=== PATIENT | male | born 1970 | race Caucasian/White ===

== ENCOUNTER 2019-01-07 14:58 | Emergency (ER) | payer MEDICAID, SELFPAY ==
--- NOTE | 2019-01-07 15:00 | W.ED.GENAD ---
Discharge Plan Disposition Patient Disposition: HOME Condition: Stable Discharge Details Chief Complaint: DentalOral Clinical Impression: Dental infection, Dental abscess Primary Care Provider: Carlton Rosales ED Provider: Ailyn Webster Home Meds and New Rx's Prescriptions: New clindamycin HCl 150 mg capsule 450 mg PO TID 7 Days Qty: 63 RF: 0 Continued gemfibrozil 600 MG tablet 600 mg PO BID RF: 0 metronidazole 500 MG tablet 500 mg PO QID Qty: 40 RF: 0 Xarelto 10 mg Tablet 10 mg PO DAILY RF: 0 Discharge Instructions Instructions: Dental Abscess (ED) Additional Instructions: Take the antibiotics until finished. Take Tylenol as needed and directed for pain. Follow-up with a dentist for reevaluation. Return to the emergency department if you develop any worsening or new concerning symptoms. Discharge Data Discharge Date/Time-TO BE ENTERED AT DEPARTURE: 01/07/19 16:04 Discharge Physician: Ailyn Webster Medical Decision Making 48-year-old male with a history of hypertension and DVT on Xarelto presents with right lower tooth pain with concern for abscess for the past 5 days. Denies fever. Patient appears nontoxic. Afebrile. Speaking in full sentences. No trismus, drooling, submandibular swelling. There are dental caries and poor dentition throughout. There is right lower jaw pain and swelling. No obvious discrete abscess noted but there may be purulent discharge underneath. 2 cc of lidocaine with epinephrine injected in area of edema right lower jaw. There was approximately 3cc of serosanguineous drainage removed with 18-gauge needle and right lower jaw. Area was flushed and patient gargled with sterile water. Bleeding well controlled. Patient observed for 30 minutes and no further bleeding. A dose of clindamycin was given here as well as a prescription. Patient was advised to follow-up with a dentist for reevaluation and to return here anytime if worse. HPI General Mode of arrival: ambulatory. Date/Time Provider Initiated Documentation: 01/07/19 14:59. Limitations to Documentation: no limitations. Information obtained by: patient. HPI Narrative: Pt is a 48yo M who presents with right lower tooth pain for the past 6 days. Patient states the area is swollen and painful and is concerned about an abscess. He denies any fever. Patient is on Xarelto for history of multiple DVTs. He denies any chest pain or shortness of breath. Related Data Home Medications Medication Instructions Recorded Confirmed gemfibrozil 600 mg PO BID 06/25/15 01/07/19 metronidazole 500 mg PO QID #40 tab 10/24/16 01/07/19 Xarelto 10 mg PO DAILY 01/07/19 01/07/19 clindamycin HCl 450 mg PO TID 7 Days #63 cap 01/07/19 Previous Rx's Medication Instructions Recorded metronidazole 500 mg PO QID #40 tab 10/24/16 clindamycin HCl 450 mg PO TID 7 Days #63 cap 01/07/19 Allergies Allergy/AdvReac Type Severity Reaction Status Date / Time Penicillins AdvReac Mild Diarrhea Unverified 01/07/19 15:04 Review of Systems All systems reviewed & are unremarkable except as noted in HPI and below Constitutional Constitutional: Reports as per HPI, Denies chills and Denies fever(s) Eyes Eyes: Denies blurry vision ENT Ears, Nose, Mouth, and Throat: Denies dizziness, Denies sore throat and Denies throat swelling Cardiovascular Cardiovascular: Denies chest pain and Denies dyspnea Respiratory Respiratory: Denies cough and Denies dyspnea Gastrointestinal Gastrointestinal: Denies abdominal pain, Denies diarrhea and Denies vomiting Genitourinary Genitourinary: Denies hematuria and Denies dysuria Musculoskeletal Musculoskeletal: Denies back pain and Denies numbness Integumentary/Breasts Skin/Breast: Denies lesions and Denies rash Neurologic Neurologic: Denies dizziness, Denies focal weakness and Denies numbness Allergic/Immunologic Allergic/Immunologic: Denies throat swelling COUNTS INCLUDE 234 BEDS AT THE [facility] Medical History DVT (deep venous thrombosis) (Chronic) Hx of hyperlipidemia (Acute) Surgical History History of appendectomy (Chronic) History of eye surgery (Acute) Social History Smoking/Tobacco Use Status: Current every day Drug use: Never Do you feel safe at home: Yes Do you feel safe in your relationship?: Yes Exam Const General: cooperative, healthy appearing and no acute distress HENMT Head: normal to inspection Ears: hearing grossly normal bilaterally, external ears normal and TM's normal bilaterally General nose exam: external nose normal Face and sinus: normal facial exam Teeth image: 1. Localized edema and erythema and tenderness to palpation. No obvious fluctuant abscess noted. Throat: posterior oropharynx normal Eyes General: appearance normal, both eyes and all related structures Pupils: PERRL EOM: EOM intact bilaterally Neck Neck: normal visual inspection and No submandibular swelling Lymphatic: no lymphadenopathy noted Resp Effort & Inspection: normal respiratory effort and able to speak in complete sentences Cardio Rate: regular rate Neuro Cognition: normal cognition Speech: speech normal Motor: muscle tone normal throughout Sensory Exam: no sensory deficits noted Extrem General: full ROM Psych Appearance: grossly normal Mental Status: mental status grossly normal Speech and Movement: speech and movement normal Affect: normal affect Procedures Abscess I/D Site: Other (lower posterior tooth) Side (if applicable): Right Local Anesthetic: Lidocaine 1% and With Epi Amount of anesthesia used (mL): 2 Technique: Needle Aspiration Amount of fluid expressed (mL): 3 Irrigation: Yes Packing used?: None Complications: Bleeding (minor, stopped with pressure)
[2019-01-07 15:02] VITALS: BP 164/102; PULSE 86; RESP 18; TEMP 36.4; O2SAT 97
[2019-01-07] MEDS: Acetaminophen 500 MG TAB (16:00)
[2019-01-07] MEDS: Clindamycin 150 MG CAP 450 MG PO (16:00)
== END 2019-01-07 16:04 | disposition home or self-care (01) ==
PROVIDERS: Emergency Provider Physician Assistant; PCP General Practice
DX: K04.7 Periapical abscess without sinus (principal); I10 Essential (primary) hypertension; Z79.01 Long term (current) use of anticoagulants
CPT/HCPCS: 10060; 99283

== ENCOUNTER 2019-04-15 10:11 | Outpatient (CLI) | payer MEDICAID, SELFPAY ==
[2019-04-15 10:52] LABS: HCT 46.2 % (40.0-50.0); Mean Corp. HGB Concentration 34.6 g/dL (32.0-36.0); Mean Corpuscular Volume 86.5 fL (80-95); Mean Platelet Volume 11.7 fL (8.0-11.0); Platelet Count 227 x1000/uL (130-400); RBC 5.34 m/cumm (4.50-6.00); RBC Distribution Width 13.3 % (11.8-14.1); White Blood Cell Count 8.55 k/cumm (4.4-10.8)
[2019-04-15 11:52] LABS: ALT 115 U/L (16-63); AST 49 U/L (15-37); BUN 10 mg/dL (7-18); CREATININE 0.71 mg/dL (0.70-1.30); Calcium 9.1 mg/dL (8.5-10.1); Calculated LDL 144 mg/dL (<100); Chloride 102 mmol/L (98-107); Cholesterol 205 mg/dL (<200); Glucose 163 mg/dL (74-106); HDL Cholesterol 20 mg/dL (40-60); Sodium 139 mmol/L (136-145); Triglyceride 209 mg/dL (<150)
[2019-04-15 12:30] LABS: Hemoglobin A1C 8.6 % (3.8-5.6)
[2019-04-16 09:39] LABS: Von Willebrand Factor Antigen 165 % (50-185)
[2019-04-19 09:38] LABS: Factor 8 Assay 178 % (50-150)
[2019-04-21 09:44] LABS: Factor V Leiden(R506Q) Mut Heterozygous (Negative)
== END 2019-04-15 10:31 ==
PROVIDERS: PCP Nurse Practitioner Family; Visit Provider Nurse Practitioner Family
DX: E11.9 Type 2 diabetes mellitus without complications (principal); Z86.718 Personal history of other venous thrombosis and embolism; E78.5 Hyperlipidemia, unspecified
CPT/HCPCS: 36415; 80048; 80061; 81241; 85027; 85245; 85246; 85397; 82043; 82570; 83036; 84450; 84460; 85240

== ENCOUNTER 2019-06-03 12:10 | Outpatient (REF) | payer MEDICAID, SELFPAY ==
[2019-06-03 19:44] LABS: PROTEIN 125.3 mg/dL
[2019-06-03 19:47] LABS: COMMENT (LAB VIEW ONLY) 146.09 mg/dL; Prot/Crea Ur Ratio 0.85
[2019-06-03 20:00] LABS: Bilirubin Negative (Negative); Blood Negative (Negative); Clarity Clear (Clear); Glucose 500 mg/dL (Negative); Ketones Negative (Negative); Leukocyte Esterase Negative (Negative); Nitrite Negative (Negative); Specific Gravity >= 1.030 (1.005-1.025); Urobilinogen 0.2 EU/dL (Up TO 0.2)
[2019-06-03 20:27] LABS: Bacteria Negative HPF (Negative); C & S Indicated? No; Crystals Negative HPF (Negative); Epithelial Cells Negative HPF (Negative); Mucus Negative (Negative); RBC Negative HPF (0-2); WBC Negative HPF (0-5)
== END 2019-06-03 12:30 ==
LOC: NCHCN 12:10
PROVIDERS: PCP Nurse Practitioner Family; Visit Provider Nurse Practitioner Family
DX: E11.9 Type 2 diabetes mellitus without complications (principal); E78.5 Hyperlipidemia, unspecified
CPT/HCPCS: 81003; 81015; 82565; 84156

== ENCOUNTER 2020-02-21 03:35 | Outpatient (CLI) | payer MEDICAID, SELFPAY ==
[2020-02-22 16:50] LABS: COVID-19 RT-PCR UVMMC Result Negative (Negative)
== END 2020-02-21 03:55 ==
PROVIDERS: PCP Nurse Practitioner Family; Visit Provider Family Medicine
DX: Z11.59 Encounter for screening for other viral diseases (principal); Z01.811 Encounter for preprocedural respiratory examination
CPT/HCPCS: U0003

== ENCOUNTER 2020-02-24 04:04 | Outpatient (CLI) | payer MEDICAID, SELFPAY ==
[2020-02-24] MEDS: Albuterol HFA 18 GM 200 PUFF INH IH (13:58)
[2020-02-24] MEDS: Inhaler, Assist Device 1 EACH MC (13:58)
--- NOTE | 2020-02-24 18:00 | W.PFT ---
Date of service: 02/24/20 Time of Service: 01:07 Pulmonary Function Test Result Interpretation Spirometry: Borderline Mild obstructive airways disease with no bronchodilator response, May be a normal variant Lung Volumes: No restriction Diffusion Capacity: Normal Airway Pressure: Normal Impression Overall, likely, normal pulmonary function study, There may be borderline mild obstruction, however this is likely a normal variant, and not an abnormal finding. If underlying asthma is suspected, proceeding with methacholine challenge testing may prove to be useful Clinical Correlation therefore is recommended.
--- NOTE | 2020-02-28 08:21 | W.PFT ---
Date of service: 02/24/20 Time of Service: 01:07 Pulmonary Function Test Result Interpretation Spirometry: No evidence of obstructive airways disease, no bronchodilator response Lung Volumes: No evidence of restriction Diffusion Capacity: Normal Airway Pressure: Normal Impression Normal pulmonary function test Clinical Correlation therefore is recommended.
== END 2020-02-24 04:24 ==
PROVIDERS: PCP Nurse Practitioner Family; Visit Provider Nurse Practitioner Family
DX: Z02.79 Encounter for issue of other medical certificate (principal); Z13.83 Encounter for screening for respiratory disorder NEC; Z72.0 Tobacco use
CPT/HCPCS: 94060; 94726; 94729

== ENCOUNTER 2020-04-20 16:30 | Outpatient (REF) | payer MEDICAID, SELFPAY ==
[2020-04-22 14:15] LABS: COVID-19 RT-PCR UVMMC Result Negative (Negative)
== END 2020-04-20 16:31 | disposition home or self-care (01) ==
LOC: NCHCN 16:30
PROVIDERS: PCP Family Medicine; Visit Provider Family Medicine
DX: Z20.822 Contact with and (suspected) exposure to COVID-19 (principal); J02.9 Acute pharyngitis, unspecified
CPT/HCPCS: U0003

== ENCOUNTER 2020-05-11 17:36 | Outpatient (REF) | payer MEDICAID, SELFPAY ==
[2020-05-11 21:29] LABS: ALT 106 U/L (16-63); AST 44 U/L (15-37); Anion Gap 10.8 mmol/L (3-11); BUN 13 mg/dL (7-18); CO2 26.2 mmol/L (21.0-32.0); CREATININE 0.9 mg/dL (0.70-1.30); Calcium 9.3 mg/dL (8.5-10.1); Chloride 101 mmol/L (98-107); Cholesterol 200 mg/dL (<200); Glucose 148 mg/dL (74-106); HDL Cholesterol 19 mg/dL (40-60); Sodium 138 mmol/L (136-145); Triglyceride 417 mg/dL (<150)
[2020-05-11 22:07] LABS: LDL CHOLESTEROL 113 mg/dL (<100)
== END 2020-05-11 17:37 | disposition home or self-care (01) ==
LOC: NCHCN 17:36
PROVIDERS: PCP Family Medicine; Visit Provider Nurse Practitioner Family
DX: E78.5 Hyperlipidemia, unspecified (principal)
CPT/HCPCS: 80048; 80061; 83721; 84450; 84460

== ENCOUNTER 2020-08-01 02:32 | Outpatient (CLI) | payer MEDICAID, SELFPAY ==
--- NOTE | 2020-08-01 | DI.US_ITS ---
Exam(s) US SOFT TISS ABD WALL/LOW BACK EXAM: US SOFT TISS ABD WALL/LOW BACK CLINICAL HISTORY: LUMP LOWER RT BACK, R22.9. TECHNIQUE: Ultrasound was performed using standard protocol. COMPARISON: No exams were available for comparison FINDINGS: Sonographic assessment utilizing grayscale and color Doppler imaging was performed and targeted to th e area of clinical concern. There is a 4.4 x 1.6 x 5.6 cm subcutaneous mass in the right lower back corresponding to the palpable abnormality. No internal blood flow is seen. No cystic component is identified. It is isoechoic t o the surrounding fat. This likely reflects a lipoma. If there is continued clinical concern, an MR I may be obtained for further evaluation. IMPRESSION: DATA REPOSITORY:
== END 2020-08-01 02:52 ==
PROVIDERS: PCP Family Medicine; Visit Provider Nurse Practitioner Family
DX: R22.2 Localized swelling, mass and lump, trunk (principal)
CPT/HCPCS: 76705

== ENCOUNTER 2021-09-27 18:35 | Outpatient (REF) | payer MEDICAID, SELFPAY ==
[2021-09-27 19:20] LABS: HCT 40.2 % (40.0-50.0); HGB 13.8 g/dL (13.5-17.5); MCH 29.6 pg (27.0-33.0); MCHC 34.3 % (32.0-36.0); MCV 86 fL (80-95); MPV 12.6 fL (8.0-11.0); Platelet Count 235 10^3/uL (130-400); RBC 4.66 10^6/uL (4.36-5.78); RDW 12.1 % (11.8-14.1); RDW-SD 38.1 fL; WBC 7.75 10^3/uL (4.4-10.8)
[2021-09-27 19:41] LABS: Iron 63 ug/dL (65-175); Total Iron Binding Capacity 342 ug/dL (250-450); Transferrin Sat 18 % (20-55)
[2021-09-27 19:43] LABS: ALT 170 U/L (16-63); AST 107 U/L (15-37); Albumin 4.2 g/dL (3.4-5.0); Alkaline Phosphatase 80 U/L (46-116); Anion Gap 10.3 mmol/L (3-11); BUN 18 mg/dL (7-18); Bilirubin, Total 0.4 mg/dL (0.2-1.0); CO2 25.7 mmol/L (21.0-32.0); CREATININE 1.2 mg/dL (0.70-1.30); Calcium 8.9 mg/dL (8.5-10.1); Chloride 100 mmol/L (98-107); Glucose 177 mg/dL (74-106); Potassium 3.7 mmol/L (3.5-5.1); Sodium 136 mmol/L (136-145); Total Protein 7.1 g/dL (6.4-8.2)
[2021-10-01 14:33] LABS: HCV RNA Qualitative Undetected (Undetected)
== END 2021-09-27 18:36 | disposition home or self-care (01) ==
LOC: NCHCN 18:35
PROVIDERS: PCP Family Medicine; Visit Provider Nurse Practitioner Family
DX: E11.9 Type 2 diabetes mellitus without complications (principal); R74.8 Abnormal levels of other serum enzymes
CPT/HCPCS: 80053; 85027; 87522; 83540; 83550

== ENCOUNTER 2021-10-06 12:12 | Emergency (ER) | payer MEDICAID, SELFPAY ==
[2021-10-06 12:19] VITALS: BP 142/89; PULSE 88; RESP 18; TEMP 36.6; O2SAT 96
--- NOTE | 2021-10-06 12:26 | W.ED.GENAD ---
Discharge Plan Disposition Patient Disposition: HOME Condition: Stable Discharge Details Clinical Impression: Biceps tendon tear Primary Care Provider: Sarahy Major ED Provider: Yuniel Lobo Home Meds and New Rx's Prescriptions: New oxycodone-acetaminophen [Percocet] 5-325 mg tablet 1 tab PO Q8H PRNQty: 8 0RF Continued gemfibrozil 600 MG tablet 600 mg PO BID Xarelto 10 mg Tablet 10 mg PO DAILY metformin 500 mg tablet Label Comments: TAKE TWO TABLETS BY MOUTH TWICE A DAY gemfibrozil 600 mg tablet Label Comments: TAKE ONE TABLET BY MOUTH TWICE A DAY Discharge Instructions Instructions: Tendon Rupture (ED) Additional Instructions: It would appear as though you have a biceps tendon tear. Please wear sling until reevaluation with orthopedics, be sure to do passive range of motion of your shoulder to avoid a frozen shoulder. Cool compresses every 2 hours for 20 minutes. Oxycodone as directed, this medication may cause drowsiness and constipation. You may want to consider taking [id number] stool softener while on this medication. I personally spoke with Dr. Arriaga who will have his office reach out to you on Friday to have a follow-up appointment on Friday to discuss your treatment options. Watch for new or worsening symptoms and return to the ER for any concerns. Referrals: Jimmy Arriaga MD [ [facility] STAFF PHYSICIAN] - Medical Decision Making This is a 50-year-old gentleman, [id number], coming in concern for a left arm injury that he sustained just prior to arrival when lifting an 80-100 pound bag of garbage. He states that he heard a pop and felt sudden pain. Examination is most consistent with a left distal biceps tendon tear. Patient did drive himself to the ER and therefore we will offer IM Toradol. Will place into a sling. Case discussed with orthopedics, Dr. Arriaga. He is in agreement with the treatment here in the ER and he will have his office call the patient on Friday to set up outpatient follow-up on Friday to discuss treatment options. I did relay this conversation with the patient. I will also provide a short-term analgesia prescription. Standard discharge and return precautions were provided. Patient understands, is agreeable to this plan, and has no additional questions or concerns upon discharge. This documentation was generated using Dragon dictation system, please disregard any oddities of phrase or misspellings. Medical Records Medical records reviewed: Yes I reviewed the patient's medical records. HPI General Mode of arrival: ambulatory. Date/Time Provider Initiated Documentation: 10/06/21 12:25. Limitations to Documentation: no limitations. Information obtained by: patient. History of Present Illness 50 year old M presents to the emergency department with the chief complaint of L bicep injury, described as severe, with intensity rated at 8. Quality is described as aching, and is localized to the left and upper extremity. Patient reports no radiation. Patient started experiencing this hour(s) (1) and it has been constant. Immobilization improves symptom(s), Movement worsens symptoms . Patient notes no other symptoms.. Patient did receive the following treatments prior to arrival, none Related Data Home Medications Medication Instructions Recorded Confirmed gemfibrozil 600 mg tablet 600 mg PO BID 06/25/15 10/06/21 rivaroxaban 10 mg tablet (Xarelto) 10 mg PO DAILY 01/07/19 10/06/21 gemfibrozil 600 mg tablet mg 10/06/21 10/06/21 metformin 500 mg tablet tab 10/06/21 10/06/21 oxycodone-acetaminophen 5 mg-325 1 tab PO Q8H PRN #8 tabs 10/06/21 mg tablet (Percocet) Previous Rx's Medication Instructions Recorded oxycodone-acetaminophen 5 mg-325 1 tab PO Q8H PRN #8 tabs 10/06/21 mg tablet (Percocet) Allergies Allergy/AdvReac Type Severity Reaction Status Date / Time Penicillins AdvReac Mild Diarrhea Unverified 01/07/19 15:04 General Stated Complaint: Orthopedic MONICA: 3 Review of Systems Constitutional Constitutional: Reports weakness Musculoskeletal Musculoskeletal: Denies arthralgias, Denies numbness, Reports stiffness and Reports tingling Integumentary/Breasts Skin/Breast: Denies erythema Neurologic Neurologic: Denies numbness, Reports tingling and Reports weakness PFSH All Active Problems (Updated 10/06/21 @ 12:53 by JOSE MANUEL Choudhury) Biceps tendon tear (Acute) Medical History (Updated 10/06/21 @ 12:53 by JOSE MANUEL Choudhury) DVT (deep venous thrombosis) Hx of hyperlipidemia Surgical History History of appendectomy History of eye surgery Social History Smoking/Tobacco Use Status: Current every day Smoking risk assessment performed?: Yes Drug use: Never Do you feel safe at home: Yes Do you feel safe in your relationship?: Yes Exam Const General: cooperative, healthy appearing, comfortable and no acute distress Orientation: alert and awake [facility] Head: normal to inspection, normocephalic and atraumatic Eyes Conjunctivae: conjunctivae normal Neck Neck: normal visual inspection, full ROM, trachea midline and supple Resp Effort & Inspection: normal respiratory effort and able to speak in complete sentences Cardio Rate: regular rate Rhythm: regular rhythm Skin General skin exam: no rashes or lesions noted Neuro General: patient alert, patient awake, moves all extremities and no focal motor deficits Cognition: normal cognition Speech: speech normal Gait: normal gait Sensory Exam: no sensory deficits noted Extrem General: capillary refill normal Other: Left arm shoulder, forearm, hand, wrist all unremarkable. Normal capillary refill and radial pulse. Left antecubital region lateral aspect with diffuse discomfort and just proximal to this area there appears to be a deformity consistent with a distal bicep tendon tear. There is limited flexion and extension of the elbow secondary to discomfort. There is no erythema, warmth, ecchymosis. Psych Appearance: grossly normal Mental Status: mental status grossly normal Course Vital Signs Vital signs: Vital Signs Temperature 36.6 C 10/06/21 12:19 Pulse 88 10/06/21 12:19 Respiratory Rate 18 10/06/21 12:19 Blood Pressure 142/89 H 10/06/21 12:19 Pulse Oximetry 96 10/06/21 12:19 Temperature 36.6 C 10/06/21 12:19 Temperature Source Tympanic 10/06/21 12:19 Pulse 88 10/06/21 12:19 Respiratory Rate 18 10/06/21 12:19 Blood Pressure 142/89 H 10/06/21 12:19 Pulse Oximetry 96 10/06/21 12:19 Oxygen Delivery Method Room Air 10/06/21 12:19 Oxygen Flow Rate 0 10/06/21 12:19 Pain Level 10 10/06/21 12:19
--- NOTE | 2021-10-06 12:53 | NUR.NOTE ---
Orthopaedics to contact patient on Friday for f/u left bicep tendon tear p/Yuniel Aguirre
[2021-10-06] MEDS: Ketorolac 60 MG/2 ML VIAL IM (12:58)
== END 2021-10-06 13:10 | disposition home or self-care (01) ==
PROVIDERS: Emergency Provider Physician Assistant; PCP Family Medicine
DX: S46.212A Strain of muscle, fascia and tendon of other parts of biceps, left arm, initial encounter (principal); X50.0XXA Overexertion from strenuous movement or load, initial encounter
CPT/HCPCS: 96372; 99284; 99283; J1885

== ENCOUNTER → 2021-10-09 01:06 | Outpatient (CLI) | payer MEDICAID, SELFPAY ==
--- NOTE | 2021-10-09 06:30 | DI.MRI_ITS ---
Exam(s) MR UPPER JOINT LT WO EXAM: MR UPPER JOINT LT WO CLINICAL HISTORY: Distal biceps rupture,TRAUMATIC, S46.212A TECHNIQUE: Multiplanar multisequence MRI of the area of concern around the elbow was performed COMPARISON: None FINDINGS: MARROW:No evidence of fracture nor osteochondral defects. No significant osseous lesions. No abnorm al intraosseous signal at the level of the epicondyles. Radial head and neck are intact. Tip of the coronoid process is intact. No loose intra-articular bodies evident. ARTICULATION: Minimal amount of increased joint fluid. No large joint effusion or loose intra-articu lar bodies. No osteochondral defects at the level the capitellum and trochlea. OLECRANON BURSA: No abnormal swelling nor fluid collection. LIGAMENTS: No evidence of tear of the medial collateral ligament. Radial collateral ligament also in tact. EPICONDYLES: No evidence of epicondylitis. No significant tears of the common flexor and extensor te ndons. CUBITAL FOSSA: No significant findings. No osteophytic impingement. TENDONS: Brachialis: Mild increased signal at the musculotendinous junction. No high-grade tear. Biceps brachii: There is a high-grade tear biceps tendon with retraction of the musculotendinous junc tion. Triceps: Intact. IMPRESSION: 1. Main finding here is a full-thickness tear of the biceps tendon with retraction of the musculotend inous junction. There is no abnormal intraosseous signal at the level the radial tuberosity. 2. Mild increased signal in the brachialis muscle-tendon origin region but no high-grade tear. Raquel ps intact. 3. No evidence of epicondylitis nor collateral ligament tears. DATA REPOSITORY:
== END ==
PROVIDERS: PCP Family Medicine; Visit Provider Student in an Organized Health Care Education/Training Program
DX: S46.212A Strain of muscle, fascia and tendon of other parts of biceps, left arm, initial encounter (principal); X58.XXXA Exposure to other specified factors, initial encounter
CPT/HCPCS: 73221

== ENCOUNTER 2021-10-09 14:37 | Outpatient (CLI) | payer MEDICAID, SELFPAY ==
[2021-10-09 14:51] LABS: Source Nasal/Nares
[2021-10-09 23:58] LABS: COVID-19 PCR Negative (Negative)
== END 2021-10-09 14:38 | disposition home or self-care (01) ==
LOC: LBO 14:37
PROVIDERS: PCP Nurse Practitioner Family; Referring Provider Nurse Practitioner Family; Visit Provider Student in an Organized Health Care Education/Training Program
DX: Z20.822 Contact with and (suspected) exposure to COVID-19 (principal); Z01.818 Encounter for other preprocedural examination
CPT/HCPCS: 87635

== ENCOUNTER 2021-10-11 11:26 | Day surgery (SDC) | payer MEDICAID, SELFPAY ==
[2021-10-11] VITALS (9 sets, daily range): BP systolic 79–121; BP diastolic 47–85; PULSE 62–75; RESP 14–23; TEMP 36.4–36.7; O2SAT 95–98; BMI 32.8
[2021-10-11] MEDS: Lactated Ringers 1,000 ML 30 ML IV (12:04)
--- NOTE | 2021-10-11 12:11 | ANES.PREOP_ITS ---
General Info Date of Service Date Performed: 10/11/21 Height: 5 ft 8 in Weight: 98.1 kg Body Mass Index (BMI): 32.8 Surgical Procedure: Operation Date: 10/11/21 13:55 Proposed Procedure Side Surgeon p Distal Bicep Tendon Repair Left Jimmy Arriaga MD Meds Allergies and Home Medications Allergies Allergy/AdvReac Type Severity Reaction Status Date / Time Penicillins AdvReac Mild Diarrhea Unverified 10/11/21 11:51 Home Medication Medication Instructions Recorded gemfibrozil 600 mg tablet 600 mg PO BID 06/25/15 rivaroxaban 10 mg tablet (Xarelto) 10 mg PO DAILY 01/07/19 metformin 500 mg tablet 500 tab 10/06/21 lisinopril 5 mg tablet 5 mg PO DAILY 10/09/21 Current Visit Medications: Current Medications Generic Name Dose Route Start Last Admin Trade Name Freq PRN Reason Stop Dose Admin Ringer's Solution 1,000 mls @ 30 mls/hr 10/11/21 06:00 10/11/21 12:04 IV 11/09/21 23:59 30 mls/hr INFUSION JARRETT Administration Cefazolin Sodium/Dextrose 2 gm in 50 mls @ 100 mls/hr 10/11/21 06:00 Ancef Duplex IVPB 10/11/21 16:00 PREOP JARRETT IV Miscellaneous Supplies 1 each 10/11/21 06:00 Iv Access IV 11/09/21 23:59 DIRECTED JARRETT Oxycodone HCl 5 - 10 mg 10/11/21 07:24 Oxycodone 5 Mg Tab PO Q4H PRN PRN Sodium Chloride 0 ml 10/11/21 06:00 Normal Saline Flush 10 Ml Syr IV 11/09/21 23:59 PRN PRN Sodium Chloride 0 ml 10/11/21 06:00 Normal Saline 10 Ml Vial IJ 11/09/21 23:59 DIRECTED PRN Sterile Water 0 ml 10/11/21 06:00 Water,Injection,Sterile 10 Ml Vial IJ 11/09/21 23:59 DIRECTED PRN PFSH Active Problems Active Problems: Problem Status Onset Code Traumatic rupture of left distal biceps tendon 10/06/21 S46.212A Medical History Medical History DVT (deep venous thrombosis) Factor V Leiden Hx of hyperlipidemia Surgical History Surgical History History of appendectomy History of eye surgery Tobacco Smoking/Tobacco Use Status: Current every day (Quit end of April) Substance Use Substance use: Never Vital Signs and Lab Results Vital Signs Most Recent Vital Signs in EMR: Most Recent Vital Signs Temp Pulse Resp BP Pulse Ox 36.7 C 62 17 121/85 98 10/11/21 11:45 10/11/21 11:45 10/11/21 11:45 10/11/21 11:45 10/11/21 11:45 Lab Results Blood Type / Crossmatch: No Data to Display Complete Blood Count: White Blood Count 7.75 10^3/uL (4.4-10.8) 09/27/21 15:40 Red Blood Count 4.66 10^6/uL (4.36-5.78) 09/27/21 15:40 Hemoglobin 13.8 g/dL (13.5-17.5) 09/27/21 15:40 Hematocrit 40.2 % (40.0-50.0) 09/27/21 15:40 Platelet Count 235 10^3/uL (130-400) 09/27/21 15:40 Complete Metabolic Panel: Sodium Level 136 mmol/L (136-145) 09/27/21 15:40 Potassium Level 3.7 mmol/L (3.5-5.1) 09/27/21 15:40 Chloride Level 100 mmol/L (98-107) 09/27/21 15:40 Carbon Dioxide Level 25.7 mmol/L (21.0-32.0) 09/27/21 15:40 Blood Urea Nitrogen 18 mg/dL (7-18) 09/27/21 15:40 Creatinine 1.2 mg/dL (0.70-1.30) 09/27/21 15:40 Estimated GFR/1.73 m2 >= 60.00 (mL/min/1.73m2) 09/27/21 15:40 Calcium Level 8.9 mg/dL (8.5-10.1) 09/27/21 15:40 Albumin 4.2 g/dL (3.4-5.0) 09/27/21 15:40 Glucose Level 177 mg/dL (74-106) H 09/27/21 15:40 Liver Function Panel: Alanine Aminotransferase (ALT/SGPT) 170 U/L (16-63) H 09/27/21 15:40 Aspartate Amino Transf (AST/SGOT) 107 U/L (15-37) H 09/27/21 15 :40 Coagulation Panel: No Data to Display Cardiac Panel: No Data to Display Arterial Blood Gas: No Data to Display Venous Blood Gas: No Data to Display Pancreas Panel: No Data to Display Thyroid Panel: No Data to Display Infectious Disease: Coronavirus (COVID-19)(PCR) Negative (Negative) 10/09/21 14:20 Coronavirus 2019 Source Nasal/Nares 10/09/21 14:20 Hepatitis C RNA Quantitative Not Applicable 09/27/21 15:40 Blood Cultures: No Data to Display Toxicology Panel: No Data to Display Imaging and Studies Imaging and Studies Study information below may be from another EMR and interpreted by another provider. Please see original notes in EMR for more complete details. Pulmonary Function Summary: Impression Normal pulmonary function test Clinical Correlation therefore is recommended. 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 Anesthesia Assessment and Plan Anesthesia History Personal History: No History of Anesthesia Complications Family History: No Family History of Anesthesia Complications Exercise Tolerance Exercise Tolerance: Metabolic Equivalents>4 Pertinent Negatives Pertinent Negatives: No Symptoms of GERD, No Major Cardiovascular Symptoms or Complaints, No Major Pulmonary Symptoms or Complaints and No History of CVA/TIA Cardiac & Pulmonary Exam Cardiac Exam: Normal S1/S2 Heart Sounds Pulmonary Exam: Clear Bilateral Breath Sounds Cardiac and Pulmonary Comment:: Factor V Leiden, chronic anticoagulation, hx of DVTs, no Hx of PE Xarelto held 10/10, and 10/11 Implantable Cardiac Device Does patient have a Pacemaker or an ICD?: No Airway Exam Known Difficult Airway: No Mallampati Class: 2 Mouth Opening: Normal (> 3cm) Thyromental Distance: Greater than 3 cm Facial Hair: Full Dennis Neck Range of Motion: Full ROM Neck Circumference: Normal Teeth Condition: Generalized Poor Dentition (Patient states none loose) ASA Classification ASA Score: ASA 2 Emergency Case?: No NPO Status NPO Status: NPO Clears >2 hours, Solids >8 hours Anesthesia Plan Resuscitation Status: Full Code Anesthesia Technique: General Anesthesia Airway Planned: Endotracheal Tube Pain Management: Surgeon and patient request nerve block Monitors Used: Standard Monitors Preoperative Comments:: Diabetic, oral agent only Gluc check 128
--- NOTE | 2021-10-11 12:45 | DI.RAD_ITS ---
Exam(s) XR ELBOW LT LIMITED EXAM: XR ELBOW LT LIMITED CLINICAL HISTORY: (1) Traumatic rupture of left distal biceps tendon. TECHNIQUE: 2D and realtime digital imaging was performed. COMPARISON: No exams were available for comparison FINDINGS: Fluoroscopy was provided in the OR for Dr. Arriaga. Hardcopy images show a metallic anchor and bony lashell cency at the radial tubercle related to biceps tendon repair. Please see procedure note for details. Fluoro time: 0.1seconds RADIATION DOSE DELIVERED: farzana Bosch=0.33 mGy
[2021-10-11] MEDS: ceFAZolin 2 GM/50 ML BAG IVPB (13:43)
--- NOTE | 2021-10-11 13:55 | W.ANESNERVE ---
Nerve Block Single Injection Procedure Date and Time Date Performed: 10/11/21 Procedure Start: 13:16 Location Where Procedure Performed Procedure Location: Day Surgery Unit Reason Performed: Postoperative Analgesia Requesting Provider: Jimmy Arriaga Timeout Performed Timeout Performed: Yes Monitoring Used ECG, Blood Pressure, SpO2 and See EMR for corresponding vital signs Sterility Sterility: Hand Hygiene, Surgical Cap, Surgical Mask, Sterile Gloves and Chlorhexidine Sedation Given During Procedure Sedation Given (Indicate Dose Given): Versed IV Dose:: 2mg and Precedex IV Dose:: 12mcg Patient Mental Status Patient Mental Status: Sedate with meaningful communication Nerve Block 1st Nerve Block: Laterality: Left Block Type: Supraclavicular Needle / Catheter Used: 100mm SonoPlex II Local Anesthetic Bolus (Indicate Dose Given): Lidocaine used for local infiltration of skin and Bupivacaine 0.5% Dose:: 15cc Additives (Indicate Dose Given): Precedex Dose:: 75mcg Ultrasound: Sterile probe cover and gel used Ultrasound Image Saved?: Yes Nerve Stimulator: Not Used Paresthesia: None Procedure Tolerated: No Complications Procedure Outcome: Successful Performed By: Diandra Buchanan Supervised By: Jannette Hwang
--- NOTE | 2021-10-11 14:00 | W.PM.OP ---
Operative Note Operative Note DATE OF PROCEDURE: 10/11/21 PRE-OP DIAGNOSIS: Left distal biceps tendon rupture POST-OP DIAGNOSIS: same PROCEDURE: Left distal biceps tendon repair, CPT #09875 SURGEON: Jimmy Arriaga SUPERVISOR CAR [employer] YARD: Delmi Wells ANESTHESIA TYPE: Local By Surgeon, General LMA/ETT and Primary Nerve Block Refer to Anesthesia Record ESTIMATED BLOOD LOSS: 10 TOURNIQUET TIME: 0 COMPLICATIONS: None Patient was transported to: PACU Patient's condition: stable Implants: Arthrex distal biceps button Indications: Please see complete medical record for details. Findings: Completely torn and retracted distal biceps tendon. Excellent hemostasis. Procedure Description: In the operating room, general anesthesia was induced. The patient was positioned supine on the operating room table. All bony prominences were well-padded. Preoperative antibiotics were administered. The left elbow was prepped and draped in the usual sterile fashion. The correct patient, procedure, and side of the procedure were all verified prior to incision. The radial tuberosity was localized fluoroscopically with the forearm fully supinated. The usual transverse incision was pretty injected with 0.25% bupivacaine containing epinephrine. Skin was incised taking care to mobilize and retract superficial neurovascular structures. Blunt dissection was used to localize the radial tuberosity. Retractors were placed on the ulnar margin with limited retraction radially. Minimal tendon and soft tissue remnant was cleared off the radial tuberosity. The incision was packed with a moist lap while the biceps tendon was retrieved. Gentle elbow flexion allowed it digital retrieval of the retracted biceps tendon. The end was trimmed and below the tightest of frayed corners. The FiberWire fiber loop was used to prepare the distal end prior to passing the tails through the distal biceps cortical button and then back through the prepared tendon using the tapered free needle for the modified tension slide technique. The tendon had significant tension and steady traction was maintained to more readily achieved reduction to the radial tuberosity and gentle flexion. The tendon was allowed to retract proximally and attention turned back to the radial tuberosity. While maintaining full supination the radial tuberosity was confirmed fluoroscopically and then the bicortical spade tipped drill was placed taking care to minimally penetrate the far cortex aiming slightly posterior proximal and ulnar to avoid the PIN. The tendon measured 8 mm so an 8 mm low-profile reamer was used over the drill creating a unicortical socket. The reamings and wound were copiously irrigated. Retractors were placed ulnarly and minimally radially. The button was passed into the socket and just through the far cortex, released from the decommissioning well site manager, and flipped using the biceps tendon sutures. With the elbow in gentle flexion and under direct visualization the biceps tendon was then walked into the socket. A [place] was used to help the corners pass around the ends of the bone socket. The elbow was taken through range of motion with good tendon socket fixation and no gapping. Final tightening and tension was applied to the free suture ends and knots were secured over the tendon. A single and was passed through the tendon and the knots tied again adding added fixation. The repair was inspected and demonstrated excellent anatomy and fixation strength. C-arm fluoroscopy confirmed appropriate cortical button placement. The wound was irrigated copiously with normal saline. Hemostasis was excellent. Subcutaneous tissue was carefully reapproximated using 2-0 Monocryl. Skin was closed using 3-0 Monocryl buried in rapid fashion. Skin glue applied over the incision followed by Mepilex bandage. The radial pulse was 2+. There were no signs of blood clot. The extremity was wrapped from hand through arm and gentle compression with Chirag bandages. The arm was placed into a sling immobilizer and about 90 degrees of flexion. The patient awoke from anesthesia without complication and was transferred to the recovery room in a stable condition.
[2021-10-11] MEDS: Bupivacaine 0.25% Pres-Free W/EPI 30 ML VIAL (15:10)
--- NOTE | 2021-10-11 15:45 | W.PM.DSUDISC ---
Discharge Plan Disposition Patient Disposition: HOME Condition: Stable Discharge Details Reason For Visit: Left biceps surgery Attending Provider: Jimmy Arriaga Primary Care Provider: Meghana Murphy Home Meds and New Rx's Prescriptions: New oxycodone 5 mg tablet 5 - 10 mg PO Q4H MDD 30 mg PRN (Reason: moderate to severe pain) Qty: 18 0RF Continued lisinopril 5 mg tablet 5 mg PO DAILY gemfibrozil 600 MG tablet 600 mg PO BID Xarelto 10 mg Tablet 10 mg PO DAILY metformin 500 mg tablet 500 tab Label Comments: TAKE TWO TABLETS BY MOUTH TWICE A DAY Discharge Instructions Additional Instructions: Surgery: Left distal biceps tendon repair Activity: Non-weightbearing left upper extremity. Recommend ice and elevation to minimize swelling and discomfort. Keep your elbow bent about 90 degrees through the weekend. Use the sling when out of the house and as needed to protect the elbow. You may gently do some gentle extension, flexion, and supination, pronation when you feel comfortable. You may use your fingers and hand lightly. Do not lift any weight. A physical therapy prescription will be provided separately in the office at follow-up. Prescriptions: Resume home Xarelto medication tomorrow morning to prevent a blood clot Oxycodone 5 mg take 1-2 every 4-6 hours as needed for severe pain You may use [id number] Tylenol (acetaminophen) as needed for mild to moderate pain. These pain medications may be taken all at once or in different combinations as needed. Also, recommend Colace (docusate) as a stool softener as surgery and pain medicine cause constipation. You may try [id number] diphenhydramine (Benadryl) 25-50 mg nightly as a sleep aid Dressings: You may loosen, adjust, and/or remove Chirag bandages for comfort and swelling. Keep the Band-Aid underneath in place until follow-up. You may shower after 5 days. If the Mepilex Band-Aid absorbs water, please change it for a clean and dry Band-Aid. Follow-up: 10-[address] Arriaga Let us know right away if you develop any redness, drainage, fevers, chest pain, or trouble breathing. Do not drink alcohol or drive for at least 24 hours after anesthesia. Please call the office during business hours with any questions or concerns. Discharge Orders Discharge Orders: Discharge Order (Routine); Ordered 10/11/21 Ordered By: Jimmy Arriaga DS: Diagnosis Discharge Diagnosis (1) Traumatic rupture of left distal biceps tendon: Status: Acute
--- NOTE | 2021-10-11 17:21 | W.ANESPOSTOP ---
Postoperative Evaluation Date, Time and Location Date Performed: 10/11/21 Time Performed: 16:04 Patient Location: PACU Vital Signs Most Recent Imported Vital Signs: Most Recent Vital Signs Temp Pulse Resp BP Pulse Ox 36.4 C L 73 18 103/84 96 10/11/21 16:43 10/11/21 16:43 10/11/21 16:43 10/11/21 16:43 10/11/21 16:43 Pain Score Most Recent Pain Score: Most Recent Pain Score Pain Level 0 10/11/21 16:43 Assessment Mental Status: Awake (Alert & Oriented to Patient Baseline) Airway and Respiratory Function: Patent airway with normal (patient baseline) respiratory exam Cardiovascular Function: Hemodynamically Stable Hydration Status: Adequately Hydrated Nausea & Vomiting: No Nausea or Vomiting Pain: Pt. Denies Any Pain Peripheral Nerve Block: Regional nerve block not resolved at time of post operative discharge
== END 2021-10-11 17:13 | disposition home or self-care (01) ==
PROVIDERS: PCP Nurse Practitioner Family; Visit Provider Student in an Organized Health Care Education/Training Program
PROC: (CPT 24341; principal; 2021-10-11 13:45)
DX: S46.212A Strain of muscle, fascia and tendon of other parts of biceps, left arm, initial encounter (principal); X50.0XXA Overexertion from strenuous movement or load, initial encounter; F17.210 Nicotine dependence, cigarettes, uncomplicated; D68.51 Activated protein C resistance
CPT/HCPCS: 24342; 76942; 73070; J0690; J1100; J1885; J2250; J2405; J2704

== ENCOUNTER 2022-01-01 15:00 | Outpatient (CLI) | payer MEDICAID, SELFPAY ==
--- NOTE | 2022-01-01 13:30 | DI.RAD_ITS ---
Exam(s) XR ELBOW LT COMPLETE EXAM: XR ELBOW LT COMPLETE CLINICAL HISTORY: pain. TECHNIQUE: 2D digital imaging was performed. Images were obtained. AP, lateral and oblique views w ere obtained. 2D digital imaging was performed of the left elbow. Three images were obtained. AP, lateral and obl ique views were obtained. COMPARISON: XA XR ELBOW LT LIMITED from 10/11/2021 FINDINGS: BONES: There are stable post operative changes present. No fracture or dislocation. Dystrophic calci fication is seen anterior to the radius on the lateral view. There is an enthesophyte at the triceps insertion site. JOINTS: The joint spaces are well maintained. No joint effusion is present. SOFT TISSUE: Normal. IMPRESSION: Stable postoperative changes. DATA REPOSITORY: RADIATION DOSE DELIVERED:
--- NOTE | 2022-01-01 13:45 | DI.RAD_ITS ---
Exam(s) XR WRIST LT COMPLETE EXAM: XR WRIST LT COMPLETE CLINICAL HISTORY: pain. TECHNIQUE: 2D digital imaging was performed of the left wrist. Three images were obtained. PA, obl ique and lateral views were obtained. COMPARISON: None. FINDINGS: BONES: No acute fracture is present. No bony destructive lesion is seen. JOINTS: The carpal bones are normally aligned. SOFT TISSUE: Normal. IMPRESSION: Unremarkable radiographs of the left wrist. DATA REPOSITORY: RADIATION DOSE DELIVERED:
== END 2022-01-01 15:01 | disposition home or self-care (01) ==
LOC: DIORS 15:00
PROVIDERS: PCP Nurse Practitioner Family; Referring Provider Nurse Practitioner Family; Visit Provider Physician Assistant Surgical
DX: M25.532 Pain in left wrist (principal); Z98.890 Other specified postprocedural states
CPT/HCPCS: 73080; 73110

== ENCOUNTER → 2022-01-07 01:47 | Outpatient (CLI) | payer MEDICAID, SELFPAY ==
--- NOTE | 2022-01-07 08:30 | DI.MRI_ITS ---
Exam(s) MR UPPER JOINT LT WO EXAM: MR UPPER JOINT LT WO CLINICAL HISTORY: s/p biceps repair, continued elbow pain, traumatic rupture, myalgia, M79.18. TECHNIQUE: Multiplanar multisequence MRI was performed. COMPARISON: None. FINDINGS: MARROW: There is no fracture, avascular necrosis, nor bone contusion. No evidence of avascular necro sis. Mild increase intraosseous signal seen in the medial aspect of the trapezoid adjacent to it is a rticulation with the capitate. This represents some degenerative change. There is no erosion at thi s level nor elsewhere in the wrist. JOINTS: The radiocarpal joint is unremarkable. The carpal joints are unremarkable. Scapholunate dis tance is normal.No evidence of para-articular ganglion. TENDONS: Extensors: There is fluid signal consistent with tenosynovitis around the extensor tendons. However, there are no extensor tendon tear is. Flexors: Unremarkable. No tears nor tenosynovitis. No evidence of de Quervain tenosynovitis. Carpal tunnel:Unremarkable. No tendinitis, tenosynovitis nor abnormality of the median nerve therein . MUSCLES: There is increased signal seen within the pronator quadratus which is usually a normal findi ng MEDIAN NERVE: Unremarkable on this noncontrast examination. SOFT TISSUES: Unremarkable. LIGAMENTS: Unremarkable. TRIANGULAR FIBROCARTILAGE: Unremarkable. There is a small amount of fluid in the distal radioulnar mynor int. Also in the lateral aspect of the radiocarpal joint. OTHER: IMPRESSION: 1. There is teno synovitis of the extensor tendons on the dorsal aspect of the wrist. There is no ev idence of tendinitis signal nor tear signal of these tendons. No evidence of de Quervain tenosynovit is. 2. There is increased signal in the pronator quadratus muscle. This is usually a frequent normal fin ding of unclear etiology and is usually not related to disease. Less probably related to denervation due to anterior interosseous nerve entrapment. 3. Mild increased fluid noted in the distal radioulnar joint and lateral aspect of the radiocarpal mynor int. No evidence of para-articular ganglion. 4. Mild degenerative cystic foci evident in the medial aspect of the trapezoid adjacent to its articu lation with the capitate. There is no significant osseous lesion at this level and there are no eros ions. DATA REPOSITORY:
--- NOTE | 2022-01-07 08:42 | DI.MRI_ITS ---
Exam(s) MR UPPER JOINT LT WO EXAM: MR UPPER JOINT LT WO CLINICAL HISTORY: s/p biceps repair, continued wrist pain, traumatic rupture, myalgia, M79.18. TECHNIQUE: Multiplanar multisequence MRI was performed. COMPARISON: Plain films 01 January 2022 FINDINGS: Bones: There is no fracture or contusion pattern. Defect in the proximal radius at the tuberosity w ith adjacent metallic density consistent with biceps tendon repair. Biceps tendon: There has been prior biceps tendon repair. There is mild edema around the distal soheila ps tendon as well some mild thickening. Small postsurgical metallic artifacts.. There is no evidenc e of a full-thickness tendon tear. Brachialis tendon: Intact Common flexor tendons: Intact Common extensor tendons: Intact Soft tissues: Calcific density seen adjacent to proximal radius not discretely visible on MRI. IMPRESSION: Mild thickening mild edema around the distal biceps tendon but no evidence of a full thickness tear. No new abnormalities. DATA REPOSITORY:
--- NOTE | 2022-01-08 08:47 | DI.VRAD_ITS ---
PROCEDURE INFORMATION: Exam: MR Left Upper Extremity Joint Without Contrast; Wrist Exam date and time: 01/07/2022 4:18 PM Age: 51 years old Clinical indication: Left; Patient HX: Biceps tendon repair a few months ago, now wrist pain and weakness TECHNIQUE: Imaging protocol: Magnetic resonance imaging of the Left upper extremity without contrast. Exam focused on the wrist. COMPARISON: CR XR WRIST LT COMPLETE 01/01/2022 1:54 PM FINDINGS: Bones and cartilage: No fracture is identified. Minor degenerative cystic foci are present in the distal radius, multiple carpal bones and 1st metacarpal base. Largest of these is present medially in the trapezoid, where there could also be mild degenerative marrow edema. Joint spaces: The joint spaces are normally aligned. There is very small fluid in the distal radioulnar joint and radiocarpal compartment. There is mild chondromalacia and osteophyte formation involving the radiocarpal compartment. Mild osteophyte formation is also present between multiple carpal bones and at the 1st carpometacarpal joint, which also demonstrates mild chondromalacia. Scapholunate ligament: Unremarkable. No tear. Lunotriquetral ligament: Unremarkable. No tear. Triangular fibrocartilage complex: Unremarkable. No tear. Flexor compartment tendons: Unremarkable. No tear. Extensor compartment tendons: There is small fluid in the 4th extensor compartment tendon sheath, indicating mild tenosynovitis. The extensor tendons themselves appear unremarkable. Muscles: Unremarkable. No acute abnormality. Soft tissues: Unremarkable. IMPRESSION: 1. Degenerative changes as described. 2. Small fluid in the 4th extensor compartment tendon sheath, indicating mild tenosynovitis. 3. Very small fluid in the distal radioulnar joint and radiocarpal compartment, nonspecific. Dictated and Authenticated by: Alejandro Edmond MD. Ordering:JOSSELYN Marquez MD
== END ==
PROVIDERS: PCP Nurse Practitioner Family; Visit Provider Student in an Organized Health Care Education/Training Program
DX: M79.18 Myalgia, other site (principal)
CPT/HCPCS: 73221

== ENCOUNTER 2022-01-07 04:24 | Outpatient (CLI) | payer MEDICAID, SELFPAY ==
[2022-01-07 15:24] LABS: Abs Immature Grans 0.04 10^3/uL (0.0-0.06); Absolute Basophil Count 0.08 10^3/uL (0.0-0.2); Absolute Eosinophil Count 0.29 10^3/uL (0.0-0.7); Absolute Lymphocyte Count 2.55 10^3/uL (1.2-3.4); Absolute Monocyte Count 0.48 10^3/uL (0.1-0.8); Absolute Neutrophil Count 3.24 10^3/uL (1.2-6.7); Basophils % 1.2; Eosinophils % 4.3; HCT 43.1 % (40.0-50.0); HGB 15.2 g/dL (13.5-17.5); Immature Grans % 0.6; Lymphocytes % 38.2; MCH 29.2 pg (27.0-33.0); MCHC 35.3 % (32.0-36.0); MCV 83 fL (80-95); MPV 11.6 fL (8.0-11.0); Monocytes % 7.2; Neutrophils % 48.5; Platelet Count 251 10^3/uL (130-400); RDW 12.3 % (11.8-14.1); RDW-SD 37.5 fL; WBC 6.68 10^3/uL (4.4-10.8)
[2022-01-07 15:32] LABS: ESR 9 mm/hr (0-15)
[2022-01-07 15:57] LABS: C-Reactive Protein 0.19 mg/dL (0.0-0.3)
[2022-01-07 16:18] LABS: Hemoglobin A1C 8.4 % (<5.7)
== END 2022-01-07 04:25 | disposition home or self-care (01) ==
LOC: LBO 04:24
PROVIDERS: PCP Nurse Practitioner Family; Visit Provider Student in an Organized Health Care Education/Training Program
DX: S46.212A Strain of muscle, fascia and tendon of other parts of biceps, left arm, initial encounter (principal)
CPT/HCPCS: 36415; 85652; 83036; 85025; 86140

== ENCOUNTER 2022-02-12 14:21 | Outpatient (CLI) | payer MEDICAID, SELFPAY ==
--- NOTE | 2022-02-12 14:00 | DI.RAD_ITS ---
Exam(s) XR SHOULDER LT COMPLETE 2+V EXAM: XR SHOULDER LT COMPLETE 2+V CLINICAL HISTORY: left shoulder pain. TECHNIQUE: 2D digital imaging was performed. COMPARISON: No exams were available for comparison FINDINGS: Two views: There is no evidence of acute fracture nor dislocation. There is a 5 x 3 millimeter calcific density immediately above greater tuberosity indicating calcific tendinitis-bursitis. No other soft tissue calcifications evident. The subacromial space itself is not diminished. There are mild degenerative changes in the AC joint. Minimal degenerative changes in the glenohumeral joint. No osseous lesion s IMPRESSION: Calcific rotator cuff tendinitis. DATA REPOSITORY: RADIATION DOSE DELIVERED:
== END 2022-02-12 14:22 | disposition home or self-care (01) ==
LOC: DIORS 14:21
PROVIDERS: PCP Nurse Practitioner Family; Referring Provider Nurse Practitioner Family; Visit Provider Student in an Organized Health Care Education/Training Program
DX: M75.32 Calcific tendinitis of left shoulder (principal)
CPT/HCPCS: 73030

== ENCOUNTER 2022-05-21 12:30 | Outpatient (REF) | payer MEDICAID, SELFPAY ==
[2022-05-21 16:48] LABS: ALT 116 U/L (16-63); AST 47 U/L (15-37); Albumin 4.1 g/dL (3.4-5.0); Alkaline Phosphatase 87 U/L (46-116); BUN 14 mg/dL (7-18); Bilirubin, Total 0.6 mg/dL (0.2-1.0); CREATININE 0.8 mg/dL (0.70-1.30); Calcium 9.1 mg/dL (8.5-10.1); Calculated LDL 69 mg/dL (<100); Chloride 100 mmol/L (98-107); Cholesterol 166 mg/dL (<200); Estimated GFR 108.49 (mL/min/1.73m2); Glucose 260 mg/dL (74-106); HDL Cholesterol 25 mg/dL (40-60); Potassium 4.3 mmol/L (3.5-5.1); Sodium 135 mmol/L (136-145); Total Protein 7.2 g/dL (6.4-8.2); Triglyceride 363 mg/dL (<150)
== END 2022-05-21 12:31 | disposition home or self-care (01) ==
LOC: NCHCN 12:30
PROVIDERS: PCP Nurse Practitioner Family; Visit Provider Nurse Practitioner Family
DX: R74.8 Abnormal levels of other serum enzymes (principal)
CPT/HCPCS: 80053; 80061

== ENCOUNTER 2022-06-24 18:39 | Outpatient (REF) | payer MEDICAID, SELFPAY ==
[2022-06-24 21:35] LABS: Hemoglobin A1C 9.6 % (<5.7)
== END 2022-06-24 18:40 | disposition home or self-care (01) ==
LOC: NCHCN 18:39
PROVIDERS: PCP Nurse Practitioner Family; Visit Provider Nurse Practitioner Family
DX: E11.9 Type 2 diabetes mellitus without complications (principal)
CPT/HCPCS: 83036

== ENCOUNTER 2022-08-15 13:19 | Outpatient (REF) | payer MEDICAID, SELFPAY ==
[2022-08-15 14:39] LABS: Hemoglobin A1C 6.8 % (<5.7)
== END 2022-08-15 13:20 | disposition home or self-care (01) ==
LOC: NCHCN 13:19
PROVIDERS: PCP Nurse Practitioner Family; Visit Provider Nurse Practitioner Family
DX: E11.9 Type 2 diabetes mellitus without complications (principal)
CPT/HCPCS: 83036

== ENCOUNTER 2022-11-21 13:28 | Emergency (ER) | payer OTHER, MEDICAID, SELFPAY ==
[2022-11-21 13:30] VITALS: BP 131/82; PULSE 109; RESP 18; TEMP 37.2; O2SAT 98
--- NOTE | 2022-11-21 13:54 | W.ED.GENAD ---
Discharge Plan Disposition Patient Disposition: Home Condition: Stable Discharge Details Clinical Impression: MCL sprain of left knee Primary Care Provider: Meghana Murphy ED Provider: Michelle Orozco Home Meds and New Rx's Prescriptions: New tramadol 50 mg tablet 50 mg PO BID PRN (Reason: pain) Qty: 7 0RF Rx Instructions: Take one tablet twice daily as needed for pain. No Action cetirizine 10 mg tablet 10 mg PO DAILY PRN Ozempic 0.25 mg or 0.5 mg (2 mg/3 mL) pen injector 0.5 mg subcut QWEEK metformin 1,000 mg tablet 1,000 mg PO BID lisinopril 5 mg tablet 5 mg PO DAILY gemfibrozil 600 MG tablet 600 mg PO BID Xarelto 10 mg Tablet 10 mg PO DAILY Discharge Instructions Instructions: Knee Sprain (ED) Additional Instructions: X-Rays are within normal limits, I am concerned about a possible ACL or MCL tear. I did speak with Dr. Arriaga who is research nurse practitioner for orthopedics at this time. He was able to view your XRays. They will call you for an appointment and most likely order a outpatient MRI. Wear the knee brace as needed for comfort, advance range of motion and toe touch weight bearing as tolerated. Rest, Ice, Compression, elevation. Take the Tramadol as needed for moderate to severe pain, do not drive or operate heavy machinery while taking this medication. Please take Tylenol or Ibuprofen with food every 4-6 hours as needed for pain and swelling. Stand Alone Forms: Work Release Referrals: Jimmy Arriaga MD [ [facility] STAFF PHYSICIAN] - 1 week Medical Decision Making 52-year-old male presents to the ER with left knee pain after standing in an embankment when the edge gave way. He reports an inversion type injury of his left knee. He reports that it feels like it is going to give out upon standing, reports increased pain with weight bearing. He does have some swelling noted to the medial joint line and tenderness with palpation. Positive anterior drawer test. Does have distal dorsal pedal pulses palpable. Distal extremity is pink warm dry no obvious deformity noted denies any hip pain neck pain or back pain or any other associated symptoms. Denies hitting his head or losing consciousness. XR knee ordered, Percocet. Spoke with Dr. Arriaga who was able to view the images, I did discuss my physical findings with him, He recommends knee brace, crutches and outpatient follow up. Instructed pateint on home care and follow up instructions, he verbalized understanding. Given a work release. This text was generated using [employer]oneero[employer] system, please disregard any oddities of phrase or misspellings. HPI General Mode of arrival: wheelchair. Date/Time Provider Initiated Documentation: 11/21/22 13:47. Limitations to Documentation: no limitations. Information obtained by: patient, RN notes reviewed and old records reviewed. HPI Narrative: 52-year-old male presents to the ER with left knee pain after standing in an embankment when the edge gave way. He reports an inversion type injury of his left knee. He reports that it feels like it is going to give out upon standing, reports increased pain with weight bearing. He does have some swelling noted to the medial joint line and tenderness with palpation. Positive anterior drawer test. Does have distal dorsal pedal pulses palpable. Distal extremity is pink warm dry no obvious deformity noted denies any hip pain neck pain or back pain or any other associated symptoms. Denies hitting his head or losing consciousness. Related Data Home Medications Medication Instructions Recorded Confirmed gemfibrozil 600 mg tablet 600 mg PO BID 06/25/15 11/21/22 rivaroxaban 10 mg tablet (Xarelto) 10 mg PO DAILY 01/07/19 11/21/22 lisinopril 5 mg tablet 5 mg PO DAILY 10/09/21 11/21/22 cetirizine 10 mg tablet 10 mg PO DAILY PRN 02/12/22 11/21/22 metformin 1,000 mg tablet 1,000 mg PO BID 06/19/22 11/21/22 semaglutide 0.25 mg or 0.5 mg (2 0.5 mg subcut QWEEK 06/19/22 11/21/22 mg/3 mL) subcutaneous pen injector (Ozempic) tramadol 50 mg tablet 50 mg PO BID PRN pain #7 tabs 11/21/22 Previous Rx's Medication Instructions Recorded tramadol 50 mg tablet 50 mg PO BID PRN pain #7 tabs 11/21/22 Allergies Allergy/AdvReac Type Severity Reaction Status Date / Time Penicillins AdvReac Mild Diarrhea Unverified 11/21/22 13:32 General Stated Complaint: Orthopedic MONICA: 3 Review of Systems All systems reviewed & are unremarkable except as noted in HPI and below ENT Ears, Nose, Mouth, and Throat: Denies neck pain Musculoskeletal Musculoskeletal: Reports as per HPI, Reports abnormal gait, Denies back pain, Reports arthralgias, Reports joint swelling, Denies neck pain and Denies numbness Neurologic Neurologic: Reports abnormal gait and Denies numbness PFSH All Active Problems (Updated 11/21/22 @ 14:46 by Michelle Orozco NP) Traumatic rupture of left distal biceps tendon (Acute 10/06/21) Injury of peripheral nerve of left upper extremity (Acute) Calcific tendonitis of left shoulder (Acute) Extensor tenosynovitis of wrist (Acute) Injury of left radial nerve (Acute) MCL sprain of left knee (Acute) Medical History Amplified musculoskeletal pain, localized DVT (deep venous thrombosis) Factor V Leiden Hx of hyperlipidemia Surgical History History of appendectomy History of eye surgery Social History Smoking/Tobacco Use Status: Current every day Tobacco Type: e-cigarettes Smoking risk assessment performed?: Yes Alcohol Intake: current Alcohol Intake frequency: holidays/special occasions only Drug use: Never Substance use type: does not use Housing: house Current gender identity: male Do you feel safe at home: Yes Do you feel safe in your relationship?: Yes Exam Const General: cooperative, healthy appearing, well developed and well groomed Nutritional Appearance: average body habitus Orientation: alert, awake and oriented x3 Back/Spine/Pelvis Cervical Spine: normal cervical lordosis Thoracic/Lumbar Spine: thoracic and lumbar spine normal to inspection Pelvis: no pain with anterior-posterior compression Extrem Left lower extremity: knee Details: tenderness Location: of the medial joint line, swelling (medial joint line) and knee ligament exam abnormal Details: anterior drawer test Details: laxity noted and lower leg Details: normal to inspection Knee images: 1. Tenderness and swelling Course Vital Signs Vital signs: Vital Signs Temperature 37.2 C 11/21/22 13:30 Pulse 109 H 11/21/22 13:30 Respiratory Rate 18 11/21/22 13:30 Blood Pressure 131/82 11/21/22 13:30 Pulse Oximetry 98 11/21/22 13:30 Temperature 37.2 C 11/21/22 13:30 Temperature Source Skin 11/21/22 13:30 Pulse 109 H 11/21/22 13:30 Respiratory Rate 18 11/21/22 13:30 Respiratory Effort Normal, Non-Labored 11/21/22 13:36 Blood Pressure 131/82 11/21/22 13:30 Blood Pressure Position Sitting 11/21/22 13:30 Pulse Oximetry 98 11/21/22 13:30 Oxygen Delivery Method Room Air 11/21/22 13:30 Oxygen Flow Rate 0 11/21/22 13:30 Pain Level 9 11/21/22 13:30
--- NOTE | 2022-11-21 14:24 | DI.RAD_ITS ---
Exam(s) XR KNEE LT 3V AP,LAT,LUIS EXAM: XR KNEE LT 3V AP,LAT,LUIS CLINICAL HISTORY: Injury, Medial joint pain. TECHNIQUE: 2D digital imaging was performed. COMPARISON: No exams were available for comparison FINDINGS: 3 views No evidence of acute fracture although there does appear to be a small joint effusion. No joint spac e narrowing. No degenerative changes. Bone density normal. No osseous lesions. IMPRESSION: No acute osseous findings in the knee. Small joint effusion. DATA REPOSITORY: RADIATION DOSE DELIVERED:
[2022-11-21] MEDS: oxyCODONE 5 mg/Acetaminophen 325 mg TAB 1 TAB PO (14:29)
== END 2022-11-21 15:01 | disposition home or self-care (01) ==
PROVIDERS: Emergency Provider Registered Nurse Emergency; PCP Nurse Practitioner Family
DX: S83.412A Sprain of medial collateral ligament of left knee, initial encounter; W19.XXXA Unspecified fall, initial encounter
CPT/HCPCS: 29505; 73562; 99283; 99284

== ENCOUNTER → 2022-12-09 01:47 | Outpatient (CLI) | payer OTHER, SELFPAY ==
--- NOTE | 2022-12-09 | DI.MRI_ITS ---
Exam(s) MR LOWER JOINT LT WO EXAM: MR LOWER JOINT LT WO CLINICAL HISTORY: LT ANTERIOR CRUCIATE INSTABILITY, M23.8X9. TECHNIQUE: Multiplanar multisequence MRI was performed. COMPARISON: CR XR KNEE LT 3V AP,LAT,LUIS from 11/21/2022 FINDINGS: BONES: There is edema seen in the medial femoral condyle. No fractures identified. JOINTS: Articular cartilage is unremarkable. There is a joint effusion present. TENDONS: Extensor mechanism: Unremarkable. Medial retinaculum: Unremarkable. Lateral retinaculum: Unremarkable. Popliteus: Unremarkable. MUSCLES: There is mild edema seen in the vastus lateralis. MENISCI: The medial meniscus is unremarkable. The lateral meniscus is unremarkable. SOFT TISSUES: There is edema seen in the soft tissues laterally. LIGAMENTS: Anterior Cruciate: Unremarkable. Posterior Cruciate: Unremarkable. Medial Collateral:There is a partial tear of the medial collateral ligament at from its attachment si te onto the medial femoral condyle. Lateral Collateral: Unremarkable. OTHER: IMPRESSION: 1. MCL tear. 2. Medial femoral condylar contusion. 3. Joint effusion. 4. No evidence of a meniscal tear. DATA REPOSITORY:
== END ==
PROVIDERS: PCP Nurse Practitioner Family; Visit Provider Family Medicine
DX: M23.8X2 Other internal derangements of left knee (principal)
CPT/HCPCS: 73721

== ENCOUNTER 2023-02-07 06:17 | Day surgery (SDC) | payer MEDICAID, SELFPAY ==
[2023-02-07] VITALS (13 sets, daily range): BP systolic 107–136; BP diastolic 73–99; PULSE 70–95; RESP 15–20; TEMP 36.2–36.8; O2SAT 92–98; BMI 31.1
[2023-02-07] MEDS: Lactated Ringers 1,000 ML 30 ML IV (07:00)
--- NOTE | 2023-02-07 07:01 | W.ANESPRE ---
General Info Date of Service Date Performed: 02/07/23 Height: 5 ft 8 in Weight: 92.9 kg Body Mass Index (BMI): 31.1 Surgical Procedure: Operation Date: 02/07/23 07:40 Proposed Procedure Side Surgeon p Knee Manipulation of Knee Left Jimmy Arriaga MD Meds Allergies and Home Medications Allergies Allergy/AdvReac Type Severity Reaction Status Date / Time Penicillins AdvReac Mild Diarrhea Unverified 02/07/23 06:25 Home Medication Medication Instructions Recorded gemfibrozil 600 mg tablet 600 mg PO BID 06/25/15 rivaroxaban 10 mg tablet (Xarelto) 10 mg PO DAILY 01/07/19 lisinopril 5 mg tablet 5 mg PO DAILY 10/09/21 cetirizine 10 mg tablet 10 mg PO DAILY PRN 02/12/22 metformin 1,000 mg tablet 1,000 mg PO BID 06/19/22 semaglutide 0.25 mg or 0.5 mg (2 0.5 mg subcut QWEEK 06/19/22 mg/3 mL) subcutaneous pen injector (Ozempic) oxycodone 5 mg tablet 5 - 10 mg (1 - 2 x 5 mg) PO .q4-6h 02/07/23 PRN severe pain #18 tabs Current Visit Medications: Current Medications Generic Name Dose Route Start Last Admin Trade Name Freq PRN Reason Stop Dose Admin Ringer's Solution 1,000 mls @ 30 mls/hr 02/07/23 06:00 IV 03/08/23 23:59 INFUSION JARRETT IV Miscellaneous Supplies 1 each 02/07/23 06:00 Iv Access IV 03/08/23 23:59 DIRECTED JARRETT Sodium Chloride 0 ml 02/07/23 06:00 Normal Saline Flush 10 Ml Syr IV 03/08/23 23:59 PRN PRN Sodium Chloride 0 ml 02/07/23 06:00 Normal Saline 10 Ml Vial IJ 03/08/23 23:59 DIRECTED PRN Sterile Water 0 ml 02/07/23 06:00 Water,Injection,Sterile 10 Ml Vial IJ 03/08/23 23:59 DIRECTED PRN PFSH Active Problems Active Problems: Problem Status Onset Code Stiffness of left knee M25.662 Traumatic tear of medial collateral ligament of knee ~11/22/22 S83.419A Medical History Medical History Injury of left radial nerve Extensor tenosynovitis of wrist Calcific tendonitis of left shoulder Injury of peripheral nerve of left upper extremity Traumatic rupture of left distal biceps tendon (10/06/21) Amplified musculoskeletal pain, localized Factor V Leiden DVT (deep venous thrombosis) Hx of hyperlipidemia Medical History Comments:: Pt. will have been off Ozempic 13 days NOT rec. 14 days-reviewed and ok'd to proceed per JJ and DK Surgical History Surgical History History of eye surgery History of appendectomy Tobacco Smoking/Tobacco Use Status: Former Tobacco Use Alcohol Alcohol Intake: current Alcohol intake frequency: holidays/special occasions only Substance Use Substance use: Never Substance use type: does not use Vital Signs and Lab Results Vital Signs Most Recent Vital Signs in EMR: Most Recent Vital Signs Temp Pulse Resp BP Pulse Ox 36.8 C 85 16 130/81 97 02/07/23 06:26 02/07/23 06:26 02/07/23 06:26 02/07/23 06:26 02/07/23 06:26 Lab Results Blood Type / Crossmatch: No Data to Display Complete Blood Count: No Data to Display Complete Metabolic Panel: Hemoglobin A1c 5.9 % (4.5-5.7) H 01/29/23 15:19 Liver Function Panel: No Data to Display Coagulation Panel: No Data to Display Cardiac Panel: No Data to Display Arterial Blood Gas: No Data to Display Venous Blood Gas: No Data to Display Pancreas Panel: No Data to Display Thyroid Panel: No Data to Display Infectious Disease: No Data to Display Blood Cultures: No Data to Display Toxicology Panel: No Data to Display Imaging and Studies Imaging and Studies Study information below may be from another EMR and interpreted by another provider. Please see original notes in EMR for more complete details. Pulmonary Function Summary: Impression Normal pulmonary function test Clinical Correlation therefore is recommended. 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 Anesthesia Assessment and Plan Anesthesia History Personal History: No History of Anesthesia Complications Family History: No Family History of Anesthesia Complications Exercise Tolerance Exercise Tolerance: Metabolic Equivalents>4 Pertinent Negatives Pertinent Negatives: No Symptoms of GERD Cardiac & Pulmonary Exam Cardiac Exam: Normal S1/S2 Heart Sounds Pulmonary Exam: Clear Bilateral Breath Sounds Implantable Cardiac Device Does patient have a Pacemaker or an ICD?: No Airway Exam Known Difficult Airway: No Mallampati Class: 2 Mouth Opening: Normal (> 3cm) Thyromental Distance: Greater than 3 cm Neck Range of Motion: Full ROM Neck Circumference: Normal Teeth Condition: Generalized Poor Dentition and Loose or Chipped ASA Classification ASA Score: ASA 2 Emergency Case?: No NPO Status NPO Status: NPO Clears >2 hours, Solids >8 hours Anesthesia Plan Resuscitation Status: Full Code Anesthesia Technique: General Anesthesia Airway Planned: Natural Airway Pain Management: Surgeon and patient request nerve block Monitors Used: Standard Monitors
--- NOTE | 2023-02-07 07:17 | W.PM.DSUDISC ---
Date of service: 02/07/23 Time of Service: 08:00 Discharge Plan Disposition Patient Disposition: Home Condition: Stable Discharge Details Attending Provider: Jimmy Arriaga Primary Care Provider: Meghana Murphy Home Meds and New Rx's Prescriptions: New oxycodone 5 mg tablet 5 - 10 mg PO .q4-6h PRN (Reason: severe pain) Qty: 18 0RF Continued cetirizine 10 mg tablet 10 mg PO DAILY PRN Ozempic 0.25 mg or 0.5 mg (2 mg/3 mL) pen injector 0.5 mg subcut QWEEK metformin 1,000 mg tablet 1,000 mg PO BID lisinopril 5 mg tablet 5 mg PO DAILY gemfibrozil 600 MG tablet 600 mg PO BID Xarelto 10 mg Tablet 10 mg PO DAILY Discharge Instructions Additional Instructions: Surgery: Left knee manipulation under anesthesia; Proximal moderately high grade proximal MCL tear on 11/21/22 Activity: Encourage increasing range of motion. Perform daily active and passive knee range of motion exercises. Resume physical therapy on Friday. Prescriptions: Oxycodone 5 mg take 1-2 every 4-6 hours as needed for severe pain You may use [id number] Tylenol (acetaminophen) as needed for mild to moderate pain. These pain medications may be taken at the same time if needed. Dressings: None Follow-up: 10-[address] Arriaga You may take off the leg compression stockings this evening at home. You may also leave them on a few days longer if you have a history of leg swelling or edema. Let us know right away if you develop any redness, drainage, fevers, chest pain, or trouble breathing. Do not drink alcohol or drive for at least 24 hours after anesthesia. Please call the office during business hours with any questions or concerns. Discharge Orders Discharge Orders: Discharge Order (Routine); Ordered 02/07/23 Ordered By: Mable Taylor DS: Diagnosis Discharge Diagnosis (1) Stiffness of left knee: Status: Acute (2) Traumatic tear of medial collateral ligament of knee: Status: Acute
--- NOTE | 2023-02-07 07:27 | ROE_ITS ---
Date of service: 02/07/23 Time of Service: 07:30 Operative Note Operative Note DATE OF PROCEDURE: 02/07/23 PRE-OP DIAGNOSIS: Left knee stiffness after MCL tear PROCEDURE: Left knee manipulation under anesthesia, CPT #59440 SURGEON: Jimmy Arriaga ANESTHESIA TYPE: General LMA/ETT and Primary Nerve Block Refer to Anesthesia Record ESTIMATED BLOOD LOSS: 0 COMPLICATIONS: None Patient was transported to: same day Patient's condition: stable Indications: Please see complete medical record for details. Findings: Excellent release of adhesions, moderate Procedure Description: In the operating room, general anesthesia was induced. The patient was positioned supine on the stretcher. Preoperative antibiotics were omitted. The correct patient, procedure, and side of the procedure were all verified prior to beginning. The Left knee was examined with range of motion about 5-95 degrees, soft endp oint. Using a short fulcrum, gentle steady and alternating pressure between flexion and extension there was excellent palpable release of suprapatellar adhesions. Knee motion was nearly full. Additional gentle steady flexion was used to achieve full flexion with mild additional release of that adhesions. No medial or MCL pop or snap was appreciated. Range of motion was tested and full and equal to the contralateral side without any spurring back into extension lag or resistance to deep flexion. The MCL was tested to valgus stress in full extension and mild flexion with solid stability in extension, but mild increased laxity of a few millimeters medial joint space opening in mild flexion compared to contralateral side, consistent with the post MCL injury tear state, but solid endpoint. While the patient remained under anesthesia, flexion and extension endpoints were stretched and repeated numerous times. Peripatellar mobility was confirmed as well. Valgus MCL increased laxity in mild flexion remained only about 3-5 mm. Will reassess stability after completing knee rehabilitation, but no immediate plans for MCL repair or reconstruction. The patient awoke from anesthesia without complication and was transferred to the recovery room in a stable condition.
--- NOTE | 2023-02-07 07:59 | W.ANESNERVE ---
Nerve Block Single Injection Procedure Date and Time Date Performed: 02/07/23 Procedure Start: 07:22 Location Where Procedure Performed Procedure Location: Day Surgery Unit Reason Performed: Postoperative Analgesia Requesting Provider: Jimmy Arriaga Timeout Performed Timeout Performed: Yes Monitoring Used ECG, Blood Pressure and SpO2 Sterility Sterility: Hand Hygiene, Surgical Cap, Surgical Mask and Sterile Gloves Sedation Given During Procedure Sedation Given (Indicate Dose Given): Versed IV Dose:: 2 mg Patient Mental Status Patient Mental Status: Sedate with meaningful communication Nerve Block 1st Nerve Block: Laterality: Left Block Type: Adductor Canal Ultrasound Image Saved?: Yes Needle / Catheter Used: 100mm SonoPlex II Local Anesthetic Bolus (Indicate Dose Given): Lidocaine used for local infiltration of skin, Injected in 3-5ml increments after negative blood aspiration and Bupivacaine 0.25% Dose:: 20 ml Additives (Indicate Dose Given): None Ultrasound: Sterile probe cover and gel used Nerve Stimulator: Not Used Paresthesia: None Procedure Tolerated: No Complications and Patient tolerated well Procedure Outcome: Successful Performed By: Carlton Hendricks
[2023-02-07] MEDS: fentaNYL 100 MCG/2 ML VIAL IVP (08:00)
[2023-02-07] MEDS: Ketorolac 15 MG/ML VIAL IVP (08:03)
[2023-02-07] MEDS: ACETAMINOPHEN 1,000 MG/100 ML BTL 400 MG IVPB (08:14)
--- NOTE | 2023-02-07 08:35 | W.ANESPOSTOP ---
Postoperative Evaluation Date, Time and Location Date Performed: 02/07/23 Time Performed: 08:21 Patient Location: PACU Vital Signs Most Recent Imported Vital Signs: Most Recent Vital Signs Temp Pulse Resp BP Pulse Ox 36.7 C 76 15 125/95 H 97 02/07/23 08:21 02/07/23 08:21 02/07/23 08:21 02/07/23 08:21 02/07/23 08:21 Pain Score Most Recent Pain Score: Most Recent Pain Score Pain Level 5 02/07/23 08:21 Assessment Mental Status: Awake (Alert & Oriented to Patient Baseline) Airway and Respiratory Function: Patent airway with normal (patient baseline) respiratory exam Cardiovascular Function: Hemodynamically Stable Hydration Status: Adequately Hydrated Nausea & Vomiting: No Nausea or Vomiting Pain: Pain is tolerable per patient Peripheral Nerve Block: Regional nerve block not resolved at time of post operative discharge
== END 2023-02-07 09:30 | disposition home or self-care (01) ==
PROVIDERS: PCP Nurse Practitioner Family; Visit Provider Student in an Organized Health Care Education/Training Program
PROC: (CPT 27570; principal; 2023-02-07 07:30)
DX: M25.662 Stiffness of left knee, not elsewhere classified (principal); S83.412A Sprain of medial collateral ligament of left knee, initial encounter; X58.XXXA Exposure to other specified factors, initial encounter
CPT/HCPCS: 27570; 76942; J0131; J1885; J2250; J3010

== ENCOUNTER 2023-04-18 22:53 | Inpatient (IN) | payer MEDICAID, SELFPAY ==
[2023-04-18 22:57] VITALS: BP 117/76; PULSE 18; RESP 18; TEMP 36.4; O2SAT 98
[2023-04-19] VITALS (8 sets, daily range): BP systolic 92–110; BP diastolic 62–76; PULSE 53–78; RESP 15–18; TEMP 35.9–36.7; O2SAT 95–98
--- NOTE | 2023-04-19 | DI.CT_ITS ---
Exam(s) CT ABDOMEN PELVIS W EXAM: CT ABDOMEN PELVIS W CLINICAL HISTORY: RLQ RUQ pain TTP, vomiting. TECHNIQUE: Imaging Protocol: Axial computed tomography images with coronal and sagittal reformatted images were created and reviewed CONTRAST MATERIAL: Intravenous: Omnipaque-350 100cc Oral: None COMPARISON: CT ABD PELVIS WITH CONTRAST from 10/24/2016 FINDINGS: VISUALIZED LUNG BASES: No nodules nor pleural effusions evident. ABDOMEN: There is no ascites. LIVER: Liver is again noted be hypodense implying steatosis. There is a solitary small hypodensity t owards the inferior aspect of the right hepatic lobe measuring 4 mm. Probably a small benign cyst. No other focal hepatic lesions. GALLBLADDER/BILIARY: Multiple gallstones are again noted. The gallbladder is distended and edematous , findings consistent with acute cholecystitis. There are no calculi seen within the CBD and the CBD diameter is normal. PANCREAS: No evidence of pancreatitis nor dilatation of the pancreatic duct. No pancreatic lesions i dentified. No pancreatic calcifications. SPLEEN: Spleen is not enlarged. No obvious intrasplenic lesions. Splenic and portal veins are paten t. ADRENALS: There are no significant adrenal masses. KIDNEYS:No cysts evident. No solid renal masses. No calculi nor hydronephrosis.. ABDOMINAL AORTA: There is moderate atherosclerotic involvement of the abdominal aorta and common chema c arteries. No significant aneurysms. No critical stenosis evident. LYMPH NODES:There is no retroperitoneal nor paraaortic adenopathy. ABDOMINAL WALL: No evidence of significant anterior abdominal wall nor inguinal hernia. GI: There is no evidence of bowel obstruction, free air, nor abscess. PELVIS: GI: Appendix is not seen and may be surgically absent.There are sigmoid diverticuli but no evidence o f obvious acute diverticulitis. LYMPH NODES: There is no intrapelvic nor inguinal adenopathy. REPRODUCTIVE: Prostate size normal. Seminal vesicles unremarkable. URINARY BLADDER: No calculi nor obvious masses evident OSSEOUS: No fractures and no significant osseous lesions. Chronic disc space narrowing L5-S1 level. No listhesis. IMPRESSION: 1. Findings are consistent with cholelithiasis and acute cholecystitis. CBD is not dilated and there are no calculi evident within the nondilated CBD. No evidence of pancreatitis. 2. Hepatic steatosis again noted. There is a small 4 millimeter benign cyst in the right hepatic lob e. RADIATION DOSE DELIVERED: 957.11mGy.cm Total DLP DATA REPOSITORY: All CT scans at this facility are submitted to the National Radiology Data Registry (NRDR) Dose Index Registry (DIR) with the [employer] (A[employer]). RADIATION OPTIMIZATION: All CT scans at this facility use at least one of these dose optimization te chniques: automated exposure control; mA and/or kV adjustment per patient size (includes targeted exa ms where dose is matched to clinical indication); or iterative reconstruction.
--- NOTE | 2023-04-19 | DI.RAD_ITS ---
Exam(s) XR PORTABLE CHEST AP EXAM: XR PORTABLE CHEST AP CLINICAL HISTORY: preop screening. TECHNIQUE: 2D digital imaging was performed. COMPARISON: No exams were available for comparison FINDINGS: Single AP portable view. Heart size is upper normal. The mediastinum is not widened. There is subsegmental platelike atelectasis in both lung bases. No confluent infiltrates. No pleura l effusions. IMPRESSION: Platelike atelectasis. DATA REPOSITORY: RADIATION DOSE DELIVERED:
--- NOTE | 2023-04-19 00:13 | ED.GENADUL_ITS ---
Discharge Plan Disposition Patient Disposition: Admit to [facility] Condition: Serious Discharge Details Chief Complaint: Abd Prob Clinical Impression: Cholecystitis Admit Date/Time: 04/19/23 01:56 Admit Provider: Debby Seaz Attending Provider: Debby Saez Primary Care Provider: Meghana Murphy ED Provider: Niru Bean Discharge Data Discharge Date/Time-TO BE ENTERED AT DEPARTURE: 04/19/23 02:43 HPI General Mode of arrival: ambulatory . Date/Time Provider Initiated Documentation: 04/18/23 23:04 . Limitations to Documentation: no limitations . Information obtained by: patient . HPI Narrative: 52yo M with hx DM, FVL, presnting with right sided abdominal pain since 04/15/23. When symptoms started he also had nasuea and vomiting; has not vomited since the first day but is still nausted. Pain is moderate to sever,e, worsening, located in the RUQ, and worse after eating. No fevers, chills, rash, chest pain, shortness of breath, or other concerns. He is otherwise in his usual state of health. Related Data Home Medications Medication Instructions Recorded Confirmed gemfibrozil 600 mg tablet 600 mg PO BID 06/25/15 04/18/23 rivaroxaban 10 mg tablet (Xarelto) 10 mg PO DAILY 01/07/19 04/18/23 lisinopril 5 mg tablet 5 mg PO DAILY 10/09/21 04/18/23 cetirizine 10 mg tablet 10 mg PO DAILY PRN 02/12/22 04/18/23 metformin 1,000 mg tablet 1,000 mg PO BID 06/19/22 04/18/23 semaglutide 0.25 mg or 0.5 mg (2 0.5 mg subcut QWEEK 06/19/22 04/18/23 mg/3 mL) subcutaneous pen injector (Ozempic) oxycodone 5 mg tablet 5 - 10 mg (1 - 2 x 5 mg) PO .q4-6h 02/07/23 04/18/23 PRN severe pain #18 tabs Previous Rx's Medication Instructions Recorded oxycodone 5 mg tablet 5 - 10 mg (1 - 2 x 5 mg) PO .q4-6h 02/07/23 PRN severe pain #18 tabs Allergies Allergy/AdvReac Type Severity Reaction Status Date / Time Penicillins AdvReac Mild Diarrhea Unverified 04/18/23 23:14 General Stated Complaint: Abd Prob MONICA: 3 Review of Systems Narrative: see HPI Exam Narrative Exam Narrative: General: Alert, well appearing, well nourished, in no acute distress. Head: Normocephalic, atraumatic Neck: Trachea midline, ?Neck supple. ENT: ?MMM.? No oropharygeal lesions or exudate. Cardiac: ?RRR, no murmurs appreciated Resp: No respiratory distress. CTAB. Abd: ?Soft, non-distended, diffusely TTP worst in RUQ. + Muprhy's : ?No suprapubic tenderness. No CVA tenderness. Extremities: ?No deformities.? No peripheral edema. Neurologic: GCS 15. ? Moves all extremities freely against gravity Course Vital Signs Vital signs: Vital Signs Temperature 36.4 C L 04/18/23 22:57 Pulse 18 L 04/18/23 22:57 Respiratory Rate 18 04/18/23 22:57 Blood Pressure 117/76 04/18/23 22:57 Pulse Oximetry 98 04/18/23 22:57 Temperature 36.4 C L 04/18/23 22:57 Temperature Source Temporal Artery Scan 04/18/23 22:57 Pulse 18 L 04/18/23 22:57 Respiratory Rate 18 04/18/23 22:57 Respiratory Effort Normal 04/18/23 23:00 Blood Pressure 117/76 04/18/23 22:57 Pulse Oximetry 98 04/18/23 22:57 Oxygen Delivery Method Room Air 04/18/23 22:57 Oxygen Flow Rate 0 04/18/23 22:57 Pain Level 9 04/18/23 22:57 Medical Decision Making 52yo M prsenting with RUQ, anorexia, and nausea. Vital signs reassuring, right sided abodminal tenderness moreso in RUQ with + holder's. Zofran and morphine for symptoms. Labs reviewed as below, CBC reassuring with no leukoctyosis, CMP with slightly elevated transaminisis with normal bilirubin, CT indpetnenly reviewed, GB wall thickening on my view, discussed with [facility] radiologist and agree with radiology read below concerning for cholycystitis. Clinically not cholangitis. Discussed with Dr. Saez from surgery; plan for cholecystectomy. Accepted to her service. She is unable to log on to the EMR at this time, requests bridging orders be placed including NS @125/hr, zosyn 3.375 q 6hr, insulin sliding scale, NPO, and continuing home medications including eliquis. These orders and admit order were placed at her request. Awaiting transfer to the floor. Imaging Data Radiologic Study: Imaging: CT Scan Radiologist's impression: IMPRESSION: 1. Gallstones, gallbladder distension, minor gallbladder wall thickening and pericholecystic inflammation. Findings concerning for acute calculus cholecystitis. No biliary ductal dilatation. Followup with ultrasound or nuclear medicine HIDA scan is suggested for confirmation and additional evaluation. 2. Fatty liver. Lab Data Lab results reviewed: Yes I reviewed the patient's lab results. Labs: Laboratory Tests Range/Units 04/18/23 04/18/23 04/19/23 00:00 23:11 00:30 WBC (4.4-10.8) 10^3/uL 9.08 RBC (4.36-5.78) 10^6/uL 5.21 Hgb (13.5-17.5) g/dL 15.0 Hct (40.0-50.0) % 43.3 MCV (80-95) fL 83 MCH (27.0-33.0) pg 28.8 MCHC (32.0-36.0) % 34.6 RDW (11.8-14.1) % 12.7 Plt Count (130-400) 10^3/uL 242 MPV (8.0-11.0) fL 12.5 H Immature Gran % 0.3 Neutrophils % 47.2 Lymphocytes % 35.1 Monocytes % 8.8 Eosinophils % 7.7 Basophils % 0.9 Nucleated RBC % (0.0-0.3) % 0.0 Absolute Neutrophils (1.2-6.7) 10^3/uL 4.28 Absolute Lymphocytes (1.2-3.4) 10^3/uL 3.19 Absolute Monocytes (0.1-0.8) 10^3/uL 0.80 Absolute Eosinophils (0.0-0.7) 10^3/uL 0.70 Absolute Basophils (0.0-0.2) 10^3/uL 0.08 PT (9.1-11.1) sec 10.6 INR (0.9-1.1) 1.1 APTT (23.6-32.8) sec 29.2 Sodium (136-145) mmol/L 141 Potassium (3.5-5.1) mmol/L 3.7 Chloride (98-107) mmol/L 104 Carbon Dioxide (21.0-32.0) mmol/L 24.8 Anion Gap (3-11) mmol/L 12.2 H BUN (7-18) mg/dL 17 Creatinine (0.70-1.30) mg/dL 0.9 Est GFR (CKD-EPI 2020) (mL/min/1.73m2) 104.05 Glucose (74-106) mg/dL 176 H Calcium (8.5-10.1) mg/dL 9.0 Total Bilirubin (0.2-1.0) mg/dL 0.5 AST (15-37) U/L 38 H ALT (16-63) U/L 75 H Alkaline Phosphatase (46-116) U/L 76 Total Protein (6.4-8.2) g/dL 7.8 Albumin (3.4-5.0) g/dL 3.9 Lipase (16-77) U/L 30 Acetaminophen (10-30) ug/mL < 2 Quality:SDOH Health Related Social Needs: No Data to Display PFSH All Active Problems (Updated 04/19/23 @ 05:30 by Niru Bean MD) Cholecystitis (Acute) Stiffness of left knee (Acute) Traumatic tear of medial collateral ligament of knee (Acute ~11/22/22) Medical History (Updated 04/19/23 @ 05:30 by Niru Bean MD) Injury of left radial nerve Extensor tenosynovitis of wrist Calcific tendonitis of left shoulder Injury of peripheral nerve of left upper extremity Traumatic rupture of left distal biceps tendon (10/06/21) Amplified musculoskeletal pain, localized Factor V Leiden DVT (deep venous thrombosis) Hx of hyperlipidemia Surgical History History of eye surgery History of appendectomy Social History Smoking/Tobacco Use Status: Former Tobacco Use Quit Date: 01/24/23 Smoking risk assessment performed?: Yes Alcohol Intake: current Alcohol Intake frequency: holidays/special occasions only Drug use: Never Substance use type: does not use Housing: house Current gender identity: male Do you feel safe at home: Yes Do you feel safe in your relationship?: Yes
[2023-04-19 00:23] LABS: Abs Immature Grans 0.03 10^3/uL (0.0-0.06); Absolute Basophil Count 0.08 10^3/uL (0.0-0.2); Absolute Lymphocyte Count 3.19 10^3/uL (1.2-3.4); Absolute Neutrophil Count 4.28 10^3/uL (1.2-6.7); Basophils % 0.9; Eosinophils % 7.7; HCT 43.3 % (40.0-50.0); Immature Grans % 0.3; Lymphocytes % 35.1; MCH 28.8 pg (27.0-33.0); MCHC 34.6 % (32.0-36.0); MCV 83 fL (80-95); MPV 12.5 fL (8.0-11.0); Monocytes % 8.8; Neutrophils % 47.2; Platelet Count 242 10^3/uL (130-400); RBC 5.21 10^6/uL (4.36-5.78); RDW 12.7 % (11.8-14.1); RDW-SD 38.3 fL; WBC 9.08 10^3/uL (4.4-10.8)
[2023-04-19] MEDS: Ondansetron 4 MG/2 ML VIAL IVP (00:23)
[2023-04-19] MEDS: Ketorolac 15 MG/ML VIAL IVP (00:25)
[2023-04-19] MEDS: MORPHine 4 MG/ML SYR IVP ×3 (00:27→17:03)
[2023-04-19 00:43] LABS: ALT 75 U/L (16-63); AST 38 U/L (15-37); Albumin 3.9 g/dL (3.4-5.0); Alkaline Phosphatase 76 U/L (46-116); Anion Gap 12.2 mmol/L (3-11); BUN 17 mg/dL (7-18); Bilirubin, Total 0.5 mg/dL (0.2-1.0); CO2 24.8 mmol/L (21.0-32.0); CREATININE 0.9 mg/dL (0.70-1.30); Chloride 104 mmol/L (98-107); Estimated GFR 104.05 (mL/min/1.73m2); Glucose 176 mg/dL (74-106); Lipase 30 U/L (16-77); Potassium 3.7 mmol/L (3.5-5.1); Sodium 141 mmol/L (136-145); Total Protein 7.8 g/dL (6.4-8.2)
[2023-04-19 00:49] LABS: INR 1.1 (0.9-1.1); PTT Activated 29.2 sec (23.6-32.8); Prothrombin Time 10.6 sec (9.1-11.1)
[2023-04-19 00:50] LABS: Acetaminophen < 2 ug/mL (10-30)
[2023-04-19] MEDS: Omnipaque 350 MG/ML 100 ML BTL IJ (01:02)
[2023-04-19] MEDS: Normal Saline - Diluent 50 ML VIAL IV (01:10)
[2023-04-19] MEDS: Normal Saline Flush 10 ML SYR IVP ×5 (01:11→19:34)
--- NOTE | 2023-04-19 01:21 | DI.VRAD_ITS ---
Addendum created by Dick Cochran MD on 04/19/2023 1:26:01 AM EST: THIS REPORT CONTAINS FINDINGS THAT MAY BE CRITICAL TO PATIENT CARE. The findings were verbally communicated via telephone conference with RUDDY JHAVERI at 1:25 AM EST on 04/19/2023. The findings were acknowledged and understood. Discussion regarding what appears to be an acute calculus cholecystitis. Recommendation for surgical consultation. Initial report created on 04/19/2023 1:21:21 AM EST: PROCEDURE INFORMATION: Exam: CT Abdomen And Pelvis With Contrast Exam date and time: 04/19/2023 12:42 AM Age: 52 years old Clinical indication: Vomiting; Abdominal pain; Other: Rlq \T\ ruq pain; Additional info: Rlq \T\ ruq pain \T\ ttp, vomiting TECHNIQUE: Imaging protocol: Computed tomography of the abdomen and pelvis with contrast. Contrast material: OMNI 350; Contrast volume: 100 ml; Contrast route: INTRAVENOUS (IV); COMPARISON: CT ABD PELVIS WITH CONTRAST 10/24/2016 8:49 AM FINDINGS: Lungs: Minor posterior lung base atelectasis. Pleural spaces: No pleural effusion. Heart: Normal heart size. No pericardial effusion. No coronary artery atherosclerotic calcium. Liver: Diffuse moderate to severe fatty liver change. Gallbladder and bile ducts: Gallbladder distension. Multiple gallstones. Gallstone in the region of the gallbladder neck. Minor gallbladder wall thickening suggested at 4 mm. Minor pericholecystic fatty inflammation. These findings are concerning for acute calculus cholecystitis. There is no biliary ductal dilatation. Pancreas: The pancreas is normal in contour and attenuation. Spleen: The spleen is normal in size, contour and attenuation. Adrenal glands: The adrenal glands are normal in size and contour bilaterally. Kidneys and ureters: The kidneys bilaterally are unremarkable. Normal attenutation. No hydronephrosis. No calculi. Stomach and bowel: Gastric morphology is unremarkable. No edema. No gastric outlet obstruction. Small sliding hiatal hernia. No acute change. Small bowel loops are normal in course and caliber. There is no mucosal edema or bowel wall thickening. No obstructive features. Large bowel is normal in course and caliber. There is diverticulosis without acute diverticulitis. Appendix: No evidence of appendicitis. Intraperitoneal space: No free fluid in the abdomen or pelvis. No free air. Vasculature: Unremarkable. No abdominal aortic aneurysm. Lymph nodes: Unremarkable. No enlarged lymph nodes. Urinary bladder: Urinary bladder is unremarkable in appearance. No wall thickening. No intravesicular calculi. No intravesicular gas. Reproductive: Unremarkable as visualized. Bones/joints: Degenerative lumbar spine with severe disc space degenerative narrowing at L5-S1. No acute fracture. Soft tissues: Unremarkable. IMPRESSION: 1. Gallstones, gallbladder distension, minor gallbladder wall thickening and pericholecystic inflammation. Findings concerning for acute calculus cholecystitis. No biliary ductal dilatation. Follow-up with ultrasound or nuclear medicine HIDA scan is suggested for confirmation and additional evaluation. 2. Fatty liver. Dictated and Authenticated by: Dick Cochran MD. Ordering:IRENE Marrufo MD
[2023-04-19] MEDS: PIPERACILLIN/TAZO 3.375 GM in Normal Saline 50 ML IVPB ×4 (02:12→19:34)
--- NOTE | 2023-04-19 02:17 | NUR.NOTE ---
Prior to administration of Zosyn PTs allergies were discussed with ED MD. PTs adverse reaction to PCNs is GI upset. ED MD is OK with administration. Nursing Note:
[2023-04-19] MEDS: Normal Saline 1,000 ML 125 ML IV ×2 (03:09→20:30)
[2023-04-19] MEDS: Lisinopril 5 MG TAB PO (08:20)
[2023-04-19] MEDS: Gemfibrozil 600 MG TAB PO ×2 (08:20→19:34)
[2023-04-19] MEDS: Cetirizine 10 MG TAB PO (08:20)
[2023-04-19] MEDS: Rivaroxaban 10 MG TABLET PO (08:21)
--- NOTE | 2023-04-19 10:53 | INITIAL_ITS ---
Date of service: 04/19/23 Time of Service: 10:53 Care Management Initial Assmt Initial Assessment REASON FOR HOSPITALIZATION:: Cholecystitis PREVIOUS FUNCTIONAL STATUS/SOCIAL/FAMILY SUPPORTS:: Resides in [facility] with significant other, Maria Ines. Independent at baseline in the community. CURRENT FUNCTIONAL STATUS:: Admitted to floor to await surgical intervention. Ruddy verbalizes wanting to return home as soon as possible. CM following. ADVANCE DIRECTIVES:: None on file. Has patient been provided with info about the portal/API?: Yes Did the patient sign up for the portal?: Yes CODE STATUS:: Full Code INSURANCE COVERAGE / FINANCIAL ISSUES:: Medicaid CURRENT HOME/COMMUNITY SERVICES/EQUIPMENT:: None, currently. PRIMARY CARE PHYSICIAN:: Meghana Murphy POTENTIAL DISCHARGE NEEDS:: Follow up appointments, surgical intervention. PATIENT/FAMILY EDUCATION NEEDS:: Review discharge instructions, discuss Ask Me Three. ANTICIPATED BARRIERS TO DISCHARGE:: None identified. TRANSPORTATION:: Via private vehicle with family. PLAN:: Ruddy is admitting to [facility] to await surgical intervention, surgeon consulted hospitalist as well. Anticipate post surgically, Ruddy will return home with no additional services and transport via private vehicle with his girlfriend. PFSH All Active Problems (Updated 04/19/23 @ 14:41 by Naila Gutierrez MD) Non-insulin dependent diabetes mellitus (Acute) Chronic anticoagulation (Acute) Cholecystitis (Acute) Stiffness of left knee (Acute) Traumatic tear of medial collateral ligament of knee (Acute ~11/22/22) Medical History (Updated 04/19/23 @ 14:41 by Naila Gutierrez MD) Injury of left radial nerve Extensor tenosynovitis of wrist Calcific tendonitis of left shoulder Injury of peripheral nerve of left upper extremity Traumatic rupture of left distal biceps tendon (10/06/21) Amplified musculoskeletal pain, localized Factor V Leiden DVT (deep venous thrombosis) Hx of hyperlipidemia Surgical History History of eye surgery History of appendectomy Family History (Updated 04/19/23 @ 14:29 by Naila Gutierrez MD) Maternal Cousin Stroke Diabetes Mother Cancer small cell lung cancer Hypertension Father Cancer renal cell carcinoma Hypertension Maternal Grandfather Cancer lung cancer Paternal Grandfather Cancer lung cancer vs aguilar's lung Maternal Grandmother Diabetes Paternal Grandmother Diabetes Social History Smoking/Tobacco Use Status: Former Tobacco Use Quit Date: 01/24/23 Smoking risk assessment performed?: Yes Alcohol Intake: current Alcohol Intake frequency: holidays/special occasions only Drug use: Never Substance use type: does not use Housing: house Current gender identity: male Do you feel safe at home: Yes Do you feel safe in your relationship?: Yes SDOH(Care Management) Screening Will the Patient Participate in the Screening?: Yes Do you worry about having a steady place to live?: no Problems where you live: no known problems In the past 12 months, have you had to go without electric, gas, oil or water in your home?: no Have you or anyone in your house had to go without enough food to eat?: no Has lack of transportation kept you from medical appointments or from doing things needed for daily living?: no Has anyone in your support network made you feel unsafe for any reason?: no
--- NOTE | 2023-04-19 14:09 | MCONE_ITS ---
Date of service: 04/19/23 Time of Service: 14:09 Assessment and Plan Assessment and plan (1) Cholecystitis: Status: Acute Assessment and plan: Defer to general surgery. Agree with antibiotics. I do feel that the surgery can likely be done at our facility, whether this is done as inpatient or outpatient since the patient has never had a PE, so he is less likely to have pulmonary hypertension, and had been faithful with his anticoagulation until he got sick. Will get a CXR and an EKG for routine preop screening. Prior to surgery, I would hold xarelto x 48 hrs and bridge with therapeutic lovenox (either 90 mg SC Q12 hrs or 140 mg SC Q24 hrs). The last dose of lovenox should be 24 hrs prior to surgery. Resume xarelto as soon as safely possible after surgery (typically, when hemostasis is achieved). (2) Factor V Leiden: Assessment and plan: On xarelto. H/o 2 DVTs RLE, 1 DVT LLE, and 1 DVT RUE, all at least 10 years ago. No hx of PE. Faithful with anticoagulation until he got sick 5 days ago. Read discussion above. He will need bridging of anticoagulation due to being a high thromboembolic risk. (3) Chronic anticoagulation: Status: Acute Assessment and plan: As above (4) Non-insulin dependent diabetes mellitus: Status: Acute Assessment and plan: Agree with SSI. Resume metformin 48 hrs after receiving IV contrast. Thank you for this consult! Please, do not hesitate to contact me or the hospitalist datastage consultant with any questions. 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 His ED workup revealed cholecystitis by CT as well as fatty liver. He did receive xarelto this morning. Hospitalist consultation was requested to evaluate the safety of performing the patient's surgery here as well as for directions on what to do with anticoagulation. The patient is considering going home with outpatient follow up. He had just had a clear liquid lunch tray prior to my interview of him. He continues to have RUQ pain but is feeling better. He is on zosyn. He is familiar with enoxaparin/lovenox shots, though he didn't immediately recognize the name because he used to be on warfarin. The patient does state that he has a chronic cough productive of clear sputum and that, since the pain in the RUQ started, coughing has been painful. Review of Systems Narrative: He endorses a chronic cough productive of clear sputum. Denies fevers, runny nose, sore throat, change to sputum color. All systems reviewed & are unremarkable except as noted in HPI and below PFSH All Active Problems (Updated 04/19/23 @ 14:41 by Naila Gutierrez MD) Non-insulin dependent diabetes mellitus (Acute) Chronic anticoagulation (Acute) Cholecystitis (Acute) Stiffness of left knee (Acute) Traumatic tear of medial collateral ligament of knee (Acute ~11/22/22) Medical History (Updated 04/19/23 @ 14:41 by Naila Gutierrez MD) Injury of left radial nerve Extensor tenosynovitis of wrist Calcific tendonitis of left shoulder Injury of peripheral nerve of left upper extremity Traumatic rupture of left distal biceps tendon (10/06/21) Amplified musculoskeletal pain, localized Factor V Leiden DVT (deep venous thrombosis) Hx of hyperlipidemia Surgical History History of eye surgery History of appendectomy Family History (Updated 04/19/23 @ 14:29 by Naila Gutierrez MD) Maternal Cousin Stroke Diabetes Mother Cancer small cell lung cancer Hypertension Father Cancer renal cell carcinoma Hypertension Maternal Grandfather Cancer lung cancer Paternal Grandfather Cancer lung cancer vs aguilar's lung Maternal Grandmother Diabetes Paternal Grandmother Diabetes Social History Smoking/Tobacco Use Status: Former Tobacco Use Quit Date: 01/24/23 Smoking risk assessment performed?: Yes Alcohol Intake: current Alcohol Intake frequency: holidays/special occasions only Drug use: Never Substance use type: does not use Housing: house Current gender identity: male Do you feel safe at home: Yes Do you feel safe in your relationship?: Yes Exam Narrative Exam Narrative: General: a pleasant middle-aged obese male who is A&Ox3, uncomfortable in bed Neurological: A&Ox3, no focal deficits Psychiatric: Appropriate speech pattern and content Skin: Visible skin intact, including skin on B feet HEENT: Atraumatic, normocephalic, EOMI, MMM, clear oropharynx, no submandibular or cervical lymphadenopathy, no goiter or JVD Cardiovascular: RRR, no m/r/g Lungs: crackles of B bases which resolve with coughing Gastrointestinal: soft, tender in RUQ, rotund Genitourinary: deferred Extremities: no edema BLEs, trace pedal pulses B, no c/c. Results Last Vital Signs Temp 36.6 C 04/19/23 11:09 Pulse 62 04/19/23 11:09 Resp 15 04/19/23 11:09 BP 110/63 04/19/23 11:09 Pulse Ox 98 04/19/23 11:09 Labs 04/18/23 00:00 04/18/23 00:00 Labs: Laboratory Results - last 24 hr 04/18/23 04/18/23 04/19/23 00:00 23:11 00:30 WBC 9.08 RBC 5.21 Hgb 15.0 Hct 43.3 MCV 83 MCH 28.8 MCHC 34.6 RDW 12.7 Plt Count 242 MPV 12.5 H Immature Gran % 0.3 Neutrophils % 47.2 Lymphocytes % 35.1 Monocytes % 8.8 Eosinophils % 7.7 Basophils % 0.9 Nucleated RBC % 0.0 Absolute Neutrophils 4.28 Absolute Lymphocytes 3.19 Absolute Monocytes 0.80 Absolute Eosinophils 0.70 Absolute Basophils 0.08 PT 10.6 INR 1.1 APTT 29.2 Sodium 141 Potassium 3.7 Chloride 104 Carbon Dioxide 24.8 Anion Gap 12.2 H BUN 17 Creatinine 0.9 Est GFR (CKD-EPI 2020) 104.05 Glucose 176 H Calcium 9.0 Total Bilirubin 0.5 AST 38 H ALT 75 H Alkaline Phosphatase 76 Total Protein 7.8 Albumin 3.9 Lipase 30 Acetaminophen < 2 Imaging Imaging Studies: CT abdomen/pelvis: 1. Gallstones, gallbladder distension, minor gallbladder wall thickening and pericholecystic inflammation. Findings concerning for acute calculus cholecystitis. No biliary ductal dilatation. Follow-up with ultrasound or nuclear medicine HIDA scan is suggested for confirmation and additional evaluation. 2. Fatty liver.
--- NOTE | 2023-04-19 14:30 | RT.EKG_ITS ---
APPROVED REPORT Exam: Resting ECG Reason for Exam: preop screening Patient Location: I HR:46 bpm ECG Measurements Heart Rate 46 AXIS CA 156 P 10 QRSd 79 QRS -5 QT 389 T 61 QTc 341 Conclusion Sinus bradycardia...rate< 50 Borderline low voltage, extremity leads...all extremity leads <0.6mV Otherwise normal ECG
--- NOTE | 2023-04-19 15:52 | DI.VRAD_ITS ---
PROCEDURE INFORMATION: Exam: XR Chest Exam date and time: 04/19/2023 3:32 PM Age: 52 years old Clinical indication: Other: Pre op screening TECHNIQUE: Imaging protocol: Radiologic exam of the chest. Views: 1 view. COMPARISON: CT ABDOMEN PELVIS W 04/19/2023 12:42 AM FINDINGS: Lungs: Unremarkable. No consolidation. Pleural spaces: Unremarkable. No pleural effusion. No pneumothorax. Heart/Mediastinum: Unremarkable. No cardiomegaly. Bones/joints: Unremarkable. IMPRESSION: No evidence for acute abnormality in the chest. Dictated and Authenticated by: Claudia Fisher MD. Ordering:TANVIR Yoo MD
--- NOTE | 2023-04-19 15:52 | HPE_ITS ---
Date of service: 04/19/23 Time of Service: 10:30 Assessment and Plan Assessment and plan (1) Cholecystitis: Status: Acute Assessment and plan: The patient stated to me that he is not willing to stay in the hospital for 2 to 3 days for surgery. He stated that he thought he was having surgery today and going home today. He states that he is able to tolerate liquids as an outpatient. I advised the patient that surgery was not advised today as he has already taken Xarelto. We also recommend that he should be bridged with lovenox prior to surgery. Patient was resistant to the idea of staying in the hospital to be bridged prior to surgery. Patient was given the option of tolerating a liquid diet and scheduling elective outpatient surgery if he did not want to stay in the hospital for surgery. Will offer the patient a liquid diet and check in with the patient again. recheck patient. patient agrumentative about waiting 48 hours for surgery. I explained that we are making recommendations out to precaution to avoid complications such as PE and cardiopulmonary arrest. The severity of this complication was explained to the patient multiple times. he was given the choice to be discharged and f/u as an outpatient in the surgery office or stay in the hospital for care. he opted for staying in the hospital. - we will stop xarelto and bridge patient with lovenox - IVF abx -clear liquid diet - pain control - ck US abd. (2) Factor V Leiden: History of Present Illness History of Present Illness Chief Complaint: abdominal pain Consults Consult date: 04/19/23 Requesting physician: Naila Gutierrez Narrative: Patient is a 52-year-old male. He presents emergency department with complaints of right upper quadrant abdominal pain that started 5 days ago. He states that the pain is sharp. Pain is also associated with nausea and vomiting. Patient states that he has been tolerating liquids. He came in last night because the pain was unbearable. In the emergency department the patient had lab work which demonstrated no evidence of leukocytosis. Mildly elevated transaminases with an AST of 38, ALT 75 bilirubin total 0.5. He was hemodynamically stable and afebrile. The patient had a CT scan of the abdomen which was suspicious for acute cholecystitis. He was subsequently admitted for additional care. It is noted that in the patient's history that he has factor V Leiden dating mutation. The patient states that he has history of deep vein thrombosis in both arms and both legs. The patient states that he has not had a blood clot in over 10 years. He is maintained on Xarelto as an outpatient. He has been taking Xarelto for approximately 4 years which is managed by his primary care physician. The patient did have a dose of Xarelto this morning. The patient states that prior to that his last dose of Xarelto was on Friday. On examination the patient did have right upper quadrant tenderness to palpation. The patient was advised that due to his history of factor V Leiden mutation that he is at risk for further DVT and possible PE. The recommendation was made to wait at least 2 days for surgery and to bridge the patient with heparin. This case was also discussed with the medicine team prior to examining the patient. The patient indicated that he did not want to wait in the hospital for 2 days for surgery. Review of Systems All systems reviewed & are unremarkable except as noted in HPI and below PFSH All Active Problems (Updated 04/19/23 @ 14:41 by Naila Gutierrez MD) Non-insulin dependent diabetes mellitus (Acute) Chronic anticoagulation (Acute) Cholecystitis (Acute) Stiffness of left knee (Acute) Traumatic tear of medial collateral ligament of knee (Acute ~11/22/22) Medical History (Updated 04/19/23 @ 14:41 by Naila Gutierrez MD) Injury of left radial nerve Extensor tenosynovitis of wrist Calcific tendonitis of left shoulder Injury of peripheral nerve of left upper extremity Traumatic rupture of left distal biceps tendon (10/06/21) Amplified musculoskeletal pain, localized Factor V Leiden DVT (deep venous thrombosis) Hx of hyperlipidemia Surgical History History of eye surgery History of appendectomy Family History (Updated 04/19/23 @ 14:29 by Naila Gutierrez MD) Maternal Cousin Stroke Diabetes Mother Cancer small cell lung cancer Hypertension Father Cancer renal cell carcinoma Hypertension Maternal Grandfather Cancer lung cancer Paternal Grandfather Cancer lung cancer vs aguilar's lung Maternal Grandmother Diabetes Paternal Grandmother Diabetes Social History Smoking/Tobacco Use Status: Former Tobacco Use Quit Date: 01/24/23 Smoking risk assessment performed?: Yes Alcohol Intake: current Alcohol Intake frequency: holidays/special occasions only Drug use: Never Substance use type: does not use Housing: house Current gender identity: male Do you feel safe at home: Yes Do you feel safe in your relationship?: Yes Meds Allergies and Home Medications Allergies Allergy/AdvReac Type Severity Reaction Status Date / Time Penicillins AdvReac Mild Diarrhea Unverified 04/18/23 23:14 Home Medications Medication Instructions Recorded Confirmed Type gemfibrozil 600 mg tablet 600 mg PO BID 06/25/15 04/18/23 History rivaroxaban 10 mg tablet (Xarelto) 10 mg PO DAILY 01/07/19 04/18/23 History lisinopril 5 mg tablet 5 mg PO DAILY 10/09/21 04/18/23 History cetirizine 10 mg tablet 10 mg PO DAILY PRN 02/12/22 04/18/23 History metformin 1,000 mg tablet 1,000 mg PO BID 06/19/22 04/18/23 History semaglutide 0.25 mg or 0.5 mg (2 0.5 mg subcut QWEEK 06/19/22 04/18/23 History mg/3 mL) subcutaneous pen injector (Ozempic) oxycodone 5 mg tablet 5 - 10 mg (1 - 2 x 5 mg) PO .q4-6h 02/07/23 04/18/23 Rx PRN severe pain #18 tabs Exam Const General: no acute distress, well developed and other (Argumentative and demanding) Nutritional Appearance: average body habitus Orientation: alert, awake and oriented x3 Eyes Sclera: sclerae normal GI Inspection: normal to inspection Auscultation: hypoactive bowel sounds Other: The abdomen was rotund, there was tenderness to palpation in the right upper quadrant of the abdomen. Skin Lesions: no lesions Rashes: no rashes Other: No evidence of jaundice, no ecchymosis Results Labs 04/18/23 00:00 04/18/23 00:00 Labs: Laboratory Results - last 24 hr 04/18/23 04/18/23 04/19/23 00:00 23:11 00:30 WBC 9.08 RBC 5.21 Hgb 15.0 Hct 43.3 MCV 83 MCH 28.8 MCHC 34.6 RDW 12.7 Plt Count 242 MPV 12.5 H Immature Gran % 0.3 Neutrophils % 47.2 Lymphocytes % 35.1 Monocytes % 8.8 Eosinophils % 7.7 Basophils % 0.9 Nucleated RBC % 0.0 Absolute Neutrophils 4.28 Absolute Lymphocytes 3.19 Absolute Monocytes 0.80 Absolute Eosinophils 0.70 Absolute Basophils 0.08 PT 10.6 INR 1.1 APTT 29.2 Sodium 141 Potassium 3.7 Chloride 104 Carbon Dioxide 24.8 Anion Gap 12.2 H BUN 17 Creatinine 0.9 Est GFR (CKD-EPI 2020) 104.05 Glucose 176 H Calcium 9.0 Total Bilirubin 0.5 AST 38 H ALT 75 H Alkaline Phosphatase 76 Total Protein 7.8 Albumin 3.9 Lipase 30 Acetaminophen < 2 Last Vital Signs Temp 97.3 F L 04/19/23 15:30 Pulse 56 L 04/19/23 15:30 Resp 16 04/19/23 15:30 BP 96/65 L 04/19/23 15:30 Pulse Ox 97 04/19/23 15:30 Time Spent Time spent with Patient: >75 minutes Time was spent: preparing to see the patient(eg.review tests), obtaining and/or reviewing separately otained hiistory, ordering medications,tests, procedures, referring, communicating with other health hospice care transitions coordinator, indepentently interpreting results, counseling the patient and care coordination
[2023-04-19] MEDS: Insulin Aspart 300 UNITS/3 ML PEN SC (17:04)
--- NOTE | 2023-04-20 | DI.US_ITS ---
Exam(s) US ABDOMEN LIMITED EXAM: US ABDOMEN LIMITED CLINICAL HISTORY: ruq abdominal pain TECHNIQUE: Ultrasound abdomen performed using standard protocol. COMPARISON: US POCUS EXAM from 02/07/[address] ABDOMEN PELVIS W from 04/19/2023 FINDINGS: There is no ascites evident. LIVER: Hepatic steatosis noted. No concerning hepatic lesions evident. GALLBLADDER/BILIARY: There is cholelithiasis as well as significant gallbladder wall thickening. Pat ient was apparently not tender over this area during scanning today. The common hepatic duct isnot dilated, measuring 4-5mm at the level of divine hepatis. PANCREAS: There is no evidence of pancreatic mass nor dilatation of the pancreatic duct. RIGHT KIDNEY:No evidence of solid mass, calculus, nor hydronephrosis. No cortical cysts evident. IMPRESSION: 1. Cholelithiasis and evidence of acute cholecystitis. These findings are commensurate with what is seen on CT scan of 04/19/2023 2. CBD is not dilated. 3. Hepatic steatosis DATA REPOSITORY:
[2023-04-20] MEDS: PIPERACILLIN/TAZO 3.375 GM in Normal Saline 50 ML IVPB ×4 (02:14→19:36)
[2023-04-20] MEDS: Normal Saline 1,000 ML 125 ML IV ×3 (05:17→21:55)
[2023-04-20 06:29] VITALS: BP 101/66; PULSE 75; RESP 16; TEMP 36.7; O2SAT 96
[2023-04-20 06:52] LABS: Abs Immature Grans 0.02 10^3/uL (0.0-0.06); Absolute Basophil Count 0.07 10^3/uL (0.0-0.2); Absolute Eosinophil Count 0.53 10^3/uL (0.0-0.7); Absolute Lymphocyte Count 2.05 10^3/uL (1.2-3.4); Absolute Neutrophil Count 2.93 10^3/uL (1.2-6.7); Basophils % 1.1; Eosinophils % 8.5; HCT 38.1 % (40.0-50.0); HGB 13.3 g/dL (13.5-17.5); Immature Grans % 0.3; Lymphocytes % 33.1; MCH 29.4 pg (27.0-33.0); MCHC 34.9 % (32.0-36.0); MCV 84 fL (80-95); MPV 12.2 fL (8.0-11.0); Monocytes % 9.7; Neutrophils % 47.3; Platelet Count 217 10^3/uL (130-400); RBC 4.52 10^6/uL (4.36-5.78); RDW 12.9 % (11.8-14.1); RDW-SD 39.4 fL
[2023-04-20 07:10] LABS: ALT 63 U/L (16-63); AST 24 U/L (15-37); Albumin 3.1 g/dL (3.4-5.0); Alkaline Phosphatase 68 U/L (46-116); Anion Gap 8.9 mmol/L (3-11); BUN 12 mg/dL (7-18); Bilirubin, Total 0.7 mg/dL (0.2-1.0); CO2 24.1 mmol/L (21.0-32.0); Calcium 8.1 mg/dL (8.5-10.1); Chloride 107 mmol/L (98-107); Estimated GFR 91.69 (mL/min/1.73m2); Glucose 125 mg/dL (74-106); Potassium 4.1 mmol/L (3.5-5.1); Sodium 140 mmol/L (136-145); Total Protein 6.3 g/dL (6.4-8.2)
[2023-04-20 07:47] VITALS: BP 110/71; PULSE 68; RESP 19; TEMP 36.7; O2SAT 95
[2023-04-20] MEDS: Gemfibrozil 600 MG TAB PO ×2 (07:56→19:36)
[2023-04-20] MEDS: Normal Saline Flush 10 ML SYR IVP ×3 (07:56→19:46)
[2023-04-20] MEDS: Lisinopril 5 MG TAB PO (07:56)
[2023-04-20] MEDS: Enoxaparin 100 MG/ML SYR 90 MG SC (07:56)
[2023-04-20] MEDS: HYDROmorphone 2 MG/ML SYR 0.5 MG IVP ×2 (07:57→18:05)
--- NOTE | 2023-04-20 10:42 | PGE_ITS ---
Date of Service Date of service: 04/20/23 Time of Service: 10:00 Assessment and Plan Assessment and plan (1) Cholecystitis: Status: Acute Assessment and plan: symptoms improving -await RUQ ultrasound today - plan for lap jerald tomorrow. the risks and the benefits of the procedure were explained to the patient in greater detail. also explained the possibility of an open procedure. - last dose of lovenox received this am. (2) Non-insulin dependent diabetes mellitus: Status: Acute Assessment and plan: patient on ISS and glucose checks (3) Chronic anticoagulation: Status: Acute Assessment and plan: see above Subjective Subjective Patient reports: no new complaints and still having pain Interval history since last seen: patient states he feels better today. denies n/v Exam Resp Effort & Inspection: normal respiratory effort Auscultation: clear to auscultation bilaterally GI Inspection: normal to inspection Other: less RUQ abdominal tenderness today compared to yesterday Objective Last Vital Signs Temp 98.1 F 04/20/23 07:47 Pulse 68 04/20/23 07:47 Resp 19 04/20/23 07:47 BP 110/71 04/20/23 07:47 Pulse Ox 95 04/20/23 07:47 Laboratory Results - last 24 hr 04/20/23 06:30 WBC 6.20 RBC 4.52 Hgb 13.3 L Hct 38.1 L MCV 84 MCH 29.4 MCHC 34.9 RDW 12.9 Plt Count 217 MPV 12.2 H Immature Gran % 0.3 Neutrophils % 47.3 Lymphocytes % 33.1 Monocytes % 9.7 Eosinophils % 8.5 Basophils % 1.1 Nucleated RBC % 0.0 Absolute Neutrophils 2.93 Absolute Lymphocytes 2.05 Absolute Monocytes 0.60 Absolute Eosinophils 0.53 Absolute Basophils 0.07 Sodium 140 Potassium 4.1 Chloride 107 Carbon Dioxide 24.1 Anion Gap 8.9 BUN 12 Creatinine 1.0 Est GFR (CKD-EPI 2020) 91.69 Glucose 125 H Calcium 8.1 L Total Bilirubin 0.7 AST 24 ALT 63 Alkaline Phosphatase 68 Total Protein 6.3 L Albumin 3.1 L Time Spent with Patient Time Spent with Patient: 35-49 minutes Time was spent: preparing to see the patient(eg.review tests), obtaining and/or reviewing separately otained hiistory, ordering medications,tests, procedures, referring, communicating with other health home care and home health aides teacher, counseling the patient and care coordination
[2023-04-20 11:24] VITALS: BP 106/71; PULSE 53; RESP 18; TEMP 36.2; O2SAT 98
--- NOTE | 2023-04-20 11:50 | DI.VRAD_ITS ---
Addendum created by Amos Pizano MD on 04/20/2023 11:57:51 AM EST: THIS REPORT CONTAINS FINDINGS THAT MAY BE CRITICAL TO PATIENT CARE. The findings were verbally communicated via telephone conference with Debby Saez at 11:57 AM EST on 04/20/2023. The findings were acknowledged and understood. Initial report created on 04/20/2023 11:50:11 AM EST: PROCEDURE INFORMATION: Exam: US Abdomen, Limited; Right Upper Quadrant Exam date and time: 04/20/2023 11:31 AM Age: 52 years old Clinical indication: Abnormal findings; Abnormal radiologic finding of the abdomen; Radiologic exam and body structure: CT TECHNIQUE: Imaging protocol: Real time ultrasound of the abdomen with image documentation. Limited exam focused on the right upper quadrant. COMPARISON: US SOFT TISS ABD WALL/LOW BACK 08/01/2020 3:19 PM FINDINGS: Liver: There is a diffuse increase in hepatic parenchymal echogenicity, consistent with fatty infiltration. Hepatomegaly 20 cm Gallbladder: Gallstones in the gallbladder. Gallbladder wall 6.38 mm. The gallbladder is distended 10 cm. Pericholecystic fluid Biliary ducts: Common bile duct 4.2 mm Pancreas: Visualized pancreas is unremarkable. Right kidney: Right kidney 12.7 cm.. No hydronephrosis Portal venous: Hepatopetal flow in the portal vein IMPRESSION: Gallbladder wall 6.38 mm. Gallstones in the gallbladder. Findings may reflect acute cholecystitis Dictated and Authenticated by: Amos Pizano MD. Ordering:JONNY Guardado MD
--- NOTE | 2023-04-20 14:11 | PHA.REVIEW2 ---
Pharmacy Admission Review Admission Clinical Review Admission Pharmacy Review: Non-insulin dependent diabetes mellitus (Acute) Chronic anticoagulation (Acute) Cholecystitis (Acute) Penicillins Adverse Reaction (Mild, Unverified 04/18/23 23:14) Diarrhea Resuscitation Status Full Code Height 5 ft 8 in Weight 90.356 kg Pharmacy Admission Review Renal Dosing Renal Dosing: BUN 12 mg/dL (7-18) 04/20/23 06:30 Creatinine 1.0 mg/dL (0.70-1.30) 04/20/23 06:30 Medications needing adjustments: Reviewed (crcl = 96, no adjustments needed) Anticoagulation Anticoagulation: Hgb 13.3 g/dL (13.5-17.5) L 04/20/23 06:30 Hct 38.1 % (40.0-50.0) L 04/20/23 06:30 Plt Count 217 10^3/uL (130-400) 04/20/23 06:30 INR 1.1 (0.9-1.1) 04/19/23 00:30 Creatinine 1.0 mg/dL (0.70-1.30) 04/20/23 06:30 DVT Prophylaxis: Reviewed Medications: Enoxaparin (enoxaparin 90 mg x 1 dose given 04/20/23 at 0756) Therapeutic Anticoagulation: Reviewed Medications: Rivaroxaban (takes xarelto 10 mg daily for h/o DVT's, last dose 04/19/23 at 0820) Opiate Usage Evaluate Pain Scale/Pains Meds: Reviewed (hydromorphone 0.5 mg IV q4h prn ordered, has only used 1 dose) Scheduled Bowel Reg ordered if on Opiates?: No Relevant Labs Relevant Labs: Sodium 140 mmol/L (136-145) 04/20/23 06:30 Potassium 4.1 mmol/L (3.5-5.1) 04/20/23 06:30 Chloride 107 mmol/L (98-107) 04/20/23 06:30 Electrolytes, C-Reactive P, ESR: Reviewed DM Control DM Control: Reviewed Insulin Dosing, Diabetic Medication: takes metformin, ozempic at home (both held). covered w/insulin aspart sliding scale w/meals while here (not on insulin at home) Cardiac Review BP, HR, EF%: Reviewed QTc Review QTc: Not Reviewed (no EKG to review) IV to PO Switch IV Medications: Reviewed (IV abx necessary for now, change to PO when pt advances diet/tolerating PO) Home Meds Home Med List reviewed: Reviewed Relevent Home Meds Not ordered & why?: metformin/ozempic held - covered w/ss insulin, xarelto on hold (surgery tomorrow) Current Meds Current Medication Order Review: Reviewed Pharmacy Antibiotic Review Pharmacy Antibiotic Activity: Reviewed, no change Comments: zosyn 3.375 q6h for cholecystitis. lap jerald tomorrow
--- NOTE | 2023-04-20 15:14 | ANES.PREOP_ITS ---
General Info Date of Service Date Performed: 04/20/23 Height: 5 ft 8 in Weight: 90.356 kg Body Mass Index (BMI): 30.2 Meds Allergies and Home Medications Allergies Allergy/AdvReac Type Severity Reaction Status Date / Time Penicillins AdvReac Mild Diarrhea Unverified 04/18/23 23:14 Home Medication Medication Instructions Recorded gemfibrozil 600 mg tablet 600 mg PO BID 06/25/15 rivaroxaban 10 mg tablet (Xarelto) 10 mg PO DAILY 01/07/19 lisinopril 5 mg tablet 5 mg PO DAILY 10/09/21 cetirizine 10 mg tablet 10 mg PO DAILY PRN 02/12/22 metformin 1,000 mg tablet 1,000 mg PO BID 06/19/22 semaglutide 0.25 mg or 0.5 mg (2 0.5 mg subcut QWEEK 06/19/22 mg/3 mL) subcutaneous pen injector (Ozempic) oxycodone 5 mg tablet 5 - 10 mg (1 - 2 x 5 mg) PO .q4-6h 02/07/23 PRN severe pain #18 tabs Current Visit Medications: Current Medications Generic Name Dose Route Start Last Admin Trade Name Freq PRN Reason Stop Dose Admin Cetirizine HCl 10 mg 04/19/23 10:15 Cetirizine 10 Mg Tab PO DAILY PRN PRN Dextrose 0 gm 04/19/23 01:54 Glucose Oral Gel 15 Gm/37.5 Gm Tube PO DIRECTED PRN Dextrose/Water 0 gm 04/19/23 01:54 Dextrose 50%-Water 25 Gm/50 Ml Syr IVP DIRECTED PRN Gemfibrozil 600 mg 04/19/23 08:30 04/20/23 07:56 Gemfibrozil 600 Mg Tab PO 600 mg BID JARRETT Administration Hydromorphone HCl 0.5 mg 04/19/23 17:39 04/20/23 07:57 Hydromorphone 2 Mg/Ml Syr IVP 0.5 mg Q4H PRN PRN Administration Sodium Chloride 1,000 mls @ 125 mls/hr 04/19/23 02:00 04/20/23 11:46 Saline 1000ml Bag IV 125 mls/hr INFUSION JARRETT Administration Piperacillin Sod/Tazobactam 50 mls @ 100 mls/hr 04/19/23 08:00 04/20/23 14:09 Sod 3.375 gm/ Sodium Chloride IVPB 100 mls/hr Q6H JARRETT Administration Sodium Chloride 500 mls @ 0 mls/hr 04/19/23 10:30 Saline 500ml Bag IV DIRECTED PRN As Directed IV Miscellaneous Supplies 1 each 04/19/23 10:30 Iv Access IV DIRECTED JARRETT Insulin Aspart 0 units 04/19/23 22:00 04/20/23 11:28 Insulin Aspart 300 Units/3 Ml Pen SC Not Given 0800,1200,1700,2200 [facility] Protocol Lisinopril 5 mg 04/19/23 08:30 04/20/23 07:56 Lisinopril 5 Mg Tab PO 5 mg DAILY JARRETT Administration Sodium Chloride 0 ml 04/19/23 01:10 04/20/23 11:46 Normal Saline Flush 10 Ml Syr IVP 10 ml PRN PRN Administration Sodium Chloride 0 ml 04/19/23 08:30 04/20/23 07:56 Normal Saline Flush 10 Ml Syr IVP 10 ml BID JARRETT Administration Sodium Chloride 0 ml 04/19/23 01:54 Normal Saline 10 Ml Vial IJ DIRECTED PRN PFSH Active Problems Active Problems: Problem Status Onset Code Non-insulin dependent diabetes mellitus Chronic anticoagulation Z79.01 Cholecystitis K81.9 Stiffness of left knee M25.662 Traumatic tear of medial collateral ligament of knee ~11/22/22 S83.419A Medical History Medical History (Updated 04/19/23 @ 14:41 by Naila Gutierrez MD) Injury of left radial nerve Extensor tenosynovitis of wrist Calcific tendonitis of left shoulder Injury of peripheral nerve of left upper extremity Traumatic rupture of left distal biceps tendon (10/06/21) Amplified musculoskeletal pain, localized Factor V Leiden DVT (deep venous thrombosis) Hx of hyperlipidemia Medical History Comments:: Pt. will have been off Ozempic 13 days NOT rec. 14 days-reviewed and ok'd to proceed per JJ and DK Surgical History Surgical History History of eye surgery History of appendectomy Tobacco Smoking/Tobacco Use Status: Former Tobacco Use Alcohol Alcohol Intake: current Alcohol intake frequency: holidays/special occasions only Substance Use Substance use: Never Substance use type: does not use Vital Signs and Lab Results Vital Signs Most Recent Vital Signs in EMR: Most Recent Vital Signs Temp Pulse Resp BP Pulse Ox 36.2 C L 53 L 18 106/71 98 04/20/23 11:24 04/20/23 11:24 04/20/23 11:24 04/20/23 11:24 04/20/23 11:24 Point of Care Results Point of Care Results: Finger Stick Blood Glucose 96 04/20/23 11:28 Lab Results 04/20/23 06:30 04/20/23 06:30 Blood Type / Crossmatch: 2 No Data to Display Complete Blood Count: 2 White Blood Count 6.20 10^3/uL (4.4-10.8) 04/20/23 06:30 Red Blood Count 4.52 10^6/uL (4.36-5.78) 04/20/23 06:30 Hemoglobin 13.3 g/dL (13.5-17.5) L 04/20/23 06:30 Hematocrit 38.1 % (40.0-50.0) L 04/20/23 06:30 Platelet Count 217 10^3/uL (130-400) 04/20/23 06:30 Complete Metabolic Panel: 2 Sodium 140 mmol/L (136-145) 04/20/23 06:30 Potassium 4.1 mmol/L (3.5-5.1) 04/20/23 06:30 Chloride 107 mmol/L (98-107) 04/20/23 06:30 Carbon Dioxide 24.1 mmol/L (21.0-32.0) 04/20/23 06:30 BUN 12 mg/dL (7-18) 04/20/23 06:30 Creatinine 1.0 mg/dL (0.70-1.30) 04/20/23 06:30 Est GFR (CKD-EPI 2020) 91.69 (mL/min/1.73m2) 04/20/23 06:30 Calcium 8.1 mg/dL (8.5-10.1) L 04/20/23 06:30 Albumin 3.1 g/dL (3.4-5.0) L 04/20/23 06:30 Glucose 125 mg/dL (74-106) H 04/20/23 06:30 Liver Function Panel: 2 Alanine Aminotransferase (ALT/SGPT) 63 U/L (16-63) 04/20/23 06: 30 Aspartate Amino Transf (AST/SGOT) 24 U/L (15-37) 04/20/23 06:30 Coagulation Panel: 2 INR International Normalized Ratio 1.1 (0.9-1.1) 04/19/23 00:3 0 Prothrombin Time 10.6 sec (9.1-11.1) 04/19/23 00:30 Activated Partial Thromboplast Time 29.2 sec (23.6-32.8) 00:30 Cardiac Panel: 2 No Data to Display Arterial Blood Gas: 2 No Data to Display Venous Blood Gas: 2 No Data to Display Pancreas Panel: 2 Lipase 30 U/L (16-77) 04/18/23 00:00 Thyroid Panel: 2 No Data to Display Infectious Disease: 2 No Data to Display Blood Cultures: 2 No Data to Display Toxicology Panel: 2 No Data to Display Imaging and Studies Imaging and Studies Study information below may be from another EMR and interpreted by another provider. Please see original notes in EMR for more complete details. Pulmonary Function Summary: Impression Normal pulmonary function test Clinical Correlation therefore is recommended. 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 Anesthesia Assessment and Plan Anesthesia History Personal History: No History of Anesthesia Complications Family History: No Family History of Anesthesia Complications Exercise Tolerance Exercise Tolerance: Metabolic Equivalents>4 Pertinent Negatives Pertinent Negatives: No Symptoms of GERD Cardiac & Pulmonary Exam Cardiac Exam: Normal S1/S2 Heart Sounds Pulmonary Exam: Clear Bilateral Breath Sounds Implantable Cardiac Device Does patient have a Pacemaker or an ICD?: No Airway Exam Known Difficult Airway: No Mallampati Class: 2 Mouth Opening: Normal (> 3cm) Thyromental Distance: Greater than 3 cm Neck Range of Motion: Full ROM Neck Circumference: Normal Teeth Condition: Generalized Poor Dentition and Loose or Chipped ASA Classification ASA Score: ASA 3 Emergency Case?: No NPO Status NPO Status: NPO Clears >2 hours, Solids >8 hours (? Full Stomach status d/t Ozempic inj on 04/19.) Anesthesia Plan Resuscitation Status: Full Code Anesthesia Technique: General Anesthesia Airway Planned: Endotracheal Tube Monitors Used: Standard Monitors Preoperative Comments:: factor V Leiden dating mutation, has been taking Xarelto for approximately 4 years. Pt also reports a weekly dose of Ozempic (inj) give yesterday 04/19.
[2023-04-20 15:16] VITALS: BMI 30.2
[2023-04-20 16:03] VITALS: BP 124/86; PULSE 56; RESP 18; TEMP 36.2; O2SAT 97
[2023-04-20 20:41] VITALS: BP 121/81; PULSE 64; RESP 18; TEMP 36.3; O2SAT 96
[2023-04-21] MEDS: PIPERACILLIN/TAZO 3.375 GM in Normal Saline 50 ML IVPB ×4 (02:25→20:49)
[2023-04-21 04:24] VITALS: BP 126/78; PULSE 73; RESP 18; TEMP 36.7; O2SAT 95
[2023-04-21] MEDS: Normal Saline 1,000 ML 125 ML IV ×3 (05:46→20:49)
[2023-04-21] MEDS: Normal Saline Flush 10 ML SYR IVP ×4 (07:13→20:50)
[2023-04-21] MEDS: Lisinopril 5 MG TAB PO (07:23)
[2023-04-21] MEDS: Gemfibrozil 600 MG TAB PO ×2 (07:23→20:49)
[2023-04-21 07:26] VITALS: BP 125/81; PULSE 79; RESP 18; TEMP 36.3; O2SAT 97
--- NOTE | 2023-04-21 11:10 | PGE_ITS ---
Date of Service Date of service: 04/21/23 Time of Service: 10:00 Assessment and Plan Assessment and plan (1) Cholecystitis: Status: Acute Assessment and plan: plan to proceed with OR today - on abx - last does lovenox 24 hrs ago Subjective Subjective Patient reports: no new complaints, feels better and tolerating liquids well; denies nausea or vomiting Interval history since last seen: reviewed surgery again with the patient. reveiwed risks and benefits. patient had and opportunity to ask questions. questions answered Exam Resp Effort & Inspection: normal respiratory effort Auscultation: clear to auscultation bilaterally GI Inspection: normal to inspection Palpation: soft Other: decreased RUQ tenderness Objective Last Vital Signs Temp 97.3 F L 04/21/23 07:26 Pulse 79 04/21/23 07:26 Resp 18 04/21/23 07:26 BP 125/81 04/21/23 07:26 Pulse Ox 97 04/21/23 07:26 Time Spent with Patient Time Spent with Patient: 25-34 minutes Time was spent: preparing to see the patient(eg.review tests), obtaining and/or reviewing separately otained hiistory, referring, communicating with other health child adolescent care and counseling the patient
[2023-04-21 11:26] VITALS: BP 141/92; PULSE 53; RESP 18; TEMP 36.4; O2SAT 98
[2023-04-21] MEDS: Indocyanine green 25 MG VIAL 5 MG IVP (11:35)
--- NOTE | 2023-04-21 13:35 | CMPROGNOTE_ITS ---
Date of service: 04/21/23 Care Management Progress Note Progress Note Text Progress Note Text: S/O: Ruddy was lying in bed when meeting the CM, engaging in conversation. His soon to be Maria Ines was present in the room as well. Ruddy expressed his frustration of coming into [facility] Friday, being told he would have an in an out procedure Friday evening, to then being told it wouldn't be until Friday. Ruddy said he has not been able to eat or drink since arriving and is very much looki ng forward to having the procedure and being able to go home. Ruddy also expressed how with Maria Ines being his partner, she should be able to come after normal visiting hours, CM discussed [facility] policy. CM will continue to follow. A: Ruddy is a 52 year old male admitted to [facility] 04/19/23 for cholecystitis. P: Ruddy will discharge home once medically cleared. He will transport home via private vehicle. He will follow up with his [facility]CP and [facility]. CM will continue to follow. SDOH(Care Management) Screening Will the Patient Participate in the Screening?: Yes Do you worry about having a steady place to live?: no Problems where you live: no known problems In the past 12 months, have you had to go without electric, gas, oil or water in your home?: no Have you or anyone in your house had to go without enough food to eat?: no Has lack of transportation kept you from medical appointments or from doing things needed for daily living?: no Has anyone in your support network made you feel unsafe for any reason?: no
[2023-04-21 15:19] VITALS: BP 146/93; PULSE 59; RESP 18; TEMP 36.6; O2SAT 98
[2023-04-21] MEDS: HYDROmorphone 2 MG/ML SYR 0.5 MG IVP (18:00)
[2023-04-21 19:46] VITALS: BP 134/83; PULSE 65; RESP 17; TEMP 36.6; O2SAT 96
[2023-04-22] VITALS (18 sets, daily range): BP systolic 111–135; BP diastolic 63–82; PULSE 53–88; RESP 15–25; TEMP 35.6–37; O2SAT 93–96
[2023-04-22] MEDS: PIPERACILLIN/TAZO 3.375 GM in Normal Saline 50 ML IVPB ×4 (02:05→20:27)
[2023-04-22] MEDS: Normal Saline 1,000 ML 125 ML IV ×2 (04:42→13:16)
[2023-04-22] MEDS: Normal Saline Flush 10 ML SYR IVP ×2 (08:17→20:27)
[2023-04-22] MEDS: Lactated Ringers 1,000 ML 30 ML IV (09:00)
--- NOTE | 2023-04-22 09:06 | W.PM.PROGNOT ---
Date of Service Date of service: 04/22/23 Time of Service: 09:06 Assessment and Plan Assessment and plan (1) Cholecystitis: Status: Acute Assessment and plan: proceed with lap jerald this am Subjective Subjective Patient reports: no new complaints and pain is less Exam Resp Effort & Inspection: normal respiratory effort Auscultation: clear to auscultation bilaterally Cardio Rate: regular rate Rhythm: regular rhythm GI Inspection: normal to inspection Other: ruq tenderness to palpation Objective Last Vital Signs Temp 98.2 F 04/22/23 07:39 Pulse 53 L 04/22/23 07:39 Resp 18 04/22/23 07:39 BP 130/79 04/22/23 07:39 Pulse Ox 95 04/22/23 07:39 Time Spent with Patient Time Spent with Patient: <25 minutes Time was spent: preparing to see the patient(eg.review tests), obtaining and/or reviewing separately otained hiistory and ordering medications,tests, procedures
--- NOTE | 2023-04-22 09:10 | PDOC.CMPRO ---
Date of service: 04/22/23 Care Management Progress Note Progress Note Text Progress Note Text: S/O: Ruddy was sitting up in bed eating when meeting with CM. Patient had just taken pain medications but was saying was not in the kind of pain he was in before surgery. CM let PT know that his visiting past visiting hours would need to be cleared through nursing supervisor grading. Ruddy hopes to discharge tomorrow since he has been here since Friday. CM will continue to follow. A: Ruddy is a 52 year old male admitted to [facility] 04/19/23 for cholecystitis. P: Ruddy will discharge home once medically cleared. He will transport home via private vehicle. He will follow up with his PCP and [facility] emergency department plan of care. CM will continue to follow. SDOH(Care Management) Screening Will the Patient Participate in the Screening?: Yes Do you worry about having a steady place to live?: no Problems where you live: no known problems In the past 12 months, have you had to go without electric, gas, oil or water in your home?: no Have you or anyone in your house had to go without enough food to eat?: no Has lack of transportation kept you from medical appointments or from doing things needed for daily living?: no Has anyone in your support network made you feel unsafe for any reason?: no
[2023-04-22] MEDS: Bupivacaine 0.25% Pres-Free 30 ML VIAL (10:56)
--- NOTE | 2023-04-22 11:10 | ROE_ITS ---
Date of service: 04/22/23 Time of Service: 11:10 Operative Note Operative Note DATE OF PROCEDURE: 04/22/23 PRE-OP DIAGNOSIS: Acute cholecystitis PROCEDURE: Laparoscopic cholecystectomy with needle decompression of the gallbladder SURGEON: Debby Saez ANESTHESIA TYPE: Local By Surgeon and MAC Refer to Anesthesia Record ESTIMATED BLOOD LOSS: 25 PATHOLOGY: other (Gallbladder) COMPLICATIONS: None Patient was transported to: PACU Patient's condition: stable Indications: This patient is a 52-year-old male who presented to the emergency department with signs and symptoms of acute cholecystitis. After complete history and physical examination was performed it was also discovered that the patient had factor V Leiden mutation. He received Xarelto and was bridged with Lovenox. Last dose of Xarelto was 48 hours prior to the procedure. The patient then proceeded with laparoscopic cholecystectomy 4. days after hospital admission. The risk and benefits of the procedure were explained to the patient. Risk including but not limited to bleeding, infection, damage to any surrounding nerves arteries veins bowel, risk of additional DVT and PE. The patient indicated that he understood the risk informed consent was obtained and placed on chart. Findings: Acutely inflamed and distended gallbladder. Gallbladder required needle decompression. Procedure Description: The patient was brought to the operating room where he was placed on the operating table in supine position. After adequate general endotracheal anesthesia was administered by the department of anesthesia preoperative antibiotics were administered, the abdomen was prepped and draped in standard sterile fashion and a timeout was performed to confirm the site of surgery. Using a #15 blade scalpel and infraumbilical incision was made. Mini laparotomy technique was used to gain entry into the peritoneal cavity. The abdomen was insufflated to a pressure of 12 to 15 mmHg. Upon primary survey of the abdomen there is no apparent injury from trocar insertion. The gallbladder was visualized in the right upper quadrant of the abdomen. It was erythematous and distended. Under direct visualization a 12 mm trocar was placed in the subxiphoid region. A 5 mm trocar was placed in the anterior axillary line. An additional 5 mm trocar was placed in the midclavicular line. The patient was then repositioned in reverse Trendelenburg with the right side up. Blunt graspers were introduced. Omental attachments were taken off the surface of the gallbladder. The gallbladder was then needle decompressed. Approximately 50 cc of thick green bile was drained from the gallbladder. The fundus of the gallbladder was grasped and retracted cephalad. [place] dissector was then used to take off peritoneal attachments and omental attachments to the gallbladder. Another blunt grasper was introduced and used to retract the infundibulum of the gallbladder laterally and down. [place] dissector was used to skeletonize the cystic duct. The patient was previously administered indocyanine green dye. The infrared camera was used to check the biliary anatomy. Dissection of the cystic duct was confirmed. It was clear that cystic duct was going into the infundibulum of the gallbladder. The cystic duct was further skeletonized. Cystic artery was skeletonized. The Calot's triangle was reviewed. 3 endoclips were placed on the cystic duct proximally and 1 Endo Clip placed distally. Cystic duct was divided using EndoShears. 3 endoclips were placed on the cystic artery proximally and 1 Endo Clip was placed distally. The cystic artery was divided using EndoShears. The gallbladder was then further skeletonized down to its base and the gallbladder gallbladder fossa. This was done using [place] dissector. Next Bovie electrocautery was used to dissect the gallbladder off of its base within the liver bed. Careful hemostasis was achieved throughout this dissection. Hemostasis was checked and achieved. The gallbladder was then placed in the Endo Catch bag. Upon attempting to retrieve the gallbladder through the subxiphoid incision the gallbladder was noted to have large stones. Skin incision was lengthened in the fascia was incised. Even with doing this the gallbladder bag ripped. The gallbladder was retrieved through the incision. There was some spillage of bile. The gallbladder was retrieved and passed off of the operative field. The subxiphoid trocar site was copiously irrigated with saline solution. The intra-abdominal cavity where there had been some spillage of bile but also copiously irrigated with saline solution. Attention was turned to the gallbladder fossa. the gallbladder fossa was irrigated with saline solution. Excess irrigation was suctioned. The gallbladder fossa was checked. There was no evidence of any bleeding from the liver bed. The clips on the cystic duct remnant and the cystic artery remnant were checked. There was no oozing of bile or any bleeding. The patient was then returned to neutral position and excess irrigation was suction. All trocars were removed under direct visualization. There was no bleeding from the trocar sites. The abdomen was then completely desufflated. The fascia of the trocar sites greater than 5 mm were reapproximated using 0 Vicryl suture with [id number] stitches. Once again the skin and subcutaneous tissue of the subxiphoid trocar site was copiously irrigated with saline solution. The skin and subcutaneous tissue of the incisions sites were anesthetized with local anesthetic. Skin edges were reapproximated using 4-0 Vicryl with a running subcuticular stitch. Skin edges were reapproximated using Dermabond. The abdomen was then cleaned and dried. Sterile dressings were applied. Patient tolerated procedure well and was taken to postanesthesia care unit in good con dition. At the end of the case the needle sponge and instrument counts were all correct.
--- NOTE | 2023-04-22 12:12 | W.ANESPOSTOP ---
Postoperative Evaluation Date, Time and Location Date Performed: 04/22/23 Time Performed: 12:12 Patient Location: PACU Vital Signs Most Recent Imported Vital Signs: Most Recent Vital Signs Temp Pulse Resp BP Pulse Ox 36.6 C 76 16 111/64 96 04/22/23 11:47 04/22/23 12:00 04/22/23 12:00 04/22/23 12:00 04/22/23 12:00 Pain Score Most Recent Pain Score: Most Recent Pain Score Pain Level 8 04/22/23 12:00 Assessment Mental Status: Awake (Alert & Oriented to Patient Baseline) Airway and Respiratory Function: Patent airway with normal (patient baseline) respiratory exam Cardiovascular Function: Hemodynamically Stable Hydration Status: Adequately Hydrated Nausea & Vomiting: No Nausea or Vomiting Pain: Pain is Moderate or Severe Postoperative Pain Management: Pain being addressed with medication Peripheral Nerve Block: Patient did not receive a nerve block
[2023-04-22] MEDS: HYDROmorphone 2 MG/ML SYR IVP (12:13)
[2023-04-22] MEDS: Normal Saline 10 ML VIAL IJ (12:13)
[2023-04-22] MEDS: HYDROmorphone 2 MG/ML SYR 0.5 MG IVP ×2 (13:16→17:01)
[2023-04-22] MEDS: oxyCODONE 5 MG TAB PO ×4 (13:25→23:29)
--- NOTE | 2023-04-22 16:11 | W.PM.PROGNOT ---
Date of Service Date of service: 04/22/23 Time of Service: 16:11 Assessment and Plan Assessment and plan (1) Cholecystitis: Status: Acute Assessment and plan: s/p lap jerald - start xarelto in am - d/c ivf - will s/o to oncoming surgeon Subjective Subjective Interval history since last seen: patient seen and examined after surgery. explained intraoperative findings. patient pain controlled. tolerating diet. explained postop instructions. Exam GI Inspection: normal to inspection Other: incisions are clean dry and intact Objective Last Vital Signs Temp 98.4 F 04/22/23 16:00 Pulse 83 04/22/23 16:00 Resp 18 04/22/23 16:00 BP 130/73 04/22/23 16:00 Pulse Ox 93 04/22/23 16:00 Time Spent with Patient Time Spent with Patient: <25 minutes Time was spent: preparing to see the patient(eg.review tests) and referring, communicating with other health palliative care specialist
[2023-04-22] MEDS: Insulin Aspart 300 UNITS/3 ML PEN SC ×2 (17:02→20:43)
[2023-04-22] MEDS: Gemfibrozil 600 MG TAB PO (20:26)
[2023-04-23] MEDS: PIPERACILLIN/TAZO 3.375 GM in Normal Saline 50 ML IVPB ×2 (02:36→08:12)
[2023-04-23 03:45] VITALS: BP 119/77; PULSE 63; RESP 19; TEMP 36.2; O2SAT 96
[2023-04-23] MEDS: oxyCODONE 5 MG TAB PO ×3 (04:30→12:18)
[2023-04-23 07:40] VITALS: BP 119/85; PULSE 65; RESP 18; TEMP 36.7; O2SAT 95
[2023-04-23] MEDS: Insulin Aspart 300 UNITS/3 ML PEN SC ×2 (08:12→12:11)
[2023-04-23] MEDS: Normal Saline Flush 10 ML SYR IVP (08:13)
[2023-04-23] MEDS: Rivaroxaban 10 MG TABLET PO (08:13)
[2023-04-23] MEDS: Gemfibrozil 600 MG TAB PO (08:13)
[2023-04-23] MEDS: Lisinopril 5 MG TAB PO (08:14)
--- NOTE | 2023-04-23 11:14 | CMPROGNOTE_ITS ---
Date of service: 04/23/23 Care Management Progress Note Progress Note Text Progress Note Text: S/O: Ruddy was sitting up on a bench. His girlfriend and children were in the room as well. He said he was not expecting to be in pain the way he has been, but is remains eager to go home. He has has tolerated three solid meals. He is awaiting discharge from the surgeon. A: Ruddy is a 52 year old male admitted to [facility] 04/19/23 for cholecystitis. P: Ruddy will discharge home once medically cleared. He will transport home via private vehicle. He will follow up with his PCP and discr plan of care. CM will continue to follow. SDOH(Care Management) Screening Will the Patient Participate in the Screening?: Yes Do you worry about having a steady place to live?: no Problems where you live: no known problems In the past 12 months, have you had to go without electric, gas, oil or water in your home?: no Have you or anyone in your house had to go without enough food to eat?: no Has lack of transportation kept you from medical appointments or from doing things needed for daily living?: no Has anyone in your support network made you feel unsafe for any reason?: no
--- NOTE | 2023-04-23 12:30 | W.PM.DS.N ---
Date of service: 04/23/23 Time of Service: 12:30 DS: Diagnosis Discharge Diagnosis (1) Cholecystitis: Status: Acute Asessment and Plan: Postop day 1 from laparoscopic cholecystectomy. Hemodynamically stable and doing well. Abdominal exam benign. Back on blood thinners. Overall plan: Discharge home Discharge Plan Disposition Patient Disposition: Home Condition: Good Discharge Details Reason For Visit: cholecystitis Admit Date/Time: 04/19/23 01:56 Admit Provider: Debby Saez Attending Provider: Debby Saez Primary Care Provider: Meghana Murphy Hospital Course Hospital Course: 52 yo man with a history of factor V Leiden disease and on Xarelto presented to the ER with abdominal pain and was found to have acute cholecystitis. He was admitted, placed on antibiotics and bridged in order for his anticoagulation to wear off. He then underwent laparoscopic cholecystectomy and on postoperative day 1 his blood thinners were restarted and he was doing well and discharged home. Home Meds and New Rx's Prescriptions: No Action cetirizine 10 mg tablet 10 mg PO DAILY PRN Ozempic 0.25 mg or 0.5 mg (2 mg/3 mL) pen injector 0.5 mg subcut QWEEK metformin 1,000 mg tablet 1,000 mg PO BID lisinopril 5 mg tablet 5 mg PO DAILY gemfibrozil 600 MG tablet 600 mg PO BID Xarelto 10 mg Tablet 10 mg PO DAILY oxycodone 5 mg tablet 5 - 10 mg PO .q4-6h PRN (Reason: severe pain) Qty: 18 0RF Discharge Instructions Additional Instructions: Incisions: Keep clean and dry but they do not need to be covered. It is okay to shower but no tub bathing for 1 week. You can peel the glue off after 1 week. Activity: As tolerated. There are no restrictions. Return to work, as tolerated in the next few days. If you need a work note call the surgery office. Diet: Regular diet as tolerated Medications: Resume all of your usual/regular home medications Follow-up: Follow-up is optional. If you are having any issues or concerns call the surgery office immediately. If you want to have a routine follow-up that is perfectly fine and you can call and schedule an. If everything is otherwise going well, you do not need to follow-up. Pain control: Take Tylenol, 1000 mg, every 6 hours on a schedule for the next 3 days. You can use ibuprofen in addition to Tylenol if more pain medication is needed. Overall: Symptoms should not be worsening. If you have any difficulty breathing or you have return of symptoms of brought you to the hospital or your pain is otherwise worsening each day and you should call the doctor's office or come into the hospital to be checked out. Activity:: Activity as Tolerated Equipment/Supplies:: No Equipment Needed Diet:: As Tolerated Discharge Orders Discharge Orders: Discharge Order (Routine); Ordered 04/23/23 Ordered By: Devon Chairez DS: Summary Time Spent with Patient providing and/or coordinating discharge services: Less than 30 minutes Status at Discharge Functional status at discharge: independent ambulation Overall status at discharge: patient is progressing back to baseline Mental Status: mental status grossly normal Speech and Movement: speech and movement normal Mood: congruent mood Affect: normal affect Quality:SDOH Health Related Social Needs: No Data to Display Exam Narrative Exam Narrative: General: Nontoxic, comfortable and interactive Neuro: Alert and oriented x 3 Psych: Good mood and affect, good insight and understanding into his conditions Abdomen: Soft, nondistended, appropriately tender around incision sites only. The incisions are perfect. The glue is intact. No erythema. Lower extremities: Free range of motion, no edema, symmetrical Psych Mental Status: mental status grossly normal Speech and Movement: speech and movement normal Mood: congruent mood Affect: normal affect DS: Data Vitals/I&O Vitals and I&O: Vital Signs Temperature 98.0 F 04/23/23 07:40 Temperature Source Tympanic 04/23/23 07:40 Pulse 65 04/23/23 07:40 Pulse Rhythm Regular 04/23/23 09:00 Respiratory Rate 18 04/23/23 07:40 Respiratory Effort Normal 04/23/23 09:00 Respiratory Depth Normal 04/23/23 09:00 Respiratory Pattern Normal 04/23/23 09:00 Blood Pressure 119/85 04/23/23 07:40 Pulse Oximetry 95 04/23/23 07:40 Respiratory End-tidal CO2 29 04/22/23 11:47 Oxygen Delivery Method Room Air 04/23/23 07:40 Oxygen Flow Rate 0 04/23/23 07:40 Pain Level 3 04/23/23 12:18 Comment 1st post-op VS 04/22/23 13:00 Intake & Output 04/22/23 04/23/23 04/23/23 23:59 11:59 23:59 Intake Total 1410 / 2895.417 450 / 850 400 / 850 Output Total 325 / 325 Balance 1085 / 2570.417 450 / 850 400 / 850 Intake: IV 1350 / 2835.417 50 / 50 Oral 60 / 60 400 / 800 400 / 800 Output: Urine 325 / 325 Other: Urine Color Yellow Urine Appearance Clear Clear Urine Odor None Comment per pt, voided x1 Emesis Description None Voiding Methods Toilet PFSH All Active Problems (Updated 04/19/23 @ 14:41 by Naila Gutierrez MD) Non-insulin dependent diabetes mellitus (Acute) Chronic anticoagulation (Acute) Cholecystitis (Acute) Stiffness of left knee (Acute) Traumatic tear of medial collateral ligament of knee (Acute ~11/22/22) Medical History (Updated 04/19/23 @ 14:41 by Naila Gutierrez MD) Injury of left radial nerve Extensor tenosynovitis of wrist Calcific tendonitis of left shoulder Injury of peripheral nerve of left upper extremity Traumatic rupture of left distal biceps tendon (10/06/21) Amplified musculoskeletal pain, localized Factor V Leiden DVT (deep venous thrombosis) Hx of hyperlipidemia Surgical History History of eye surgery History of appendectomy Family History (Updated 04/19/23 @ 14:29 by Naila Gutierrez MD) Maternal Cousin Stroke Diabetes Mother Cancer small cell lung cancer Hypertension Father Cancer renal cell carcinoma Hypertension Maternal Grandfather Cancer lung cancer Paternal Grandfather Cancer lung cancer vs aguilar's lung Maternal Grandmother Diabetes Paternal Grandmother Diabetes Social History Smoking/Tobacco Use Status: Former Tobacco Use Quit Date: 01/24/23 Smoking risk assessment performed?: Yes Alcohol Intake: current Alcohol Intake frequency: holidays/special occasions only Drug use: Never Substance use type: does not use Housing: house Current gender identity: male Do you feel safe at home: Yes Do you feel safe in your relationship?: Yes Time Spent with Patient Time Spent with Patient: <45 minutes Time was spent: obtaining and/or reviewing separately otained hiistory, counseling the patient and care coordination
== END 2023-04-23 13:25 | disposition home or self-care (01) | DRG 418 ==
LOC: ER 04-19 02:22 → MS 04-19 02:40
PROVIDERS: Admitting Provider Surgery; Emergency Provider Student in an Organized Health Care Education/Training Program; PCP Nurse Practitioner Family; Visit Provider Surgery
PROC: 0FT44ZZ Resection of Gallbladder, Percutaneous Endoscopic Approach (ICD-10-PCS; CPT 47562; principal; 2023-04-22 08:30)
DX: K80.10 Calculus of gallbladder with chronic cholecystitis without obstruction (principal); D68.51 Activated protein C resistance; E11.9 Type 2 diabetes mellitus without complications; E78.5 Hyperlipidemia, unspecified; Z86.718 Personal history of other venous thrombosis and embolism; Z79.01 Long term (current) use of anticoagulants; Z68.30 Body mass index [BMI] 30.0-30.9, adult; E66.9 Obesity, unspecified; K76.0 Fatty (change of) liver, not elsewhere classified; Z87.891 Personal history of nicotine dependence; Z79.85 Long-term (current) use of injectable non-insulin antidiabetic drugs
CPT/HCPCS: 47562; 00123; 36415; 80053; 83690; 96365; 96375; 99285; 71045; 74177; 76705; 80329; 85025; 85610; 85730; 88304; 93005; 93010; 99223; J0665; J1100; J1170; J1650; J1815; J1885; J2001; J2250; J2270; J2405; J2543; J2704; J3475; J3490

== ENCOUNTER 2023-07-09 15:41 | Outpatient (CLI) | payer MEDICAID, SELFPAY ==
--- NOTE | 2023-07-09 11:15 | DI.RAD_ITS ---
Exam(s) XR KNEE LT 3V AP,LAT,LUIS EXAM: XR KNEE LT 3V AP,LAT,LUIS CLINICAL HISTORY: Patellar pain. TECHNIQUE: 2D digital imaging was performed of the left knee. Three images were obtained. Merchant ,AP and lateral views were obtained. COMPARISON: CR XR KNEE LT 3V AP,LAT,LUIS from 11/21/2022 FINDINGS: BONES: No acute fracture is present. No bony destructive lesion is seen. There is a large enthesophy te at the superior patella. JOINTS: The knee is normally aligned. There is a small joint effusion. No loose body. SOFT TISSUE: There is a tiny calcification medial to the medial femoral condyle which may represent o ld MCL injury. IMPRESSION: 1. Small joint effusion. 2. Superior patellar enthesophyte. DATA REPOSITORY: RADIATION DOSE DELIVERED:
== END 2023-07-09 15:42 | disposition home or self-care (01) ==
LOC: DIORS 15:42
PROVIDERS: PCP Nurse Practitioner Family; Visit Provider Student in an Organized Health Care Education/Training Program
DX: M76.892 Other specified enthesopathies of left lower limb, excluding foot
CPT/HCPCS: 73562

== ENCOUNTER → 2023-09-04 00:17 | Outpatient (CLI) | payer MEDICAID, SELFPAY ==
--- NOTE | 2023-09-04 16:04 | DI.MRI_ITS ---
Exam(s) MR LOWER JOINT LT WO EXAM: MR LOWER JOINT LT WO CLINICAL HISTORY: Strain of lt patellar tendon, S86.812A. TECHNIQUE: Multiplanar multisequence MRI was performed. COMPARISON: MR MR LOWER JOINT LT WO from 12/09/2022 CR XR KNEE LT 3V AP,LAT,LUIS from 07/09/2023 FINDINGS: BONES: There is no fracture or contusion pattern. Large enthesophyte at the upper pole of the de jesus la. JOINTS: A small joint effusion is present. Articular cartilage: Patellofemoral joint: Articular cartilage is unremarkable. Medial femoral tibial joint: Articular cartilage is unremarkable. Lateral femoral tibial joint: Articular cartilage is unremarkable. LIGAMENTS: Anterior Cruciate: Unremarkable. Posterior Cruciate: Unremarkable. Medial Collateral:Unremarkable. Lateral Collateral ligament complex: Unremarkable. TENDONS: Extensor mechanism: Unremarkable. No abnormality identified in the patellar tendon. Medial retinaculum: Unremarkable. Lateral retinaculum: Unremarkable. Popliteus: Unremarkable. MENISCI: The medial meniscus shows a mild amount of degenerative intrasubstance signal, unchanged from prior. The lateral meniscus is unremarkable. MUSCLES: Unremarkable. SOFT TISSUES: Unremarkable. IMPRESSION: Small joint effusion. No evidence of ligament or meniscal tear. Patellar tendon appears intact. DATA REPOSITORY:
== END ==
PROVIDERS: PCP Nurse Practitioner Family; Visit Provider Student in an Organized Health Care Education/Training Program
DX: S86.812A Strain of other muscle(s) and tendon(s) at lower leg level, left leg, initial encounter (principal)
CPT/HCPCS: 73721

== ENCOUNTER 2023-10-10 10:00 | Day surgery (SDC) | payer MEDICAID, SELFPAY ==
--- NOTE | 2023-10-09 12:49 | W.PM.DSUDISC ---
Date of service: 10/10/23 Time of Service: 11:41 Discharge Plan Disposition Patient Disposition: Home Condition: Good Discharge Details Reason For Visit: Colon cancer screening Attending Provider: Delmi Sylvester Primary Care Provider: Meghana Murphy Home Meds and New Rx's Prescriptions: Continued cetirizine 10 mg tablet 10 mg PO DAILY PRN metformin 1,000 mg tablet 1,000 mg PO BID lisinopril 5 mg tablet 10 mg PO DAILY Ozempic 2 mg/dose (8 mg/3 mL) pen injector 2 mg subcut QWEEK fluticasone propionate 50 mcg/actuation blister with device 1 inh inhalation Q12H gemfibrozil 600 MG tablet 600 mg PO BID Xarelto 10 mg Tablet 10 mg PO DAILY Discontinued bisacodyl 5 mg tablet,delayed release (DR/EC) 5 mg PO ONCE Qty: 4 0RF Rx Instructions: Per Colonoscopy bowel prep instructions polyethylene glycol 3350 17 gram/dose powder 238 g PO ONCE Qty: 238 0RF Rx Instructions: For Colonoscopy bowel prep, as directed by office Discharge Instructions Additional Instructions: DSU Colonoscopy Post-Op Instructions Instructions for Everyone who is given Anesthesia: For your safety, please do the following for the next twenty-four (24) hours: *Do Not operate a motor vehicle (car, truck, motorcycle, etc.) *Do Not drink alcoholic beverages or use any recreational drugs for the first 24 hours or while taking pain medications. The medications in your body may have a reaction that can be dangerous. *Do Not make any important decisions or sign any important papers. Resume Xarelto on friday Findings: Multiple polyps Diverticula-make sure you are moving your bowels on a regular basis and not straining to go to the bathroom. If you find you are having problems with constipation/straining, there is recommended that you start a fiber product such as Metamucil daily Follow up: My office will send you a letter in 2 to 3 weeks time with the results of the pathology and when we want you to repeat your colonoscopy, most likely in 5 to 7 years time. 1. No lifting over 20 pounds or strenuous activity for the first 24 hours after your procedure. After 24 hours there are no restrictions on your activity but you may feel fatigued for a few days. 2. After you arrive home you may have a light meal and return to your normal diet as you can tolerate it without feeling sick to your stomach. 3. You may have a bloated, gaseous feeling in your belly (abdomen) after a colonoscopy. Passing gas and belching will help. Walking or lying down on your left side with your knees flexed may relieve the discomfort. Call the office at [phone] (Office) or [phone] (Hospital) right away if you notice any of the following: a.Vomiting of blood or ?coffee ground stools?. b.Rectal bleeding 1Tbsp, blood clots or continuous bleeding. c.Severe belly (abdominal) pain. d.A hard distended belly (abdomen) and an inability to pass gas. 4. Please don?t expect to have a normal BM (bowel movement) for 2-3 days after your procedure. 5. If there are questions regarding the findings of your procedure, please contact your doctor 6. If you are unable to contact your doctor with a problem, contact the hospital at [phone]. 7. Continue all your regular medications unless directed otherwise. I understand the above instructions and have no questions. Signature of Patient or Adult Escort Name of Responsible Adult Escort Signature of Nurse Date/Time Stand Alone Forms: Anesthesia Discharge Inst., Brijesh Pryorgiovanna (DSU) Activity:: See above Diet:: See above Discharge Orders Discharge Orders: Discharge Order (Routine); Ordered 10/10/23 Ordered By: Delmi Sylvester DS: Diagnosis Discharge Diagnosis (1) Chronic anticoagulation: Status: Acute (2) Non-insulin dependent diabetes mellitus: Status: Acute (3) Rectal bleeding: Status: Acute (4) Nicotine dependence: Status: Acute (5) Factor V Leiden: (6) Hyperlipidemia: (7) Screening for malignant neoplasm of colon performed: Status: Acute Asessment and Plan: The patient is seen and examined after their colonoscopy.? The patient has been able to pass gas.? They are not having abdominal pain.? They have been able to tolerate liquids and a snack.? They do not have any nausea or vomiting.? They are not having any chest pain or shortness of breath.??? They are not having any rectal bleeding. Their vital signs have been stable-see nursing notes. We discussed findings during their colonoscopy, and any biopsies that were done/polyps that were removed. The patient will be sent a letter with any biopsy results, and when to repeat the colonoscopy.-see discharge instructions. Patient was given explicit instructions to follow-up regarding colonoscopy-refer to discharge instructions.? We reviewed resumption of medications. Patient verbalized understanding and discharged in stable and satisfactory condition- See nursing notes. (8) Adenomatous polyps: Status: Acute (9) Pancolonic diverticulosis: Status: Acute
--- NOTE | 2023-10-09 13:02 | COLE_ITS ---
Date of service: 10/10/23 Time of Service: 11:35 Colonoscopy Report Date of procedure: 10/10/23 Pre-op diagnosis general: Colon cancer screening/rectal bleeding Post-op diagnosis procedure note: other (Diverticula and polyps) Surgeon: Delmi Sylvester Anesthesia Type: General:No Airway Estimated blood loss (mL): 1 Pathology: other Complications: None Disposition: same day Prep: Miralax/Dulcolax Retraction Time: 14 Procedure Description: After informed consent was obtained, explaining risks of the procedure, including but not limits to: bleeding, infections, complications of anesthesia, perforations (which may require antibiotics and /or surgery and stay in the hospital), and abdominal pain/cramping. The patient was taken to the procedure room and placed in a left decubitous position. Monitors were applied and a time out was done. The patients name, date of , procedure, allergies to medications and metal in their body was reviewed. The patient was then sedated. Once sedated and comfortable a rectal exam was done. External exam was normal. Internal exam revealed a normal sphincter tone and no palpable masses. The prostate no palpable masses. The previously lubricated Olympus scope was then introduced (see RN notes for scope number) and retrofelexed. No internal hemorrhoids were identified. The scope was then advanced to the cecum without difficulty. The TI and appendiceal orifice were identified. The scope was then slowly retracted over 14 minutes back into the rectum. Polyps: He has 4 polyps at 20 cm. 3 of them are 0.5 cm in size. One of them is 0.75 cm in size and flat. They removed with a cold biting forcep. This was removed with a cold biting forceps. All of the specimen was retrieved. This will be sent to pathology. There is no bleeding noted from the polypectomy site. He also has a.75 cm pedunculated polyp in the rectum. This is removed with a cold snare. diverticula:pt had a moderate amount of small mouthed diverticula that can do continue all the way over to the cecum.. There were no signs of active bleeding or infection. . The mucosa is pink and healthy w/ a normal vascular pattern. The scope was removed, and the patient was woken up and taken back to Same day surgery in stable condition. The patient tolerated the procedure well and there were no immediate complications. Follow up: The patient should follow up in [5-7 years, path pending, unless they develop changes in bowel habits or other new gastrointestinal complaints. [place] Bowel Prep [place] Bowel Prep Right Colon: 3 Left Colon: 3 Transverse Colon: 3 Total Score: 9
[2023-10-10 10:10] VITALS: BP 132/87; PULSE 80; RESP 16; TEMP 36.1; O2SAT 98
[2023-10-10] MEDS: Lactated Ringers 1,000 ML 80 ML IV (10:32)
--- NOTE | 2023-10-10 10:49 | W.ANESPRE ---
General Info Date of Service Date Performed: 10/10/23 Height: 5 ft 8 in Weight: 93.44 kg Body Mass Index (BMI): 31.3 Surgical Procedure: Operation Date: 10/10/23 10:35 Proposed Procedure Side Surgeon p Colonoscopy Delmi Sylvester, DO Actual Procedure Side Surgeon p Colonoscopy Delmi Sylvester, DO Meds Allergies and Home Medications Allergies Allergy/AdvReac Type Severity Reaction Status Date / Time Penicillins AdvReac Mild Diarrhea Verified 10/10/23 10:23 Home Medication ?Medication ?Instructions ?Recorded gemfibrozil 600 mg tablet 600 mg PO BID 06/25/15 rivaroxaban 10 mg tablet (Xarelto) 10 mg PO DAILY 01/07/19 cetirizine 10 mg tablet 10 mg PO DAILY PRN 02/12/22 metformin 1,000 mg tablet 1,000 mg PO BID 06/19/22 fluticasone propionate 50 1 inh inhalation Q12H 09/02/23 mcg/actuation blister powder for inhalation semaglutide 2 mg/dose (8 mg/3 mL) 2 mg subcut QWEEK 09/02/23 subcutaneous pen injector (Ozempic) lisinopril 5 mg tablet 10 mg PO DAILY 09/25/23 Current Visit Medications: Current Medications Generic Name Dose Route Start Last Admin Trade Name Freq PRN Reason Stop Dose Admin Hyoscyamine Sulfate 0.125 mg 10/10/23 00:45 Hyoscyamine 0.125 Mg Sl/Oral/Chew SL 11/09/23 00:44 DIRECTED PRN Ringer's Solution 1,000 mls @ 80 mls/hr 10/10/23 06:00 10/10/23 10:32 IV 10/10/23 23:59 80 mls/hr INFUSION JARRETT Administration IV Miscellaneous Supplies 1 each 10/10/23 06:00 Iv Access IV 10/10/23 23:59 DIRECTED JARRETT Ondansetron HCl 4 mg 10/10/23 00:45 Ondansetron 4 Mg/2 Ml Vial IVP 11/09/23 00:44 Q4H PRN PRN Nausea / Vomiting Sodium Chloride 0 ml 10/10/23 06:00 Normal Saline Flush 10 Ml Syr IV 10/10/23 23:59 PRN PRN Sodium Chloride 0 ml 10/10/23 06:00 Normal Saline 10 Ml Vial IJ 10/10/23 23:59 DIRECTED PRN Sterile Water 0 ml 10/10/23 06:00 Water,Injection,Sterile 10 Ml Vial IJ 10/10/23 23:59 DIRECTED PRN PFSH Active Problems Active Problems: Problem Status Onset Code Screening for malignant neoplasm of colon performed Acute Z12.11 Rectal bleeding Acute K62.5 Nicotine dependence Acute F17.200 Strain of left patellar tendon Acute S86.812A Non-insulin dependent diabetes mellitus Acute Chronic anticoagulation Acute Z79.01 Stiffness of left knee Acute M25.662 Traumatic tear of medial collateral ligament of knee Acute ~11/22/22 S83.419A Medical History Medical History Pure hyperglyceridemia Hyperlipidemia Cholecystitis Injury of left radial nerve Extensor tenosynovitis of wrist Calcific tendonitis of left shoulder Injury of peripheral nerve of left upper extremity Traumatic rupture of left distal biceps tendon (10/06/21) Amplified musculoskeletal pain, localized Factor V Leiden DVT (deep venous thrombosis) Hx of hyperlipidemia Surgical History Surgical History S/P surgical manipulation of knee joint History of eye surgery History of appendectomy Tobacco Smoking/Tobacco Use Status: Former Tobacco Use Alcohol Alcohol Intake: current Alcohol intake frequency: holidays/special occasions only Substance Use Substance use: Never Substance use type: does not use Vital Signs and Lab Results Vital Signs Most Recent Vital Signs in EMR: Most Recent Vital Signs Temp Pulse Resp BP Pulse Ox 36.1 C L 80 16 132/87 98 10/10/23 10:10 10/10/23 10:10 10/10/23 10:10 10/10/23 10:10 10/10/23 10:10 Point of Care Results Point of Care Results: Finger Stick Blood Glucose 112 10/10/23 10:45 Lab Results Blood Type / Crossmatch: No Data to Display Complete Blood Count: No Data to Display Complete Metabolic Panel: No Data to Display Liver Function Panel: No Data to Display Coagulation Panel: No Data to Display Cardiac Panel: No Data to Display Arterial Blood Gas: No Data to Display Venous Blood Gas: No Data to Display Pancreas Panel: No Data to Display Thyroid Panel: No Data to Display Infectious Disease: No Data to Display Blood Cultures: No Data to Display Toxicology Panel: No Data to Display Imaging and Studies Imaging and Studies Study information below may be from another EMR and interpreted by another provider. Please see original notes in EMR for more complete details. EKG Summary: 04/19/23: Exam: Resting ECG Reason for Exam: preop screening Patient Location: I HR:46 bpm ECG Measurements Heart Rate 46 AXIS OR 156 P 10 QRSd 79 QRS -5 QT 389 T61 QTc 341 Conclusion Sinus bradycardia...rate< 50 Borderline low voltage, extremity leads...all extremity leads <0.6mV Otherwise normal ECG Pulmonary Function Summary: Impression Normal pulmonary function test Clinical Correlation therefore is recommended. 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 Anesthesia Assessment and Plan Anesthesia History Personal History: No History of Anesthesia Complications Family History: No Family History of Anesthesia Complications Exercise Tolerance Exercise Tolerance: Metabolic Equivalents>4 Pertinent Negatives Pertinent Negatives: No Symptoms of GERD Cardiac & Pulmonary Exam Cardiac Exam: Normal S1/S2 Heart Sounds Pulmonary Exam: Clear Bilateral Breath Sounds Implantable Cardiac Device Does patient have a Pacemaker or an ICD?: No Airway Exam Known Difficult Airway: No Mallampati Class: 2 Mouth Opening: Normal (> 3cm) Thyromental Distance: Greater than 3 cm Neck Range of Motion: Full ROM Neck Circumference: Normal Teeth Condition: Generalized Poor Dentition and Loose or Chipped ASA Classification ASA Score: ASA 3 Emergency Case?: No NPO Status NPO Status: NPO Clears >2 hours, Solids >8 hours Anesthesia Plan Resuscitation Status: Full Code Anesthesia Technique: General Anesthesia Airway Planned: Natural Airway Monitors Used: Standard Monitors
[2023-10-10 10:51] VITALS: BMI 31.3
--- NOTE | 2023-10-10 11:15 | BOWEL_PTH ---
PATIENT: Ruddy Daniels LOC: [facility] U#:[id number] AGE/SX: 52/M ROOM: RE10/10/[address]: Delmi Sylvester : 1970 BED: DIS: 10/10/2023 SPEC #: [id number] RECD: 10/10/23 12:49 STATUS: GIO REQ #: [id number] WILLEM: 10/10/23 11:[address]: Delmi Sylvester DEPT: Surgical Specimen RECD BY: Anila Hare ENTERED: 10/10/23 12:50 SP TYPE: Bowel OTHR DR: Meghana Murphy Tissues: 1 - BIOPSY BOWEL 2 - BIOPSY BOWEL Procedures: GROSS AND MICRO LEVEL 4 Comments: [id number]
[2023-10-10 11:30] VITALS: BP 96/67; PULSE 86; RESP 15; TEMP 36.1; O2SAT 95
--- NOTE | 2023-10-10 11:36 | W.ANESPOSTOP ---
Postoperative Evaluation Date, Time and Location Date Performed: 10/10/23 Time Performed: 11:31 Patient Location: Day Surgery Unit Vital Signs Most Recent Imported Vital Signs: Most Recent Vital Signs Temp Pulse Resp BP Pulse Ox 36.1 C L 86 15 96/67 L 95 10/10/23 11:30 10/10/23 11:30 10/10/23 11:30 10/10/23 11:30 10/10/23 11:30 Pain Score Most Recent Pain Score: Most Recent Pain Score Pain Level 0 10/10/23 11:30 Assessment Mental Status: Arousable with meaningful communication Airway and Respiratory Function: Patent airway with normal (patient baseline) respiratory exam Cardiovascular Function: Hemodynamically Stable Hydration Status: Adequately Hydrated Nausea & Vomiting: No Nausea or Vomiting Pain: Pt. Denies Any Pain Peripheral Nerve Block: Patient did not receive a nerve block
[2023-10-10 12:11] VITALS: BP 108/88; PULSE 67; RESP 14; TEMP 36.5; O2SAT 97
== END 2023-10-10 12:20 | disposition home or self-care (01) ==
LOC: SUR 10:00
PROVIDERS: PCP Nurse Practitioner Family; Visit Provider Surgery
PROC: 0DJD8ZZ Inspection of Lower Intestinal Tract, Via Natural or Artificial Opening Endoscopic (ICD-10-PCS; CPT 45378; principal; 2023-10-10 10:30)
DX: K62.5 Hemorrhage of anus and rectum; F17.200 Nicotine dependence, unspecified, uncomplicated; Z12.11 Encounter for screening for malignant neoplasm of colon; K57.30 Diverticulosis of large intestine without perforation or abscess without bleeding; K63.5 Polyp of colon; K62.89 Other specified diseases of anus and rectum
CPT/HCPCS: 45385; 45380; 88305; J2001; J2704

== ENCOUNTER 2024-01-13 18:07 | Emergency (ER) | payer MEDICAID, SELFPAY ==
[2024-01-13 18:13] VITALS: BP 135/94; PULSE 110; RESP 18; TEMP 36.8; O2SAT 97
--- NOTE | 2024-01-13 18:28 | ED.GENADUL_ITS ---
Discharge Plan Disposition Patient Disposition: Home Condition: Stable Discharge Details Clinical Impression: Cat bite of multiple sites of hand and fingers Primary Care Provider: Meghana Murphy ED Provider: Aditya Caballero Home Meds and New Rx's Prescriptions: New amoxicillin-pot clavulanate 875-125 mg tablet 1 tab PO BID 14 Days Qty: 28 0RF azithromycin 250 mg tablet See Rx Instructions .ROUTE .COMPLEX Qty: 6 0RF Rx Instructions: For 250 mg dose pack: take 500 mg today (day 1), then 250 mg for 4 days (days 2-5) Continued cetirizine 10 mg tablet 10 mg PO DAILY PRN metformin 1,000 mg tablet 1,000 mg PO BID lisinopril 5 mg tablet 10 mg PO DAILY Ozempic 2 mg/dose (8 mg/3 mL) pen injector 2 mg subcut QWEEK fluticasone propionate 50 mcg/actuation blister with device 1 inh inhalation Q12H gemfibrozil 600 MG tablet 600 mg PO BID Xarelto 10 mg Tablet 10 mg PO DAILY Discharge Instructions Instructions: Azithromycin (Systemic), Amoxicillin and Clavulanate, Animal Bites ED Additional Instructions: You were seen in the emergency department for the cat bites and scratches of both your hands. I am starting you on 2 different antibiotics the Augmentin is for bite wounds from animals, the 5 days of azithromycin is for preventing cat scratch disease. We updated your tetanus as well, and thoroughly washed out your wounds. These all need to heal by secondary intent which means from the bottom up as these have a high risk for infection, take the antibiotics as directed, take 1000 mg of Tylenol every 6 hours, elevate and ice your hands to help reduce swelling. Please return to the ER for evaluation if you are experiencing fever, nausea, weakness, red streaking up the arms or signs of infection like purulent drainage from the wounds. Referrals: Meghana Murphy [Primary Care Provider] - Discharge Data Discharge Date/Time-TO BE ENTERED AT DEPARTURE: 01/13/24 20:20 HPI General Date/Time Provider Initiated Documentation: 01/13/24 18:17 . HPI Narrative: 53 year-old male presents to ED today by POV/ambulating with a chief complaint of animal bite/scratch - attacked by his [id number]'s cat with onset just prior to arrival, has several deep wounds to bilateral hands only. Quality described as painful to touch, no radiation to purulent drainage, redness spreading up the arm, proximal forearm injuries. Severity is described as moderate to severe. Palliating factors include nothing specific- only quickly rinsed with water prior to arrival. Provoking factors include nothing specific. Events leading up to the incident/Associated Symptoms: Patient has unknown last tetanus update. Patient is anticoagulated on Xarelto. Related Data Home Medications ?Medication ?Instructions ?Recorded ?Confirmed gemfibrozil 600 mg tablet 600 mg PO BID 06/25/15 01/13/24 rivaroxaban 10 mg tablet (Xarelto) 10 mg PO DAILY 01/07/19 01/13/24 cetirizine 10 mg tablet 10 mg PO DAILY PRN 02/12/22 01/13/24 metformin 1,000 mg tablet 1,000 mg PO BID 06/19/22 01/13/24 fluticasone propionate 50 1 inh inhalation Q12H 09/02/23 01/13/24 mcg/actuation blister powder for inhalation semaglutide 2 mg/dose (8 mg/3 mL) 2 mg subcut QWEEK 09/02/23 01/13/24 subcutaneous pen injector (Ozempic) lisinopril 5 mg tablet 10 mg PO DAILY 09/25/23 01/13/24 amoxicillin 875 mg-potassium 1 tab PO BID 14 days #28 tabs 01/13/24 clavulanate 125 mg tablet azithromycin 250 mg tablet See Rx Instructions PO .COMPLEX #6 01/13/24 tabs Previous Rx's ?Medication ?Instructions ?Recorded amoxicillin 875 mg-potassium 1 tab PO BID 14 days #28 tabs 01/13/24 clavulanate 125 mg tablet azithromycin 250 mg tablet See Rx Instructions PO .COMPLEX #6 01/13/24 tabs Allergies Allergy/AdvReac Type Severity Reaction Status Date / Time Penicillins AdvReac Mild Diarrhea Verified 10/10/23 10:23 General Stated Complaint: AnimalBite MONICA: 3 Review of Systems All systems reviewed & are unremarkable except as noted in HPI and below Exam Narrative Exam Narrative: GENERAL APPEARANCE: Well-nourished, non-toxic, awake and alert, atraumatic, no acute distress. SKIN: Warm, pink, dry, numerous superficial scratches to the left forearm and wrist, numerous superficial lacerations to the right hand, there is 1 deep 2 cm laceration to the webspace between right fourth and fifth fingers as well as a smaller 1 on the dorsal base of the hand, bilateral radial pulses 2+, no lymphadenitis, range of motion intact in all fingers of both hands HEAD: Normocephalic, atraumatic, normal hair distribution for gender/age. EYES: Normal conjunctiva, no exudates on lids/lashes. ENT: Nares patent, no circumoral cyanosis, no facial swelling NECK: Supple, trachea midline, painless cervical ROM. LUNGS/CHEST: Non-labored respirations, normal A/P diameter, symmetrical expansion, no chest wall deformity HEART (CV/PV): No peripheral edema, no JVD. ABDOMEN: Soft, non-distended, no guarding. MSK: Normal ROM, no swelling/deformity to bilateral UEs or LEs, moving all extremities without weakness, no cyanosis, spine midline without tenderness, normal curvature. NEURO: Mental Status AAOx4 - alert to person, place, time, events No facial droop, no forehead involvement. Motor: No focal weakness - strength 5/5 in bilateral UEs and LEs, proximal and distal, symmetric. Sensory: sensation intact to light touch globally. Gait normal: patient ambulated without ataxia into ED room. PSYCH: euthymic, cooperative, pleasant, appropriate speech Course Vital Signs Vital signs: Vital Signs Temperature 36.8 C 01/13/24 18:13 Pulse 110 H 01/13/24 18:13 Respiratory Rate 18 01/13/24 18:13 Blood Pressure 135/94 H 01/13/24 18:13 Pulse Oximetry 97 01/13/24 18:13 Temperature 36.8 C 01/13/24 18:13 Temperature Source Temporal Artery Scan 01/13/24 18:13 Pulse 110 H 01/13/24 18:13 Respiratory Rate 18 01/13/24 18:13 Blood Pressure 135/94 H 01/13/24 18:13 Blood Pressure Position Sitting 01/13/24 18:13 Pulse Oximetry 97 01/13/24 18:13 Oxygen Delivery Method Room Air 01/13/24 18:13 Oxygen Flow Rate 0 01/13/24 18:13 Pain Level 4 01/13/24 18:13 Medical Decision Making This dictation utilizes [id number] dictation software and may contain unedited grammatical errors. 53 year-old male presents to ED today by POV/ambulating with a chief complaint of animal bite/scratch - attacked by his qtzrwov-nb-oir's cat with onset just prior to arrival, has several deep wounds to bilateral hands only. Quality described as painful to touch, no radiation to purulent drainage, redness spreading up the arm, proximal forearm injuries. Severity is described as moderate to severe. Palliating factors include nothing specific- only quickly rinsed with water prior to arrival. Provoking factors include nothing specific. Events leading up to the incident/Associated Symptoms: Patient has unknown last tetanus update. Patients' medical history: History of DVT, hyperlipidemia. Family and social history: Noncontributory. Pertinent exam findings / vital signs include numerous superficial scratches to the left forearm and wrist, numerous superficial lacerations to the right hand, there is 1 deep 2 cm laceration to the webspace between right fourth and fifth fingers as well as a smaller 1 on the dorsal base of the hand, bilateral radial pulses 2+, no lymphadenitis, range of motion intact in all fingers of both hands Differential / pathologies of concern include cat bite, scratch. Diagnostic studies of: -CBC, CMP-benign. Interventions of: -Extensive washout performed by staff command and control officer, I placed 3 Steri-Strips on some of the deeper hand lacerations and loose fashion to allow any drainage but to steady them from hand movement causing extensive discomfort to the open wound. -Started on Augmentin for cat bite, azithromycin to prevent cat scratch disease, updated Tdap ED Course/Assessment/Plan: 53-year-old male presents with extensive right hand cat bite, more minor left forearm and wrist superficial lacerations, underwent extensive washout, started on antibiotics, updated tetanus, counseled on elevation and ice, adding Tylenol, monitoring closely for signs of infection and strict return criteria. Findings not consistent with lymphadenitis, tendon rupture. Disposition of cat bite of multiple sites of hand and fingers. Patient verbalized understanding of the plan and return to ED criteria and engaged in shared decision making. Medical Records Medical records reviewed: Yes I reviewed the patient's medical records. Lab Data Lab results reviewed: Yes I reviewed the patient's lab results. Labs: Laboratory Tests Range/Units 01/13/24 19:04 WBC (4.4-10.8) 10^3/uL 7.06 RBC (4.36-5.78) 10^6/uL 5.09 Hgb (13.5-17.5) g/dL 15.1 Hct (40.0-50.0) % 43.8 MCV (80-95) fL 86 MCH (27.0-33.0) pg 29.7 MCHC (32.0-36.0) % 34.5 RDW (11.8-14.1) % 12.7 Plt Count (130-400) 10^3/uL 242 MPV (8.0-11.0) fL 12.3 H Immature Gran % % 0.3 Neutrophils % % 49.3 Lymphocytes % % 36.1 Monocytes % % 7.4 Eosinophils % % 5.9 Basophils % % 1.0 Nucleated RBC % (0.0-0.3) % 0.0 Absolute Neutrophils (1.2-6.7) 10^3/uL 3.48 Absolute Lymphocytes (1.2-3.4) 10^3/uL 2.55 Absolute Monocytes (0.1-0.8) 10^3/uL 0.52 Absolute Eosinophils (0.0-0.7) 10^3/uL 0.42 Absolute Basophils (0.0-0.2) 10^3/uL 0.07 Sodium (136-145) mmol/L 141 Potassium (3.5-5.1) mmol/L 3.8 Chloride (98-107) mmol/L 107 Carbon Dioxide (21.0-32.0) mmol/L 24.4 Anion Gap (3-11) mmol/L 9.6 BUN (7-18) mg/dL 13 Creatinine (0.70-1.30) mg/dL 1.0 Est GFR (CKD-EPI 2020) (mL/min/1.73m2) 91.12 Glucose (74-106) mg/dL 167 H Calcium (8.5-10.1) mg/dL 9.0 Total Bilirubin (0.2-1.0) mg/dL 0.35 AST (15-37) U/L 34 ALT (16-63) U/L 65 H Alkaline Phosphatase (46-116) U/L 73 Total Protein (6.4-8.2) g/dL 7.6 Albumin (3.4-5.0) g/dL 4.3 Quality:SDOH Health Related Social Needs: No Data to Display PFSH All Active Problems (Updated 01/13/24 @ 19:53 by JOSE MANUEL Marino) Cat bite of multiple sites of hand and fingers (Acute) Pancolonic diverticulosis (Acute) Adenomatous polyps (Acute) Screening for malignant neoplasm of colon performed (Acute) Rectal bleeding (Acute) Nicotine dependence (Acute) Strain of left patellar tendon (Acute) Non-insulin dependent diabetes mellitus (Acute) Chronic anticoagulation (Acute) Stiffness of left knee (Acute) Traumatic tear of medial collateral ligament of knee (Acute ~11/22/22) Medical History (Updated 01/13/24 @ 19:53 by JOSE MANUEL Marino) Hyperplastic colon polyp (~09/2023) Pure hyperglyceridemia Hyperlipidemia Cholecystitis Injury of left radial nerve Extensor tenosynovitis of wrist Calcific tendonitis of left shoulder Injury of peripheral nerve of left upper extremity Traumatic rupture of left distal biceps tendon (10/06/21) Amplified musculoskeletal pain, localized Factor V Leiden DVT (deep venous thrombosis) Hx of hyperlipidemia Surgical History (Updated 10/13/23 @ 07:37 by Lori Monae) History of colonoscopy (~09/2023) S/P surgical manipulation of knee joint History of eye surgery History of appendectomy Family History (Updated 04/19/23 @ 14:29 by Naila Gutierrez MD) Maternal Cousin Stroke Diabetes Mother Cancer small cell lung cancer Hypertension Father Cancer renal cell carcinoma Hypertension Maternal Grandfather Cancer lung cancer Paternal Grandfather Cancer lung cancer vs aguilar's lung Maternal Grandmother Diabetes Paternal Grandmother Diabetes Social History Smoking/Tobacco Use Status: Former Tobacco Use Quit Date: 01/24/23 Smoking risk assessment performed?: Yes Alcohol Intake: current Alcohol Intake frequency: holidays/special occasions only Drug use: Never Substance use type: does not use Housing: house Current gender identity: male Do you feel safe at home: Yes Do you feel safe in your relationship?: Yes
[2024-01-13 19:05] VITALS: BP 135/94; PULSE 110; RESP 18; TEMP 36.8; O2SAT 97
--- NOTE | 2024-01-13 19:11 | NUR.NOTE ---
ANimal bite report faxed to [facility] officer Dusty Navarrete. Message left on cell phone about report. Nursing Note:
[2024-01-13 19:14] LABS: Abs Immature Grans 0.02 10^3/uL (0.0-0.06); Absolute Basophil Count 0.07 10^3/uL (0.0-0.2); Absolute Eosinophil Count 0.42 10^3/uL (0.0-0.7); Absolute Lymphocyte Count 2.55 10^3/uL (1.2-3.4); Absolute Monocyte Count 0.52 10^3/uL (0.1-0.8); Absolute Neutrophil Count 3.48 10^3/uL (1.2-6.7); Eosinophils % 5.9 %; HCT 43.8 % (40.0-50.0); HGB 15.1 g/dL (13.5-17.5); Immature Grans % 0.3 %; Lymphocytes % 36.1 %; MCH 29.7 pg (27.0-33.0); MCHC 34.5 % (32.0-36.0); MCV 86 fL (80-95); MPV 12.3 fL (8.0-11.0); Monocytes % 7.4 %; Neutrophils % 49.3 %; Platelet Count 242 10^3/uL (130-400); RBC 5.09 10^6/uL (4.36-5.78); RDW 12.7 % (11.8-14.1); RDW-SD 39.8 fL; WBC 7.06 10^3/uL (4.4-10.8)
[2024-01-13] MEDS: Amoxicillin 875/Clav. 125 TAB PO (19:21)
[2024-01-13] MEDS: Azithromycin 250 MG TAB 500 MG PO (19:21)
[2024-01-13] MEDS: Acetaminophen 500 MG TAB 1000 MG PO (19:27)
[2024-01-13 19:28] LABS: ALT 65 U/L (16-63); AST 34 U/L (15-37); Albumin 4.3 g/dL (3.4-5.0); Alkaline Phosphatase 73 U/L (46-116); Anion Gap 9.6 mmol/L (3-11); BUN 13 mg/dL (7-18); Bilirubin, Total 0.35 mg/dL (0.2-1.0); CO2 24.4 mmol/L (21.0-32.0); Chloride 107 mmol/L (98-107); Estimated GFR 91.12 (mL/min/1.73m2); Glucose 167 mg/dL (74-106); Potassium 3.8 mmol/L (3.5-5.1); Sodium 141 mmol/L (136-145); Total Protein 7.6 g/dL (6.4-8.2)
[2024-01-13] MEDS: Diph,Pertuss(Acell),Tet Vac/Pf 0.5 ML SYR IM (20:16)
== END 2024-01-13 20:20 | disposition home or self-care (01) ==
PROVIDERS: Emergency Provider Physician Assistant; PCP Nurse Practitioner Family
DX: S50.812A Abrasion of left forearm, initial encounter (principal); S60.812A Abrasion of left wrist, initial encounter; S61.411A Laceration without foreign body of right hand, initial encounter; E78.5 Hyperlipidemia, unspecified; D68.51 Activated protein C resistance; E11.9 Type 2 diabetes mellitus without complications; Z23 Encounter for immunization; Z86.718 Personal history of other venous thrombosis and embolism; Z79.01 Long term (current) use of anticoagulants; Z79.84 Long term (current) use of oral hypoglycemic drugs; Z79.85 Long-term (current) use of injectable non-insulin antidiabetic drugs; Z87.891 Personal history of nicotine dependence
CPT/HCPCS: 80053; 90715; 99283; 85025

== ENCOUNTER 2024-09-21 03:10 | Outpatient (CLI) | payer MEDICAID, SELFPAY ==
--- NOTE | 2024-09-21 10:04 | DI.CTLCSR_ITS ---
Exam(s) CT CHEST LUNG CANCER SCREEN EXAM: CT CHEST LUNG CANCER SCREEN CLINICAL HISTORY: H/O NICOTINE DEPENDENCE,Z87.891,LUNG CANCER SCREENING TECHNIQUE: Imaging Protocol: Axial computed tomography images with coronal and sagittal reformatted images were created and reviewed. Low dose screening protocol. COMPARISON: CR,XR XR PORTABLE CHEST AP from 04/19/2023 FINDINGS: Tracheobronchial tree: No bronchiectasis or mucus plugging. Mediastinum and Jacki: No dominant adenopathy or fluid collection. Pulmonary parenchyma: No consolidation or dominant measurable mass. Mild paraseptal and centrilobular emphysematous changes. No significant interstitial changes. Lung Nodules: None. Pleura: No effusion. No pneumothorax. Heart: The heart is not dilated. No coronary artery calcifications are seen. No pericardial effusion. Aorta: Thoracic aorta non-dilated. Upper abdomen: Enlarged liver with severe hepatic steatosis. Cholecystectomy. Bones: Unremarkable for age. Soft Tissues: Unremarkable. IMPRESSION: No suspicious pulmonary nodules. Lung RADS Cat 1 - Negative: No nodules and definitely benign nodules Lung-RADS 1.0 CATEGORIES: Category 0 - Prior chest CT exam(s) being located for comparison. Category 1 - Annual screening in 12 months. No nodules or definitely benign nodules. Category 2 - Annual screening in 12 months. Benign appearance. Nodules with low likelihood of becoming active cancer. Category 3 - 6-month follow-up. Probably benign. Short-term follow-up suggested. Nodules with low likelihood of becoming active cancer. Category 4A - 3-month follow-up and CT/PET if >8 mm in size. Suspicious finding. Findings which require additional testing. Category 4B - Findings which require additional testing and tissue sampling. Category 4X - Category 3 or 4 nodules with additional features or imaging findings that increases the suspicion of malignancy. Modifier S- Potentially clinically significant findings (non lung cancer) RADIATION DOSE DELIVERED: Total DLP DATA REPOSITORY: All CT scans at this facility are submitted to the National Radiology Data Registry (NRDR) Dose Index Registry (DIR) with the [employer] (ACR). RADIATION OPTIMIZATION: All CT scans at this facility use at least one of these dose optimization techniques: automated exposure control; mA and/or kV adjustment per patient size (includes targeted exams where dose is matched to clinical indication); or iterative reconstruction.
== END 2024-09-21 03:30 ==
LOC: DI 03:10
PROVIDERS: PCP Nurse Practitioner Family; Visit Provider Nurse Practitioner Family
DX: Z12.2 Encounter for screening for malignant neoplasm of respiratory organs (principal); Z87.891 Personal history of nicotine dependence
CPT/HCPCS: 71271